=== PATIENT | male | born 1970 | race Caucasian/White ===

== ENCOUNTER 2022-06-10 10:28 | Emergency (ER) | payer MEDICAID, SELFPAY ==
[2022-06-10 10:29] VITALS: BP 140/96; PULSE 99; RESP 16; TEMP 36.1; O2SAT 100; BMI 23.3
--- NOTE | 2022-06-10 10:39 | EDS_ITS ---
HPI History of Present Illness Chief Complaint: Rash Detail of Chief Complaint: Painful rash left side of neck Informant: patient Onset/Context/Timing Onset: Days (Onset 5 days ago) Context: Sudden Onset Timing: Continuous Quality: Painful erythematous rash with clusters and blisters and crusting Location: Left lower jaw and anterior left neck. The rash does not cross midline on Current Severity: Mild Maximum Severity: Moderate Worsened by: Nothing Relieved by: Nothing Associated Symptoms Associated Symptoms: No asymmetry of the smile Narrative Narrative: Patient is a 52-year-old male who presents with painful rash that started this past Thursday. He denies headache. Denies double vision, blurred vision loss of vision. Does complain of ear pain. He denies vertigo. He denies facial asymmetry. He states his skin is sensitive. He is on no immunosuppressive meds. Prior similar symptoms: No Recent Illness/Hospitalization: No PFSH PFSH Medical History no medical history no medical history Home Medications gabapentin 300 mg capsule (Neurontin) 300 mg PO UD #90 caps 06/10/22 [Rx Last Taken Unknown] Allergy/AdvReac Type Severity Reaction Status Date / Time No Known Allergies Allergy Verified 06/10/22 10:32 Social History (Updated 06/10/22 @ 10:[address] Daron Stovall MD) household members: none Smoking Status: Current every day smoker alcohol intake: current ROS ROS ED Constitutional Constitutional ED: Denies chills, fever(s), subjective, sweats or weight loss Eyes Eyes: Denies blurry vision, change in vision or diplopia ENT ENT ED: Denies ear pain, rhinorrhea or sore throat Cardiovascular Cardiovascular: Denies chest pain, orthopnea, palpitations, paroxysmal nocturnal dyspnea or racing heartbeat Respiratory/Chest Respiratory/Chest: Denies cough, dyspnea, dyspnea on exertion, orthopnea or paroxysmal nocturnal dyspnea Gastrointestinal Gastrointestinal: Denies nausea or vomiting Integumentary Reports rash Neurologic Neurologic: Denies headache(s), paresthesias or weakness Hematologic/Lymphatic Hematologic/Lymphatic: Denies easy bleeding, easy bruising or lymphadenopathy EXAM Physical Exam Const Vital Signs: 06/10/22 10:29 Temperature 97.0 F L Temperature Source Temporal Pulse Rate 99 Respiratory Rate 16 Blood Pressure 140/96 H Blood Pressure Mean 110 Pulse Ox 100 Oxygen Delivery Method Room Air Positive well nourished, well developed and unkempt General Appearance ED: unkempt, well developed and NAD; Negative for pallor HEENT Reports TM's clear and moist mucous membranes HEENT Narrative: Patient has blisters in clusters left ear. There is rash involving the lower left jaw area and anterior neck. The rash does not cross midline. There are few areas of ulceration. There is no induration, warmth or lymphangitis. There is no drainage from the rash. Negative for trauma Tympanic Membrane ED: Yes TM's clear Eyes PERRL and EOMs intact bilaterally General Eye ED: Negative for pale conjunctiva or scleral icterus Neck No no lymphadenopathy, No supple and No no JVD Neck Narrative: Patient does have shotty lymph nodes left cervical region. Chest Wall inspection of chest normal and palpation of chest normal Resp normal respiratory effort and clear to auscultation bilaterally Cardio regular rate, regular rhythm, S1 normal heart sound and S2 normal heart sound Neuro oriented x3 and CN's II-XII intact bilaterally Psych mental status grossly normal Appearance: unkempt Skin Skin Narrative: Rash that involves the neck face region is consistent with shingles. General Skin Exam: Negative for jaundice or pallor MDM MDM MDM Narrative Medical decision making narrative: She was informed he has shingles. Since his symptoms started 5 days ago and there is no evidence or concern for [place] Anderson syndrome patient was not placed on antiviral. He was placed on Neurontin for his neuropathic pain. Discharge Plan Triage Chief Complaint: Rash ED Provider: Daron Stovall Dx/Rx/DC Orders Clinical Impression: Cervical radiculopathy due to herpes zoster Instructions: ED Shingles (Herpes Zoster) Prescriptions: New gabapentin [Neurontin] 300 mg capsule 300 mg PO UD Qty: 90 0RF Rx Instructions: Take 1 capsule daily x3 days then 1 capsules 2 times a day then 1 capsules 3 times a day Referrals: Kayli Christy [Non-Staff] - Disposition Disposition: Home, Self Care
== END 2022-06-10 11:02 | disposition home or self-care (01) ==
PROVIDERS: Emergency Provider Emergency Medicine; Visit Provider Emergency Medicine
DX: B02.9 Zoster without complications (principal); M54.12 Radiculopathy, cervical region; G62.9 Polyneuropathy, unspecified; H92.09 Otalgia, unspecified ear; F17.200 Nicotine dependence, unspecified, uncomplicated
CPT/HCPCS: 99282

== ENCOUNTER → 2022-08-13 | Outpatient (CLI) | payer MEDICAID, SELFPAY ==
[2022-08-13 17:50] LABS: Erythrocyte Sedimentation Rate 21 mm/hr (0-20)
[2022-08-13 17:52] LABS: Hematocrit 27.5 % (40-54); Hemoglobin 8.6 g/dL (13.0-16.5); Mean Corp Hgb Conc 31.3 g/dL (32-36); Mean Corpuscular Hgb 28.3 pg (27.0-32.0); Mean Corpuscular Volume 90.5 fL (80-94); Mean Platelet Vol. 10.6 fl (6.2-12.0); Platelet Count 307 K/mm3 (150-450); RBC Distribution Width CV 15.7 % (11.6-14.6); RBC Distribution Width SD 52.1 fl (35.1-43.9); Red Blood Count 3.04 M/mm3 (4.6-6.2); White Blood Count 8.5 K/mm3 (4.4-11.0)
[2022-08-13 18:15] LABS: AST(SGOT) 55 U/L (15-37); Alanine Aminotransfer ALT/SGPT 69 U/L (16-61); Albumin, Serum 3.5 g/dL (3.2-5.0); Alkaline Phosphatase 396 U/L (45-117); Anion Gap 7 (5-15); BUN 23 mg/dL (7-18); BUN/Creat Ratio 28.3 RATIO (10-20); Calcium,Total 8.9 mg/dL (8.5-10.1); Chloride 104 mmol/L (98-107); Creatinine, Serum 0.81 mg/dL (0.70-1.30); EST Glomerular Filtration Rate 107 mL/min (>60); Est Glom Filt Rate - Afr Amer 129 mL/min (>60); Globulin 3.4 g/dL (2.2-4.2); Glucose 89 mg/dL (74-106); Potassium 3.5 mmol/L (3.5-5.1); Protein, Total 6.9 g/dL (6.4-8.2); Sodium Level 139 mmol/L (136-145); Thyroid Stim Hormone (TSH) 3.32 uIU/mL (0.358-3.74)
[2022-08-15 15:05] LABS: Ferritin 16 ng/mL (26-388); Iron 41 ug/dL (65-175)
== END | disposition home or self-care (01) ==
PROVIDERS: Referring Provider Internal Medicine Gastroenterology; Visit Provider Internal Medicine Gastroenterology
DX: R63.4 Abnormal weight loss (principal); R11.0 Nausea; D50.9 Iron deficiency anemia, unspecified
CPT/HCPCS: 36415; 80053; 82728; 83540; 84436; 84443; 85027; 85652

== ENCOUNTER 2022-08-31 11:46 | Inpatient (IN) | payer MEDICAID, SELFPAY ==
[2022-08-31] VITALS (7 sets, daily range): BP systolic 113–144; BP diastolic 79–112; PULSE 95–119; RESP 9–21; TEMP 36–36.6; O2SAT 100; BMI 20.7; BMI 21.3
--- NOTE | 2022-08-31 12:00 | EKG12_ITS ---
Test Reason : WEAKNESS Blood Pressure : / mmHG Vent. Rate : 119 BPM Atrial Rate : 119 BPM P-R Int : 126 ms QRS Dur : 078 ms QT Int : 340 ms P-R-T Axes : 070 -59 083 degrees QTc Int : 478 ms Sinus tachycardia Left axis deviation Inferior infarct , age undetermined Abnormal ECG Confirmed by PONCHO NEWTON, EZEKIEL ([id number]), editor dictionary TOÑO GRUBER ([id number]) on 09/02/2022 11:10:06 AM Referred By: GIGI Confirmed By:EZEKIEL ISAAC MD
[2022-08-31] MEDS: 0.9% Normal Saline 1,000 ML 999 ML IV (12:07)
--- NOTE | 2022-08-31 12:08 | EDS_ITS ---
HPI <ARMANDO Hurt - Last Filed: 08/31/22 13:57> History of Present Illness Chief Complaint: Weakness Narrative Narrative: 52-year-old male was found on the floor at home unable to move his left arm or leg and was brought in by EMS. He cannot tell me if he fell or how long he has been there. He he states he feels weak but has no acute complaints. PFSH <ARMANDO Hurt - Last Filed: 08/31/22 13:57> [facility] Medical History (Updated 08/31/22 @ 13:[address] Francis Ross MD) Contact with and (suspected) exposure to other viral communicable diseases Esophageal cancer Home Medications pantoprazole 40 mg tablet,delayed release 40 mg PO DAILY 08/31/22 [History Last Taken Unknown] Allergy/AdvReac Type Severity Reaction Status Date / Time No Known Allergies Allergy Verified 06/10/22 10:32 Social History (Updated 06/10/22 @ 10:[address] Daron Stovall MD) household members: none Smoking Status: Former smoker alcohol intake: current ROS <ARMANDO Hurt - Last Filed: 08/31/22 13:57> ROS ED ROS Narrative Constitutional: Negative for fever. Eyes: Negative for visual change. ENT: Negative for sore throat, rhinorrhea. CVS: Negative for chest pain. Respiratory: Negative for shortness of breath. GI: Negative for abdominal pain, nausea, vomiting. : Negative for dysuria. Neuro: Negative for headache. Skin: Negative for rash, abscess, or wound. Musc: Negative for joint pain, swelling, trauma. Heme: Negative for easy bruising, bleeding, lymphadenopathy. EXAM <ARMANDO Hurt - Last Filed: 08/31/22 13:57> Physical Exam Narrative Exam Narrative: CONST: Patient sitting in no acute distress. EYES: Normal inspection. ENT: Normal inspection, dry mucous membranes. NECK: Normal inspection. RESP: No respiratory distress, CTAB. CVS: Regular rate and rhythm, no murmur, no gallop. ABD: Soft and nontender, no guarding or rebound, nondistended. SKIN: Color normal, no rash, warm, dry, intact. EXTREMITIES: Normal appearance, no pedal edema. NEURO: Patient alert and keenly responsive, correctly identifies month and age, follows simple commands, extraocular movements and visual denise intact, left facial droop, complete paralysis of left arm and leg, no drift of right arm and leg with normal finger-nose, PSYCH: Normal affect. Const Vital Signs: 08/31/22 11:48 08/31/22 11:51 08/31/22 11:51 Temperature 96.8 F L Temperature Source Temporal Pulse Rate 118 H 119 H Respiratory Rate 21 H 10 L Respiratory Effort Normal Respiratory Pattern Normal Blood Pressure 137/112 H 137/112 H Blood Pressure Mean 120 120 Pulse Ox 100 100 Oxygen Delivery Method Room Air Room Air 08/31/22 13:00 Temperature Temperature Source Pulse Rate 95 Respiratory Rate 9 L Respiratory Effort Respiratory Pattern Blood Pressure 113/79 Blood Pressure Mean 90 Pulse Ox 100 Oxygen Delivery Method Room Air <Dr. Francis Ross MD - Last Filed: 08/31/22 13:43> Physical Exam Const Vital Signs: 08/31/22 11:48 08/31/22 11:51 08/31/22 11:51 Temperature 96.8 F L Temperature Source Temporal Pulse Rate 118 H 119 H Respiratory Rate 21 H 10 L Respiratory Effort Normal Respiratory Pattern Normal Blood Pressure 137/112 H 137/112 H Blood Pressure Mean 120 120 Pulse Ox 100 100 Oxygen Delivery Method Room Air Room Air 08/31/22 13:00 Temperature Temperature Source Pulse Rate 95 Respiratory Rate 9 L Respiratory Effort Respiratory Pattern Blood Pressure 113/79 Blood Pressure Mean 90 Pulse Ox 100 Oxygen Delivery Method Room Air [facility] <ARMANDO Hurt - Last Filed: 08/31/22 13:57> [facility] Narrative Medical decision making narrative: Last known well was a week and a half ago when patient's family last saw him. He was found down today with left facial droop and complete left arm and leg paralysis. He is awake and alert on arrival and his fully oriented but cannot tell me what occurred or when he fell. He does have complete left-sided paralysis and CTA shows acute right MCA stroke. With unknown onset he is not a tPA candidate. Labs show stable anemia at 9.3, unremarkable BMP and normal CK. Patient will require admission for stroke lateral leads. Also according to family a week and a half ago he had endoscopy which diagnosed new esophageal cancer which will need further evaluated. After speaking to the hospitalist he recommended talking to [facility] to see if he is a candidate for clot retrieval. I spoke with Dr. Hood at [facility] neurology who states with last known well being unknown he is not a candidate for clot retrieval. Hospitalist updated and patient will be admitted here for stroke work-up. I have personally performed a face to face assessment of the patient and have reviewed the ZITA Note. I performed a substantive portion of the visit including all aspects of the following. My gregory findings include: History is [52-year-old male typically does not go see the doctor recent endoscopy diagnosed of esophageal CA. Parents went to check on him today and found him down. Could not move his left side. Unknown downtime or when this occurred. Patient is unsure.] Exam is [52-year-old male. Vital signs stable his blood pressure is elevated 137/112. Heart rate 118. Pulse ox 100% on room air no hypoxia. H EENT exam shows dry mucous membranes. Left facial droop. Neck nontender no lymphadenopathy. Lungs are clear. Heart tachycardic rate about 110 no murmur. Chest wall nontender. Abdomen soft nontender. He is got paralysis to his left arm and leg. He cannot lift either off the bed. Neurologically is awake. He answers very minimal questions. He follows very limited commands. He has sign ificant paralysis of the left arm and leg. With numbness. Left facial droop. NIH of 7.] Medical Decision Making [52-year-old male with left-sided stroke. No history of esophageal CA. Stroke is age indeterminate. Labs showed anemia with a hemoglobin 9.3. Normal PT/INR. Electrolytes unremarkable he does have elevated BUN of 46 and normal creatinine consistent with dehydration. We will speak to the hospitalist about admission. He is not a tPA or retrieval candidate.] Other additions or changes: [None] Lab Data Attestation: I reviewed the patient's lab results. Labs: Laboratory Results - last 24 hr 08/31/22 08/31/22 08/31/22 12:01 12:03 12:03 WBC 10.3 RBC 3.35 L Hgb 9.3 L Hct 29.9 L MCV 89.3 MCH 27.8 MCHC 31.1 L RDW Std Deviation 48.0 H RDW Coeff of [place] 14.9 H Plt Count 489 H MPV 10.0 Immature Gran % (Auto) 0.600 Neut % (Auto) 80.5 H Lymph % (Auto) 12.3 L Ransom % (Auto) 6.0 Eos % (Auto) 0.2 Baso % (Auto) 0.4 Absolute Neuts (auto) 8.3 H Absolute Lymphs (auto) 1.27 Nucleated RBC % 0 PT 14.1 INR 1.1 Sodium Potassium Chloride Carbon Dioxide Anion Gap BUN Creatinine Estim Creat Clear Calc Est GFR (MDRD) Af Amer Est GFR (MDRD) Non-Af BUN/Creatinine Ratio Glucose Calcium Total Creatine Kinase Urine Color Urine Clarity Urine pH Ur Specific Blaine Urine Protein Urine Glucose (UA) Urine Ketones Urine Occult Blood Urine Nitrite Urine Bilirubin Urine Urobilinogen Ur Leukocyte Esterase Urine RBC Urine WBC Ur Squamous Epith Cells Urine Bacteria Urine Mucus POC Glucose 110 H 08/31/22 08/31/22 12:03 12:56 WBC RBC Hgb Hct MCV MCH MCHC RDW Std Deviation RDW Coeff of Lex[place] Plt Count MPV Immature Gran % (Auto) Neut % (Auto) Lymph % (Auto) Ransom % (Auto) Eos % (Auto) Baso % (Auto) Absolute Neuts (auto) Absolute Lymphs (auto) Nucleated RBC % PT INR Sodium 139 Potassium 4.0 Chloride 103 Carbon Dioxide 28.0 Anion Gap 8 BUN 46 H Creatinine 0.93 Estim Creat Clear Calc 73.52 Est GFR (MDRD) Af Amer 111 Est GFR (MDRD) Non-Af 92 BUN/Creatinine Ratio 49.6 H Glucose 122 H Calcium 9.7 Total Creatine Kinase 247 Urine Color Yellow Urine Clarity Clear Urine pH 5.0 Ur Specific Blaine 1.025 Urine Protein 30 H Urine Glucose (UA) Normal Urine Ketones 50 H Urine Occult Blood 10 H Urine Nitrite Negative Urine Bilirubin 1 H Urine Urobilinogen 4 H Ur Leukocyte Esterase 100 H Urine RBC 0 SEEN Urine WBC 10-25 SEEN Ur Squamous Epith Cells 0-5 SEEN Urine Bacteria 1+ Urine Mucus 2+ POC Glucose Radiography Diagnostic Testing: Clinical Impression(s) from Imaging Studies Head/Neck CTA 08/31/22 12:10 IMPRESSION: 1. Occlusion of the right MCA with evidence of acute infarction involving the right MCA distribution. 2. Additional findings detailed above. Electronically Signed: Vicente Quiles MD at 12:49 EST , ADDENDUM: 08/31/22 1259 IMPRESSION: 1. Occlusion of the right MCA with evidence of acute infarction involving the right MCA distribution. 2. Additional findings detailed above. N.B. : The above Results were Read Back by Vicente Quiles MD to Dr. Cody MD, and understanding confirmed on 08/31/2022 12:52:44 (ET). Electronically Signed: Vicente Quiles MD at 12:49 EST , <Dr. Francis Ross MD - Last Filed: 08/31/22 13:43> [facility] MDM Narrative Medical decision making narrative: Last known well was a week and a half ago when patient's family last saw him. He was found down today with left facial droop and complete left arm and leg paralysis. He is awake and alert on arrival and his fully oriented but cannot tell me what occurred or when he fell. He does have complete left-sided paralysis and CTA shows acute right MCA stroke. With unknown onset he is not a tPA candidate. Labs show stable anemia at 9.3, unremarkable BMP and normal CK. Patient will require admission for stroke lateral leads. Also according to family a week and a half ago he had endoscopy which diagnosed new esophageal cancer which will need further evaluated. I have personally performed a face to face assessment of the patient and have reviewed the ZITA Note. I performed a substantive portion of the visit including all aspects of the following. My gregory findings include: History is [52-year-old male typically does not go see the doctor recent endoscopy diagnosed of esophageal CA. Parents went to check on him today and found him down. Could not move his left side. Unknown downtime or when this occurred. Patient is unsure.] Exam is [52-year-old male. Vital signs stable his blood pressure is elevated 137/112. Heart rate 118. Pulse ox 100% on room air no hypoxia. H EENT exam shows dry mucous membranes. Left facial droop. Neck nontender no lymphadenopathy. Lungs are clear. Heart tachycardic rate about 110 no murmur. Chest wall nontender. Abdomen soft nontender. He is got paralysis to his left arm and leg. He cannot lift either off the bed. Neurologically is awake. He answers very minimal questions. He follows very limited commands. He has significant paralysis of the left arm and leg. With numbness. Left facial droop. NIH of 7.] Medical Decision Making [52-year-old male with left-sided stroke. No history of esophageal CA. Stroke is age indeterminate. Labs showed anemia with a hemoglobin 9.3. Normal PT/INR. Electrolytes unremarkable he does have elevated BUN of 46 and normal creatinine consistent with dehydration. We will speak to the hospitalist about admission. He is not a tPA or retrieval candidate.] Other additions or changes: [None] Lab Data Labs: Laboratory Results - last 24 hr 08/31/22 08/31/22 08/31/22 12:01 12:03 12:03 WBC 10.3 RBC 3.35 L Hgb 9.3 L Hct 29.9 L MCV 89.3 MCH 27.8 MCHC 31.1 L RDW Std Deviation 48.0 H RDW Coeff of Lexus 14.9 H Plt Count 489 H MPV 10.0 Immature Gran % (Auto) 0.600 Neut % (Auto) 80.5 H Lymph % (Auto) 12.3 L Ransom % (Auto) 6.0 Eos % (Auto) 0.2 Baso % (Auto) 0.4 Absolute Neuts (auto) 8.3 H Absolute Lymphs (auto) 1.27 Nucleated RBC % 0 PT 14.1 INR 1.1 Sodium Potassium Chloride Carbon Dioxide Anion Gap BUN Creatinine Estim Creat Clear Calc Est GFR (MDRD) Af Amer Est GFR (MDRD) Non-Af BUN/Creatinine Ratio Glucose Calcium Total Creatine Kinase Urine Color Urine Clarity Urine pH Ur Specific Blaine Urine Protein Urine Glucose (UA) Urine Ketones Urine Occult Blood Urine Nitrite Urine Bilirubin Urine Urobilinogen Ur Leukocyte Esterase Urine RBC Urine WBC Ur Squamous Epith Cells Urine Bacteria Urine Mucus POC Glucose 110 H 08/31/22 08/31/22 12:03 12:56 WBC RBC Hgb Hct MCV MCH MCHC RDW Std Deviation RDW Coeff of Lexus Plt Count MPV Immature Gran % (Auto) Neut % (Auto) Lymph % (Auto) Ransom % (Auto) Eos % (Auto) Baso % (Auto) Absolute Neuts (auto) Absolute Lymphs (auto) Nucleated RBC % PT INR Sodium 139 Potassium 4.0 Chloride 103 Carbon Dioxide 28.0 Anion Gap 8 BUN 46 H Creatinine 0.93 Estim Creat Clear Calc 73.52 Est GFR (MDRD) Af Amer 111 Est GFR (MDRD) Non-Af 92 BUN/Creatinine Ratio 49.6 H Glucose 122 H Calcium 9.7 Total Creatine Kinase 247 Urine Color Yellow Urine Clarity Clear Urine pH 5.0 Ur Specific Blaine 1.025 Urine Protein 30 H Urine Glucose (UA) Normal Urine Ketones 50 H Urine Occult Blood 10 H Urine Nitrite Negative Urine Bilirubin 1 H Urine Urobilinogen 4 H Ur Leukocyte Esterase 100 H Urine RBC 0 SEEN Urine WBC 10-25 SEEN Ur Squamous Epith Cells 0-5 SEEN Urine Bacteria 1+ Urine Mucus 2+ POC Glucose Radiography Diagnostic Testing: Clinical Impression(s) from Imaging Studies Head/Neck CTA 08/31/22 12:10 IMPRESSION: 1. Occlusion of the right MCA with evidence of acute infarction involving the right MCA distribution. 2. Additional findings detailed above. Electronically Signed: Vicente Quiles MD at 12:49 EST , ADDENDUM: 08/31/22 1259 IMPRESSION: 1. Occlusion of the right MCA with evidence of acute infarction involving the right MCA distribution. 2. Additional findings detailed above. N.B. : The above Results were Read Back by Vicente Quiles MD to Dr. Cody MD, and understanding confirmed on 08/31/2022 12:52:44 (ET). Electronically Signed: Vicente Quiles MD at 12:49 EST , <Dr. Francis Ross MD - Last Filed: 08/31/22 13:43> Critical Care Time Critical Care Time: Yes Critical care time (excluding procedures): 30-74 minutes, Including time spent:, Discussing w/Patient &/or Family/Tax Lawyer, Discussing w/Consultants, Arranging Admission or Transfer, Performing Direct Patient Care at Bedside and - (35 minutes) Discharge Plan Dx/Rx/DC Orders Clinical Impression: Stroke, Anemia, History of esophageal cancer, Hypertension, Acute dehydration Disposition Disposition: Acute Care Hospital [facility]
--- NOTE | 2022-08-31 12:10 | CT_ITS ---
We are attempting to reach an attending provider to discuss findings. An addendum with communication details will be sent when the communication is complete. EXAM: CT ANGIOGRAPHY HEAD AND NECK WITH INTRAVENOUS CONTRAST CLINICAL INDICATION: left paralysis TECHNIQUE: [place]/head and neck CT angiography protocol performed with intravenous contrast. This CT exam was performed using one or more of the following dose reduction techniques: automated exposure control, adjustment of the mA and/or kV according to patient size, and/or use of iterative reconstruction technique. This report was created using [employer] report generation technology. MIP reconstructed images were created and reviewed. CONTRAST: IV 100mL [id number] COMPARISON: None. FINDINGS: HEAD: RIGHT ANTERIOR CEREBRAL ARTERY: Normal. No significant stenosis at the visualized segments. Anterior communicating artery is present. No aneurysm. RIGHT MIDDLE CEREBRAL ARTERY: Occlusion of the M1 segment of right MCA. Distal branches fill via collateral vessels. RIGHT POSTERIOR CEREBRAL ARTERY: Normal. No occlusion or significant stenosis. No aneurysm. RIGHT INTRACRANIAL INTERNAL CAROTID ARTERY: Normal. No significant stenosis. No dissection or occlusion. RIGHT INTRACRANIAL VERTEBRAL ARTERY: Normal. No significant stenosis. No dissection or occlusion. LEFT ANTERIOR CEREBRAL ARTERY: Normal. No significant stenosis at the visualized segments. No aneurysm. LEFT MIDDLE CEREBRAL ARTERY: Normal. No significant stenosis at the visualized segments. No aneurysm. LEFT POSTERIOR CEREBRAL ARTERY: Left posterior communicating artery is present. No occlusion or significant stenosis. No aneurysm. LEFT INTRACRANIAL INTERNAL CAROTID ARTERY: Normal. No significant stenosis. No dissection or occlusion. LEFT INTRACRANIAL VERTEBRAL ARTERY: Normal. No significant stenosis. No dissection or occlusion. BASILAR ARTERY: Normal. No significant stenosis. No aneurysm. OTHER VASCULATURE: No vascular malformation. BRAIN AND EXTRA-AXIAL SPACES: Large area of hypodensity involves the right basal ganglia, right external RIGHT TEMPORAL LOBE CONSISTENT WITH ACUTE/SUBACUTE NONHEMORRHAGIC INFARCT INVOLVING THE RIGHT MCA DISTRIBUTION. RESULTING EDEMA COMPRESSES THE RIGHT FRONTAL HORN. NECK: RIGHT COMMON CAROTID ARTERY: Normal. No significant stenosis. No dissection or occlusion. RIGHT EXTRACRANIAL INTERNAL CAROTID ARTERY: Normal. No significant stenosis. No dissection or occlusion. RIGHT EXTERNAL CAROTID ARTERY: Normal. No occlusion. RIGHT EXTRACRANIAL VERTEBRAL ARTERY: Normal. No significant stenosis. No dissection or occlusion. LEFT COMMON CAROTID ARTERY: Normal. No significant stenosis. No dissection or occlusion. LEFT EXTRACRANIAL INTERNAL CAROTID ARTERY: Normal. No significant stenosis. No dissection or occlusion. LEFT EXTERNAL CAROTID ARTERY: Normal. No occlusion. 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 GREAT VESSELS OF AORTIC ARCH: No evidence of aneurysm or stenosis. AORTA: Calcified ductus mediastinal lymph nodes related to old granulomatous disease. LUNG APICES: Centrilobular pulmonary emphysema noted at the lung apices. MEDIASTINUM: Fluid distention of the esophagus may be related to esophageal obstruction, esophageal discontinuity and gastroesophageal reflux. HEAD and NECK: BONES/JOINTS: Normal. No discrete lytic or blastic abnormalities. SOFT TISSUES: Normal. CAROTID STENOSIS REFERENCE USING NASCET CRITERIA: % ICA stenosis = (1 - narrowest ICA diameter/diameter of distal cervical ICA) x 100. Mild - <50% stenosis. Moderate - 50-69% stenosis. Severe - 70-94% stenosis. Near occlusion - 95-99% stenosis. Occluded - 100% stenosis. CT/CTA Head AND Neck W/ Contrast IMPRESSION: 1. Occlusion of the right MCA with evidence of acute infarction involving the right MCA distribution. 2. Additional findings detailed above. Electronically Signed: Vicente Quiles MD at 12:49 EST ,
[2022-08-31 12:11] LABS: Absolute Lymphocyte Count 1.27 X10^3/uL (0.83-4.51); Absolute Neutrophil Count 8.3 X10^3/uL (2.0-7.7); Basophil# 0.04 X10^3/uL; Basophil% 0.4 % (0-1); Eosinophil# 0.02 X10^3/uL; Eosinophils% 0.2 % (0-5); Hematocrit 29.9 % (40-54); Hemoglobin 9.3 g/dL (13.0-16.5); Lymphocyte # 1.27 X10^3/ul (0.83-4.51); Lymphocyte % 12.3 % (19-41); Mean Corp Hgb Conc 31.1 g/dL (32-36); Mean Corpuscular Hgb 27.8 pg (27.0-32.0); Mean Corpuscular Volume 89.3 fL (80-94); Monocyte# 0.62 X10^3/uL; NRBC Flagged by Analyzer 0 % (0-5); Neutrophil # 8.33 X10^3/uL (2.7-7.7); Neutrophil % 80.5 % (47-70); Platelet Count 489 K/mm3 (150-450); RBC Distribution Width CV 14.9 % (11.6-14.6); Red Blood Count 3.35 M/mm3 (4.6-6.2); White Blood Count 10.3 K/mm3 (4.4-11.0)
[2022-08-31 12:20] LABS: Bedside Glucose 110 mg/dL (74-106)
[2022-08-31 12:28] LABS: International Normalized Ratio 1.1; Prothrombin Time (Protime)PT. 14.1 SECONDS (11.7-14.9)
[2022-08-31 12:35] LABS: Anion Gap 8 (5-15); BUN 46 mg/dL (7-18); BUN/Creat Ratio 49.6 RATIO (10-20); CPK Total, Creatine Kinase 247 U/L (39-308); Calcium,Total 9.7 mg/dL (8.5-10.1); Chloride 103 mmol/L (98-107); Creatinine, Serum 0.93 mg/dL (0.70-1.30); EST Glomerular Filtration Rate 92 mL/min (>60); Est Glom Filt Rate - Afr Amer 111 mL/min (>60); Estimated Creatinine Clearance 73.52 ml/min; Glucose 122 mg/dL (74-106); Sodium Level 139 mmol/L (136-145)
[2022-08-31 13:02] LABS: Red Blood Cells-Urine 0 SEEN /hpf (0-5)
[2022-08-31 13:04] LABS: Color, Urine Yellow (Yellow); Glucose, Dipstick Normal (Normal); Ketone-Dipstick 50 mg/dl (Negative); Leukocyte Esterase-Dipstick 100 /ul (Negative); Nitrite-Dipstick Negative (Negative); Occult Blood-Urine 10 /ul (Negative); Protein-Dipstick 30 mg/dl (Negative); Specific Gravity, Urine 1.025 (1.002-1.030); Urine Clarity Clear (Clear); Urine Urobilinogen 4 mg/dl (Normal)
[2022-08-31 13:10] LABS: Urine Bilirubin Dipstick 1 mg/dL (Negative)
[2022-08-31 13:11] LABS: Bacteria 1+ /hpf (None Seen); Mucous, Urine 2+ /hpf (<or=2+); Squamous Epithelial Cells - UA 0-5 SEEN /hpf (0-5); White Blood Cells 10-25 SEEN /hpf (0-5)
--- NOTE | 2022-08-31 13:38 | ED.RN ---
Danielle ROBERTS denied STROKE ALERT due to unknown sx onset.
--- NOTE | 2022-08-31 15:34 | PCM.HP.STD ---
HPI - General General Date of Admission: 08/31/22 Date of Service: 08/31/22 Chief Complaint: Found down HPI Narrative KELLY DE JESUS, is a 52 M who presents after being found down by family. Patient had not been seen nor contacted by family in about a week and a half. Patient states that he is only down for about an hour but upon further inquiry, patient has no recollection of the events from yesterday. He told me he watch the [employer] and that [employer] won (they lost 45-23). I asked him what he was doing during the game he said he was laying around. Said he was doing that Thursday as well. So is unclear as to how long the patient has been down. [facility] neurology was contacted as patient was found to have a right MCA stroke. Given that the time of onset was unclear they felt the patient was too far gone potentially to have retrieval did not recommend transfer. [facility] Medical History Contact with and (suspected) exposure to other viral communicable diseases Esophageal cancer Home Medications pantoprazole 40 mg tablet,delayed release 40 mg PO DAILY 08/31/22 [History Last Taken Unknown] Allergy/AdvReac Type Severity Reaction Status Date / Time No Known Allergies Allergy Verified 06/10/22 10:32 Social History household members: none Smoking Status: Former smoker alcohol intake: current ROS ROS Narrative Patient minimizes his symptoms saying that he can move his left side when he clearly cannot. Not sure if that is due to just left-sided neglect but denies all complaints all review of systems were negative except as mentioned above in the history of present illness and the other review of systems. Vital Signs Vital Signs Vital Signs: 08/31/22 11:48 08/31/22 11:51 08/31/22 11:51 Temperature 36.0 C L Temperature Source Temporal Pulse Rate 118 H 119 H Respiratory Rate 21 H 10 L Respiratory Effort Normal Respiratory Pattern Normal Blood Pressure 137/112 H 137/112 H Blood Pressure Mean 120 120 Blood Pressure Source Blood Pressure Position Blood Pressure Location Pulse Ox 100 100 Oxygen Delivery Method Room Air Room Air 08/31/22 13:00 08/31/22 14:29 08/31/22 15:04 Temperature 36.0 C L 36.6 C Temperature Source Temporal Temporal Pulse Rate 95 95 100 Respiratory Rate 9 L 9 L 16 Respiratory Effort Respiratory Pattern Blood Pressure 113/79 115/90 H 130/93 H Blood Pressure Mean 90 98 105 Blood Pressure Source Monitor Blood Pressure Position Semi-Fowlers Blood Pressure Location Left Arm Pulse Ox 100 100 100 Oxygen Delivery Method Room Air Room Air Room Air Weight Weight: 54.7 kg Body Mass Index (BMI) 20.7 Physical Exam Const alert and no apparent distress HEENT normocephalic and head/scalp atraumatic Eyes PERRL and EOMs intact bilaterally Neck no lymphadenopathy and no carotid bruits Resp normal respiratory effort, no retractions, no use of accessory muscles and clear to auscultation bilaterally Cardio regular rate, regular rhythm, S1 normal heart sound and S2 normal heart sound GI normal to inspection, nondistended, normoactive bowel sounds, soft to palpation, non-tender and non-distended Extremity Extremity Narrative: Diffuse atrophy throughout. No edema. Neuro oriented x3 and CN's II-XII intact bilaterally Neuro Narrative: Muscle strength is 5-5 in the right upper and right lower extremity and 0-5 in the left upper and left lower extremity. Sensation is intact in the right side but has no response on the left. He 1 time he states that he feels something on his left when he sees my hand being applied to the left side. When distracted he does not recognize sensation on the left. Psych affect normal Results Lab / Micro Data Attestation: I reviewed the patient's lab results. Result Diagrams: 08/31/22 12:03 08/31/22 12:03 Labs: Laboratory Results - last 24 hr 08/31/22 12:01: POC Glucose 110 H 08/31/22 12:03: WBC 10.3, RBC 3.35 L, Hgb 9.3 L, Hct 29.9 L, MCV 89.3, MCH 27.8, MCHC 31.1 L, RDW Std Deviation 48.0 H, RDW Coeff of Lexus 14.9 H, Plt Count 489 H, MPV 10.0, Immature Gran % (Auto) 0.600, Neut % (Auto) 80.5 H, Lymph % (Auto) 12.3 L, Blair % (Auto) 6.0, Eos % (Auto) 0.2, Baso % (Auto) 0.4, Absolute Neuts (auto) 8.3 H, Absolute Lymphs (auto) 1.27, Nucleated RBC % 0 08/31/22 12:03: PT 14.1, INR 1.1 08/31/22 12:03: Sodium 139, Potassium 4.0, Chloride 103, Carbon Dioxide 28.0, Anion Gap 8, BUN 46 H, Creatinine 0.93, Estim Creat Clear Calc 73.52, Est GFR (MDRD) Af Amer 111, Est GFR (MDRD) Non-Af 92, BUN/Creatinine Ratio 49.6 H, Glucose 122 H, Calcium 9.7, Total Creatine Kinase 247 08/31/22 12:56: Urine Color Yellow, Urine Clarity Clear, Urine pH 5.0, Ur Specific [place] 1.025, Urine Protein 30 H, Urine Glucose (UA) Normal, Urine Ketones 50 H, Urine Occult Blood 10 H, Urine Nitrite Negative, Urine Bilirubin 1 H, Urine Urobilinogen 4 H, Ur Leukocyte Esterase 100 H, Urine RBC 0 SEEN, Urine WBC 10-25 SEEN, Ur Squamous Epith Cells 0-5 SEEN, Urine Bacteria 1+, Urine Mucus 2+ Radiology Impression Head/Neck CTA 08/31/22 12:10 IMPRESSION: 1. Occlusion of the right MCA with evidence of acute infarction involving the right MCA distribution. 2. Additional findings detailed above. Electronically Signed: Vicente Quiles MD at 12:49 EST Reading Location ID and State: [facility] / [place] Tel , Service support , ADDENDUM: 08/31/22 1259 IMPRESSION: 1. Occlusion of the right MCA with evidence of acute infarction involving the right MCA distribution. 2. Additional findings detailed above. N.B. : The above Results were Read Back by Vicente Quiles MD to Dr. Cody MD, and understanding confirmed on 08/31/2022 12:52:44 (ET). Electronically Signed: Vicente Quiles MD at 12:49 EST , Assessment & Plan Assessment/Plan (1) Acute right MCA stroke: PLAN: Onset is unclear. Patient's history of only being down an hour is unreliable. Therefore, patient is not candidate for retrieval at a tertiary facility. This was discussed with [facility] through the emergency room. Will initiate aspirin Complete the rest of stroke work-up with an MRI of the brain, 2D echocardiogram, fasting lipid panel. Therapy evaluations including speech therapy and a swallow evaluation. Diet when patient passes swallow evaluation. PLAN: Plan Chronic conditions Patient has esophageal cancer unclear staging. GERD: Continue PPI Anemia: Stable. Monitor. VTE prophylaxis: SCDs for now given the right MCA stroke and potential for hemorrhagic transformation Charges/Coding Visit Charges Inpatient E&M: 84616 Init Hosp L3
[2022-08-31 16:02] LABS: Troponin-I HS 1199 pg/mL (3.0-78.0)
--- NOTE | 2022-08-31 19:37 | ECHOCS_ITS ---
Reason For Study: TIA/CVA Procedure This was a 2D Doppler, Color Flow transthoracic echocardiogram. The study was technically difficult. Contrast injection was performed. Exam performed portable in patient room. Left Ventricle Normal LV size. Left ventricular systolic function is normal. The estimated ejection fraction is 60 %. No regional wall motion abnormalities noted. Right Ventricle Normal RV size. Normal systolic function. Atria Normal left atrium. Normal right atrium. Mitral Valve Mitral valve not well visualized. Tricuspid Valve Normal tricuspid valve. Aortic Valve Trisinus/trileaflet aortic valve. Pulmonic Valve Normal pulmonic valve. Great Vessels Normal aortic root. The pulmonary artery is normal size. Normal inferior vena cava. Pericardium/Pleural Localized effusion. There are no echocardiographic indications of cardiac tamponade. Medication Diluted definity 1ml given slow IV push to enhance endocardial definition. MMode/2D Measurements & Calculations LVIDd: 3.8 cm IVSd: 1.6 cm LVIDs: 2.6 cm LVPWd: 1.1 cm FS: 30.6 % Time Measurements MV dec time: 0.15 sec Doppler Measurements & Calculations MV E max eddie: 80.9 cm/sec Lat Peak E' Eddie: 11.9 cm/sec MV dec slope: 554.7 cm/sec2 MV A max eddie: 91.7 cm/sec E/E' lat: 6.8 MV E/A: 0.88 Ao V2 max: 99.5 cm/sec LV V1 max: 90.9 cm/sec PA V2 max: 163.3 cm/sec Ao max P.0 mmHg LV V1 max P.3 mmHg PA V2 mean: 105.4 cm/sec Ao V2 mean: 68.0 cm/sec LV V1 mean P.8 mmHg Ao mean P.1 mmHg LV V1 mean: 63.9 cm/sec Ao V2 VTI: 15.8 cm LV V1 VTI: 14.6 cm AV (velocity ratio): 0.92 ECHO/Echo Complete W/ Contrast Interpretation Summary Normal LV size. Left ventricular systolic function is normal. The estimated ejection fraction is 60 %. Localized effusion. There are no echocardiographic indications of cardiac tamponade. Contrast injection was performed. Ordering Physician: Mitchel Lucero Referring Physician: JANELLE PCP Performed By: Ana Mishra RCS
[2022-08-31] MEDS: 0.9% Saline Lock 10 ML Syringe IV (20:25)
[2022-08-31] MEDS: 0.9% Normal Saline 1,000 ML 125 ML IV (20:25)
[2022-08-31] MEDS: Aspirin 300 MG Suppository RC (20:55)
[2022-08-31 21:14] LABS: Troponin-I HS 1104 pg/mL (3.0-78.0)
[2022-09-01] VITALS (11 sets, daily range): BP systolic 113–128; BP diastolic 79–91; PULSE 108–124; RESP 16–18; TEMP 36.4–37.1; O2SAT 98–100; BMI 21.3
[2022-09-01] MEDS: 0.9% Normal Saline 1,000 ML 125 ML IV ×3 (04:22→20:18)
[2022-09-01 05:25] LABS: Absolute Lymphocyte Count 1.13 X10^3/uL (0.83-4.51); Absolute Neutrophil Count 7.5 X10^3/uL (2.0-7.7); Basophil# 0.06 X10^3/uL; Basophil% 0.6 % (0-1); Eosinophil# 0.01 X10^3/uL; Eosinophils% 0.1 % (0-5); Hematocrit 24.5 % (40-54); Hemoglobin 7.3 g/dL (13.0-16.5); Lymphocyte # 1.13 X10^3/ul (0.83-4.51); Lymphocyte % 11.9 % (19-41); Mean Corp Hgb Conc 29.8 g/dL (32-36); Mean Corpuscular Hgb 26.7 pg (27.0-32.0); Mean Corpuscular Volume 89.7 fL (80-94); Mean Platelet Vol. 10.4 fl (6.2-12.0); Monocyte# 0.72 X10^3/uL; Monocyte% 7.6 % (0-10); NRBC Flagged by Analyzer 0 % (0-5); Neutrophil % 79.2 % (47-70); Platelet Count 373 K/mm3 (150-450); RBC Distribution Width CV 15.2 % (11.6-14.6); RBC Distribution Width SD 49.8 fl (35.1-43.9); Red Blood Count 2.73 M/mm3 (4.6-6.2); White Blood Count 9.5 K/mm3 (4.4-11.0)
[2022-09-01 06:14] LABS: Anion Gap 8 (5-15); BUN 50 mg/dL (7-18); BUN/Creat Ratio 55.3 RATIO (10-20); Calcium,Total 8.4 mg/dL (8.5-10.1); Chloride 109 mmol/L (98-107); Cholesterol 179 mg/dL (200); EST Glomerular Filtration Rate 94 mL/min (>60); Est Glom Filt Rate - Afr Amer 114 mL/min (>60); Estimated Creatinine Clearance 78.61 ml/min; Glucose 100 mg/dL (74-106); High Density Lipoprotein 35 mg/dL; Sodium Level 141 mmol/L (136-145); Triglycerides 154 mg/dL; Very Low Density Lipoprotein 31 mg/dL (5-40)
--- NOTE | 2022-09-01 06:43 | MRI_ITS ---
EXAM: MR HEAD WITHOUT INTRAVENOUS CONTRAST CLINICAL INDICATION: CVA TECHNIQUE: Multiplanar and multisequence MR images of the brain were obtained without intravenous contrast. This report was created using [employer] report generation technology. COMPARISON: CTA head and neck with contrast 08/31/2022. FINDINGS: BRAIN AND EXTRA-AXIAL SPACES: Large diffusion restriction involving the right MCA territory including the lenticulostriate branches. This is also visible on the T2 FLAIR sequence and consistent with subacute ischemic infarction. No intra- or extra-axial hemorrhage. No intracranial mass or mass effect. Posterior fossa structures are unremarkable. Basal cisterns are patent. SELLA: Unremarkable. Normal sella turcica, pituitary gland, infundibular stalk, optic chiasm and hypothalamus. AUDITORY SYSTEM: Unremarkable. The internal auditory canals are patent. BONES/JOINTS: Unremarkable. No discrete lytic or blastic abnormalities. SINUSES: Unremarkable as visualized. Clear. MASTOID AIR CELLS: Unremarkable as visualized. Clear. ORBITS: Unremarkable as visualized. Both globes, extraocular muscles, optic nerves and retrobulbar fat appear unremarkable. VASCULATURE: Unremarkable as visualized. Normal flow voids in the major intracranial circulation. MRI/Brain without Contrast IMPRESSION: 1. Subacute cortical based ischemic infarction involving the right temporal lobe, right insular lobe and the lenticulostriate branches of the right M1 segment. 2. No significant interval change when compared to CTA head of 08/31/2022. Electronically Signed: Tevin Cooney MD at 11:15 EST ,
--- NOTE | 2022-09-01 06:58 | PCM.CONS.C ---
Assessment & Plan Assessment/Plan (1) Non-ST elevation (NSTEMI) myocardial infarction: PLAN: Patient presents with an acute cerebrovascular accident and is noted to have elevated cardiac enzymes. My recommendation at this time will be to obtain an echocardiogram to assess his ventricular function. Depending on the results as well as his recovery further recommendations will be made. At this particular time he does not appear to be very coherent and I will try and make sure that other issues are resolved before resorting to any other cardiac work-up. Thank you for allowing me to participate in the care of your patient. Please don't hesitate to call if any issues arise. HPI Consult Data Date of Consult: 09/01/22 HPI Narrative HPI Narrative: KELLY DE JESUS, is a 52 M who presents after being found at home lying on the floor and then brought to the emergency room. He subsequently was noted to have a right MCA territory stroke. Cardiac enzymes were obtained and were noted to be abnormal and thus cardiology was consulted. He denies any chest pain or shortness of breath or paroxysmal nocturnal dyspnea or pedal edema. No neck arm or jaw discomfort to suggest angina. No other cardiac issues or symptoms are noted. His EKG was evaluated and demonstrated sinus tachycardia with no acute changes. [facility] Medical History Contact with and (suspected) exposure to other viral communicable diseases Esophageal cancer Home Medications pantoprazole 40 mg tablet,delayed release 40 mg PO DAILY 08/31/22 [History Last Taken Unknown] Allergy/AdvReac Type Severity Reaction Status Date / Time No Known Allergies Allergy Verified 06/10/22 10:32 Social History household members: none Smoking Status: Former smoker alcohol intake: current ROS Constitutional Constitutional: Denies fever(s) or weight loss Eyes Eyes: Reports systems reviewed and no addt'l complaints, except as documented ENT HEENT: Reports systems reviewed and no addt'l complaints, except as documented Cardiovascular Cardiovascular: Denies chest pain at rest, chest pain with activity, dyspnea at rest, dyspnea on exertion, edema, palpitations or paroxysmal nocturnal dyspnea Respiratory/Chest Respiratory/Chest: Denies dyspnea on exertion, productive cough, shortness of breath at rest or shortness of breath with exertion Gastrointestinal Gastrointestinal: Denies change in bowel habits, nausea, vomiting or weight changes Genitourinary Genitourinary: Denies difficulty urinating Musculoskeletal Musculoskeletal: Denies joint stiffness or muscle weakness Integumentary Integumentary: Denies lesions Neurologic Neurologic: Denies dizziness or syncope Psychiatric Psychiatric: Denies anxiety Endocrine Endocrinology: Denies excessive sweating or fatigue Hematologic/Lymphatic Hematologic/Lymphatic: Denies anemia Allergic/Immunologic Allergic/Immunologic: Denies seasonal rhinorrhea Physical Exam Const no apparent distress General Appearance: cooperative HEENT hearing grossly normal bilaterally Head and Scalp: atraumatic Eyes EOMs intact bilaterally Neck General: normal visual inspection Chest inspection of chest normal and palpation of chest normal Resp normal respiratory effort Auscultation: clear to auscultation bilaterally Cardio regular rate, regular rhythm, S1 normal heart sound and S2 normal heart sound Jugular Venous Distention: JVD GI normal to inspection, nondistended, normoactive bowel sounds Extremity normal capillary refill and no pedal edema Peripheral Pulses: Yes pulses 2+ throughout and femoral pulses present Skin no rashes or lesions noted Neuro oriented x3 and CN's II-XII intact bilaterally Psych Appearance: grossly normal and appropriate Risk Stratification Risk Stratification Applicable: Yes Age >/= 65: No >/= 3 CAD Risk Factors (HTN, HLD, DM, family hx of CAD, or current smoker): No Aspirin Use in the Past 7 Days: No Severe Angina (>/= episodes in 24 hours): No EKG ST Changes >/= 0.5mm: No Positive Cardiac Marker: Yes MARILYN Risk Stratification Score: 1 MARILYN % Risk: 5% Risk Objective Data Vital Signs: Vital Signs Temp Pulse Resp BP Pulse Ox O2 Del Method 98.7 F 116 H 18 126/86 H 99 Room Air 09/01/22 04:00 09/01/22 04:00 09/01/22 04:00 09/01/22 04:00 09/01/22 04:00 09/01/22 04:00 Oxygen Delivery Method Room Air Weight: 124 lb 12.506 oz Body Mass Index (BMI) 21.3 Intake & Output: Intake and Output for Last 24 Hours 08/30/22 08/31/22 09/01/22 23:59 23:59 23:59 Intake Total 1000 / 1000 993.75 / 993.75 Balance 1000 / 1000 993.75 / 993.75 Lab / Micro Data Result Diagrams: 09/01/22 04:32 09/01/22 04:32 Labs: Laboratory Results - last 24 hr 08/31/22 12:01: POC Glucose 110 H 08/31/22 12:03: WBC 10.3, RBC 3.35 L, Hgb 9.3 L, Hct 29.9 L, MCV 89.3, MCH 27.8, MCHC 31.1 L, RDW Std Deviation 48.0 H, RDW Coeff of Lexus 14.9 H, Plt Count 489 H, MPV 10.0, Immature Gran % (Auto) 0.600, Neut % (Auto) 80.5 H, Lymph % (Auto) 12.3 L, Cannon % (Auto) 6.0, Eos % (Auto) 0.2, Baso % (Auto) 0.4, Absolute Neuts (auto) 8.3 H, Absolute Lymphs (auto) 1.27, Nucleated RBC % 0 08/31/22 12:03: PT 14.1, INR 1.1 08/31/22 12:03: Sodium 139, Potassium 4.0, Chloride 103, Carbon Dioxide 28.0, Anion Gap 8, BUN 46 H, Creatinine 0.93, Estim Creat Clear Calc 73.52, Est GFR (MDRD) Af Amer 111, Est GFR (MDRD) Non-Af 92, BUN/Creatinine Ratio 49.6 H, Glucose 122 H, Calcium 9.7, Total Creatine Kinase 247 08/31/22 12:03: Troponin I High Sens 1199 H* 08/31/22 12:56: Urine Color Yellow, Urine Clarity Clear, Urine pH 5.0, Ur Specific Strawberry 1.025, Urine Protein 30 H, Urine Glucose (UA) Normal, Urine Ketones 50 H, Urine Occult Blood 10 H, Urine Nitrite Negative, Urine Bilirubin 1 H, Urine Urobilinogen 4 H, Ur Leukocyte Esterase 100 H, Urine RBC 0 SEEN, Urine WBC 10-25 SEEN, Ur Squamous Epith Cells 0-5 SEEN, Urine Bacteria 1+, Urine Mucus 2+ 08/31/22 20:26: Troponin I High Sens 1104 H* 09/01/22 04:32: WBC 9.5, RBC 2.73 L, Hgb 7.3 L, Hct 24.5 L, MCV 89.7, MCH 26.7 L, MCHC 29.8 L, RDW Std Deviation 49.8 H, RDW Coeff of Lexus 15.2 H, Plt Count 373, MPV 10.4, Immature Gran % (Auto) 0.600, Neut % (Auto) 79.2 H, Lymph % (Auto) 11.9 L, Cannon % (Auto) 7.6, Eos % (Auto) 0.1, Baso % (Auto) 0.6, Absolute Neuts (auto) 7.5, Absolute Lymphs (auto) 1.13, Nucleated RBC % 0 09/01/22 04:32: Sodium 141, Potassium 4.0, Chloride 109 H, Carbon Dioxide 24.0, Anion Gap 8, BUN 50 H, Creatinine 0.90, Estim Creat Clear Calc 78.61, Est GFR (MDRD) Af Amer 114, Est GFR (MDRD) Non-Af 94, BUN/Creatinine Ratio 55.3 H, Glucose 100, Calcium 8.4 L, Triglycerides 154, Cholesterol 179, LDL Cholesterol 113, VLDL Cholesterol 31, HDL Cholesterol 35 L Cardiology Labs/Tests 08/31/22 12:03: WBC 10.3, RBC 3.35 L, Hgb 9.3 L, Hct 29.9 L, MCV 89.3, MCH 27.8, MCHC 31.1 L, Plt Count 489 H, MPV 10.0, Immature Gran % (Auto) 0.600, Neut % (Auto) 80.5 H, Lymph % (Auto) 12.3 L, Cannon % (Auto) 6.0, Eos % (Auto) 0.2, Baso % (Auto) 0.4, Absolute Neuts (auto) 8.3 H, Nucleated RBC % 0 08/31/22 12:03: PT 14.1, INR 1.1 08/31/22 12:03: Sodium 139, Potassium 4.0, Chloride 103, Carbon Dioxide 28.0, Anion Gap 8, BUN 46 H, Creatinine 0.93, Est GFR (MDRD) Af Amer 111, Est GFR (MDRD) Non-Af 92, BUN/Creatinine Ratio 49.6 H, Glucose 122 H, Calcium 9.7 08/31/22 12:56: Urine Color Yellow, Urine Clarity Clear, Urine pH 5.0, Ur Specific Strawberry 1.025, Urine Protein 30 H, Urine Glucose (UA) Normal, Urine Ketones 50 H, Urine Occult Blood 10 H, Urine Nitrite Negative, Urine Bilirubin 1 H, Urine Urobilinogen 4 H, Ur Leukocyte Esterase 100 H, Urine RBC 0 SEEN, Urine WBC 10-25 SEEN 09/01/22 04:32: WBC 9.5, RBC 2.73 L, Hgb 7.3 L, Hct 24.5 L, MCV 89.7, MCH 26.7 L, MCHC 29.8 L, Plt Count 373, MPV 10.4, Immature Gran % (Auto) 0.600, Neut % (Auto) 79.2 H, Lymph % (Auto) 11.9 L, Cannon % (Auto) 7.6, Eos % (Auto) 0.1, Baso % (Auto) 0.6, Absolute Neuts (auto) 7.5, Nucleated RBC % 0 09/01/22 04:32: Sodium 141, Potassium 4.0, Chloride 109 H, Carbon Dioxide 24.0, Anion Gap 8, BUN 50 H, Creatinine 0.90, Est GFR (MDRD) Af Amer 114, Est GFR (MDRD) Non-Af 94, BUN/Creatinine Ratio 55.3 H, Glucose 100, Calcium 8.4 L, Triglycerides 154, Cholesterol 179, LDL Cholesterol 113, VLDL Cholesterol 31, HDL Cholesterol 35 L Rhythm: EKG: ECHO: Stress Test: Cardiac Cath: PCI: CT Surgery: Holter monitor: EPS: PPM: CXR: Chest CT Scan: Radiography Diagnostic Testing: Radiology Impression Head/Neck CTA 08/31/22 12:10 IMPRESSION: 1. Occlusion of the right MCA with evidence of acute infarction involving the right MCA distribution. 2. Additional findings detailed above. Electronically Signed: Vicente Quiles MD at 12:49 EST , ADDENDUM: 08/31/22 3678 IMPRESSION: 1. Occlusion of the right MCA with evidence of acute infarction involving the right MCA distribution. 2. Additional findings detailed above. N.B. : The above Results were Read Back by Vicente Quiles MD to Dr. Cody MD, and understanding confirmed on 08/31/2022 12:52:44 (ET). Electronically Signed: Vicente Quiles MD at 12:49 EST ,
--- NOTE | 2022-09-01 11:34 | CASEMGMT ---
SW went to patient's room. DIAN introduced self and role at [facility]. SW asked patient if he has health insurance and he said he does not. SW asked patient if he has applied for Medicaid. Patient said he was told he was approved for assistance. Patient could not elaborate on this anymore. SW asked if it was okay if SW called his mom. Patient said, I don't know why. SW then said SW can try and contact [facility] to see if SW can find out more. Patient was okay with this. DIAN contacted [facility] via e-mail inquiring about patient. Await response. Heike BONE
--- NOTE | 2022-09-01 11:45 | CASEMGMT ---
NEGIN DUDLEY assessment: Face to Face with patient for initial transition planning/care coordination assessment. RN OCTAVIA introduced self and role at [facility], pt voices understanding and consents to assessment. Pt is lying in bed in no distress on room air. Pt with left sided neglect and will not look at this RN CM, if on his left side. NIH 13 currently. Pt with garbled speech and is able to answer most questions appropriately.? Care providers, pharmacy,?and demographics verified. ? Presentation: Pt found on floor by parents, unable to move left arm/leg Admitting dx: CVA, NSTEMI PCP: None Specialists: DONELL Anguiano-recently dx'd with large esophageal tumor and referred to oncology-per Dr. Plata office, they have been trying to get pt to establish with PCP Preferred Pharmacy: [facility] Insurance: Self pay Prescription Benefit:? Self pay Living Will/HPOA: Pt does not have LW/HPOA and declines AD info. LNOK: Liliana Gunn, mother Living Arrangements: Pt lives alone in apartment with stairs and states normally able to care for self without difficulty. Transportation: Pt states normally drives self and states no transportation concerns. DME/HHC: Pt states no hx of DME or need for DME. Pt states no hx of HHC or SNF. Pt states no concerns with going home at time of discharge but unsure that pt is aware of effects from CVA, which was positive on MRI. 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 Pt states normally smokes 1/2 pack cigarettes daily and does not drink ETOH. Pt voices no further concerns/needs. CM to follow for therapy evals and any further discharge planning/needs. Advised pt to ask for CM if any further questions/concerns/needs arise, voices understanding. Pt Goal: Home ? Plan: TBD, pending therapy evals. [place] NEGIN DUDLEY
[2022-09-01] MEDS: Aspirin 300 MG Suppository RC (13:02)
--- NOTE | 2022-09-01 13:07 | CASEMGMT ---
SW completed a PHQ 9 with patient as he had a Stroke. Patient scored a 2 which indicates minimal depression. Heike Muñoz MSW LIZANDRO
--- NOTE | 2022-09-01 15:37 | CASEMGMT ---
Per therapy, pt would be good candidate for IP rehab unit. Anyi BIGGS aware, voices understanding. Mushtaq KMA CM
--- NOTE | 2022-09-01 16:57 | CHAPLAIN ---
Type of Pastoral Visit _x__ Initial Visit ___ Follow-up Visit ___ On-call Visit ___ General Patient Visit ___ Spiritual Assessment ___ Family Conference ___ Bereavement ___ Rapid Response ___ Code Blue ___ Other (describe below) Pastoral Care Referral From _x__ Patient ___ Family ___ Nurse ___ Physician ___ Dry Dip Worker ___ Power Wood Sawyer ___ Other (describe below) Sacrament/Intervention ___ Active listening ___ Anointing ___ Holiness ___ Bereavement ___ Communion ___ Laura exploration ___ ___ Life review _x__ Prayer ___ Reconciliation ___ Sacrament of Sick _x__ Supportive presence ___ Wedding ___ Other (describe below) Pastoral Comments patient opens eyes when addressed by name; pt nods head in answer to questions but appears to go back to sleep quickly during visit; pt offered support; pt agreed to prayer; brief visit so pt could sleep
--- NOTE | 2022-09-01 18:06 | PCM.PN.HOSP ---
Subjective Subjective Patient was seen and examined today, his MRI showed a subacute cortical-based ischemic infarction involving the right temporal lobe, right insular lobe, and the lenticulostriate branches of the right M1 segment. Patient has extreme weakness over his left upper and lower extremities, he was able to stand and pivot with maximal assistance today. I attempted to contact his mother who is his contact lens inspector, it went to voicemail- I did not leave a message. Objective Data Objective Data Vital Signs: Vital Signs Temp Pulse Resp BP Pulse Ox O2 Del Method 98.6 F 123 H 18 128/86 H 100 Room Air 09/01/22 16:00 09/01/22 16:00 09/01/22 16:00 09/01/22 16:00 09/01/22 16:00 09/01/22 16:00 Oxygen Delivery Method Room Air Weight: 56.6 kg Body Mass Index (BMI) 21.3 Intake & Output: Intake and Output for Last 24 Hours 08/30/22 08/31/22 09/01/22 23:59 23:59 23:59 Intake Total 1000 / 1000 Balance 1000 / 1000 Lab / Micro Data Result Diagrams: 09/01/22 04:32 09/01/22 04:32 Labs: Laboratory Results - last 24 hr 08/31/22 20:26: Troponin I High Sens 1104 H* 09/01/22 04:32: WBC 9.5, RBC 2.73 L, Hgb 7.3 L, Hct 24.5 L, MCV 89.7, MCH 26.7 L, MCHC 29.8 L, RDW Std Deviation 49.8 H, RDW Coeff of [place] 15.2 H, Plt Count 373, MPV 10.4, Immature Gran % (Auto) 0.600, Neut % (Auto) 79.2 H, Lymph % (Auto) 11.9 L, [place] % (Auto) 7.6, Eos % (Auto) 0.1, Baso % (Auto) 0.6, Absolute Neuts (auto) 7.5, Absolute Lymphs (auto) 1.13, Nucleated RBC % 0 09/01/22 04:32: Sodium 141, Potassium 4.0, Chloride 109 H, Carbon Dioxide 24.0, Anion Gap 8, BUN 50 H, Creatinine 0.90, Estim Creat Clear Calc 78.61, Est GFR (MDRD) Af Amer 114, Est GFR (MDRD) Non-Af 94, BUN/Creatinine Ratio 55.3 H, Glucose 100, Calcium 8.4 L, Triglycerides 154, Cholesterol 179, LDL Cholesterol 113, VLDL Cholesterol 31, HDL Cholesterol 35 L Micro: Microbiology 08/31/22 12:56 Urine, Random Urine Culture - Preliminary Streptococcus agalactiae (B) Radiography Diagnostic Testing: Radiology Impression Echocardiogram 08/31/22 19:37 Interpretation Summary Normal LV size. Left ventricular systolic function is normal. The estimated ejection fraction is 60 %. Localized effusion. There are no echocardiographic indications of cardiac tamponade. Contrast injection was performed. Ordering Physician: Mitchel Lucero Referring Physician: JANELLE PCP Performed By: Ana Mishra RCS Brain MRI 09/01/22 06:43 IMPRESSION: 1. Subacute cortical based ischemic infarction involving the right temporal lobe, right insular lobe and the lenticulostriate branches of the right M1 segment. 2. No significant interval change when compared to CTA head of 08/31/2022. Electronically Signed: Tevin Cooney MD at 11:15 EST , Physical Exam Const alert and no apparent distress Constitutional Narrative: Patient response to simple questions slowly but appropriately General Appearance: cooperative, well kempt and well developed Orientation / Consciousness: awake HEENT normocephalic, head/scalp atraumatic and moist oral mucous membranes Eyes PERRL, EOMs intact bilaterally and conjunctivae normal Neck supple, no JVD, thyroid normal and no carotid bruits General: trachea midline Resp normal respiratory effort, no retractions, no use of accessory muscles and clear to auscultation bilaterally Auscultation: Negative for rales, rhonchi or wheezes Cardio regular rate, regular rhythm, S1 normal heart sound, S2 normal heart sound, no murmurs, no rub and no gallops GI normal to inspection, nondistended, normoactive bowel sounds, soft to palpation, non-tender and non-distended Extremity normal to inspection and no clubbing, cyanosis or edema Skin no rashes or lesions noted General Skin Exam: no breakdown Neuro Neuro Narrative: Patient has severe weakness in his left upper and lower extremity, he was not able to move his arm for this examiner on his left side. When asked the patient to flex his left foot, he moved his right foot. Sensorium / Orientation: awake and alert Psych Psych Narrative: Patient's speech is slow, he is able to answer simple questions appropriately Assessment & Plan Assessment/Plan (1) Acute right MCA stroke: PLAN: Plan 1. Acute right MCA stroke-patient will remain on aspirin, patient did not pass a swallowing eval today and will have a cookie swallow done tomorrow, he is currently not on Plavix. #2 [id number] has deferred any further testing other than an echocardiogram at this time, patient's echocardiogram showed an EF of 60% #3 recently diagnosed esophageal cancer-patient will need further follow-up for this, this was recently diagnosed #4 dehydration-patient will be maintained on IV fluids Charges/Coding Visit Charges Inpatient E&M: 39443 Subs Hosp L2
[2022-09-02] VITALS (13 sets, daily range): BP systolic 103–136; BP diastolic 67–95; PULSE 100–117; RESP 13–18; TEMP 36.6–37.1; O2SAT 95–100; BMI 21.3
[2022-09-02] MEDS: 0.9% Normal Saline 1,000 ML 125 ML IV ×3 (04:23→22:14)
--- NOTE | 2022-09-02 06:29 | PN.CARD_ITS ---
Subjective Subjective Patient seen and evaluated. Sleeping. Does not appear to move left side of body well. Objective Data Vital Signs: Vital Signs Temp Pulse Resp BP Pulse Ox O2 Del Method 98.4 F 107 H 18 124/92 H 100 Room Air 09/02/22 04:00 09/02/22 04:00 09/02/22 04:00 09/02/22 04:00 09/02/22 04:00 09/02/22 04:00 Oxygen Delivery Method Room Air Weight: 124 lb 12.506 oz Body Mass Index (BMI) 21.3 Intake & Output: Intake and Output for Last 24 Hours 08/31/22 09/01/22 09/02/22 23:59 23:59 23:59 Intake Total 1000 / 1000 2900.00 / 2900.00 1000 / 1000 Balance 1000 / 1000 2900.00 / 2900.00 1000 / 1000 Lab / Micro Data Result Diagrams: 09/01/22 04:32 09/01/22 04:32 Micro: Microbiology 08/31/22 12:56 Urine, Random Urine Culture - Preliminary Streptococcus agalactiae (B) Cardiology Labs/Tests Rhythm: EKG: ECHO: Stress Test: Cardiac Cath: PCI: CT Surgery: Holter monitor: EPS: PPM: CXR: Chest CT Scan: Radiography Diagnostic Testing: Radiology Impression Echocardiogram 08/31/22 19:37 Interpretation Summary Normal LV size. Left ventricular systolic function is normal. The estimated ejection fraction is 60 %. Localized effusion. There are no echocardiographic indications of cardiac tamponade. Contrast injection was performed. Ordering Physician: Mitchel Lucero Referring Physician: JANELLE PCP Performed By: Ana Mishra RCS Brain MRI 09/01/22 06:43 IMPRESSION: 1. Subacute cortical based ischemic infarction involving the right temporal lobe, right insular lobe and the lenticulostriate branches of the right M1 segment. 2. No significant interval change when compared to CTA head of 08/31/2022. Electronically Signed: Tevin Cooney MD at 11:15 EST , Physical Exam Const alert and no apparent distress Constitutional Narrative: Patient response to simple questions slowly but appropriately General Appearance: cooperative, well kempt and well developed Orientation / Consciousness: awake HEENT normocephalic, head/scalp atraumatic and moist oral mucous membranes Eyes PERRL, EOMs intact bilaterally and conjunctivae normal Neck supple, no JVD, thyroid normal and no carotid bruits General: trachea midline Resp normal respiratory effort, no retractions, no use of accessory muscles and clear to auscultation bilaterally Auscultation: Negative for rales, rhonchi or wheezes Cardio regular rate, regular rhythm, S1 normal heart sound, S2 normal heart sound, no murmurs, no rub and no gallops GI normal to inspection, nondistended, normoactive bowel sounds, soft to palpation, non-tender and non-distended Extremity normal to inspection and no clubbing, cyanosis or edema Skin no rashes or lesions noted General Skin Exam: no breakdown Neuro Neuro Narrative: Patient has severe weakness in his left upper and lower extremity, he was not able to move his arm for this examiner on his left side. When asked the patient to flex his left foot, he moved his right foot. Sensorium / Orientation: awake Psych Psych Narrative: Patient's speech is slow, he is able to answer simple questions appropriately Assessment & Plan Assessment/Plan (1) Non-ST elevation (NSTEMI) myocardial infarction: PLAN: Patient presents with an acute cerebrovascular accident and is noted to have elevated cardiac enzymes. His echocardiogram demonstrated preserved left v entricular ejection fraction with no wall motion abnormalities present. My recommendation at this time will be to continue with expectant management. I am concerned about his anemia as well as his elevated BUN that this may be suggesting an occult GI bleed. Would not use any antiplatelet agents at this time. Would defer to the hospitalist at this time. Thank you for allowing me to participate in the care of your patient. Please don't hesitate to call if any issues arise.
--- NOTE | 2022-09-02 11:06 | CASEMGMT ---
SW received an e-mail from [employer] and they have no applications on record for patient. This DIAN and DIAN Fish went to patient's room. SW let patient know [facility] does not have anything on file for him. SW explained that therapy is recommending he go somewhere at discharge for rehab. SW asked patient if he could help SW complete a Medicaid application. Patient was able to answer SW's questions for Medicaid application. Patient has $10,000 in his checking and $4,000 in his savings. Patient gets $500 a week from his job. Patient will likely need to spend down his money before he would qualify for Medicaid. SW asked patient if he would be able to pay for a stay at a intermediate. Patient thought he could. SW asked patient if his family is involved and he shook his head no. SW asked if his family would be willing to help him by bringing in clothes and his checkbook. Patient thought they would help. SW asked if it would be okay if DIAN called his mom and patient was okay with this. Heike Muñoz SMALL BUSINESS DIRECTOR LIZANDRO
--- NOTE | 2022-09-02 11:18 | ST.MBS ---
Modified Barium Swallow - Patient Information Study Date: 09/02/22 Study Time: 10:00 Direct Billable Minutes: 120 Total Minutes procedure & reportin Diagnosis: Right MCA CVA (I63.511), Esophageal cancer (Z85.01) Referring Physician: Gene Macias Reason for Referral: Objectively assess swallow function, risk for aspiration, and determine recommendations for least restrictive diet textures and compensatory strategies to improve safety of swallow. Medical History: Artemio Roland is a 52-year-old male with PMH including esophageal cancer (SEE EMR for full PMH) who presented to [facility] ED 08/31/2022 after being found down by family. Patient had not been seen nor contacted by family in about a week and a half. Pt was a poor historian. [facility] neurology was contacted as the patient was found to have a right MCA stroke. He was admitted for further management of CVA. He failed RN dysphagia screen and was made strict NPO prior to ST consult. Per RN the patient was consuming only clear liquids at home. Per pt, he had only been diagnosed with esophageal cancer for ~2 weeks, so he has not yet received any treatment. During BSE, the patient was recommended NPO - ok for meds in applesauce. Plan for MBSS to objectively assess risk for aspiration and concerns for esophageal retention prior to diet advancement. Current Diet Ordered: NPO with meds crushed in applesauce Dentition: Missing Teeth Mental Status: WNL Respiratory Status: Oxygenating on Room Air - Penetration-Aspiration Scale Penetration-Aspiration Scale: OBJECTIVE ASSESSMENT OF SWALLOW FUNCTION (QUANTITATIVE ? PER TRIAL): PENETRATION / ASPIRATION SCALE (COREA): 1 = does not enter airway 2 = enters airway/above vocal folds/ejected 3 = enters airway/above vocal folds/not ejected 4 = enters airway/contacts vocal folds/ejected 5 = enters airway/contacts vocal folds/not ejected 6 = enters airway/below vocal folds/ejected 7 = enters airway/below vocal folds/not ejected despite effort 8 = enters airway/below vocal folds/no effort VIDEOFLOROSCOPIC SCALE SCORE (COREA): Grade I = aspiration of material that has penetrated into the laryngeal vestibule, intact cough reflex Grade II = aspiration < 10 % of the bolus, intact cough reflex Grade III = aspiration of < 10 % of the bolus, reduced cough reflex or aspiration of > 10 % of the bolus, intact cough reflex Grade IV = aspiration of > 10 % of the bolus, reduced cough reflex - Penetration-Aspiration Scale Score Thin Liquid via teaspoon Result: 7= enters airways/below vocal folds/not ejected despite effort Thin Liquid via teaspoon Effortful swallow Result: 7= enters airways/below vocal folds/not ejected despite effort [place] thick liquid via 1/2 teaspoon Result: 2= enter airway/above vocal folds/ejected [place] Thick Liquid via teaspoon Result: 2= enter airway/above vocal folds/ejected Thin Liquid via small single sip from cup Result: 3= enters airways/above vocal folds/not ejected [place] Thick Liquid via large single sip from cup - cued cough and re-swallow after the swallow Result: 8= enters airway/below vocal folds/no effort Honey Thick Liquid via teaspoon Result: 2= enter airway/above vocal folds/ejected Pudding via teaspoon with esophageal screen Result: 2= enter airway/above vocal folds/ejected Comment: INSTRUCTIONAL SERVICES SPECIALIST requested radiologist, Dr. Nur, review this image. It appears that food contents consumed earlier remain in his lower esophagus suspended in the barium pudding; however, per RNKia, the patient has had no oral medications or applesauce today. [place] Thick Liquid via teaspoon with esophageal screen Result: 2= enter airway/above vocal folds/ejected Thin liquid via 1/2 teaspoon Result: 2= enter airway/above vocal folds/ejected Thin Liquid via teaspoon Chin tuck Result: 2= enter airway/above vocal folds/ejected Thin Liquid via teaspoon Chin tuck Trial 2 Result: 2= enter airway/above vocal folds/ejected 1/4 Cookie Result: 1= does not enter airway - Oral Phase Labial Seal: No Labial Escape Tongue Control During Bolus Hold: Posterior escape of greater than half of bolus Bolus Preparation/Mastication: Slow prolonged chewing/mashing with complete recollection Bolus Transport/Lingual Motion: Repetitive/disorganized tongue motion Oral Residue: Trace residue lining oral structures - Pharyngeal Phase Initiation of Pharyngeal Swallow: Bolus head in pyriforms Soft Palate Elevation: No bolus between soft palate and pharyngeal wall Laryngeal Elevation: Partial superior movement thyroid cart/partial apprx aryt-epig petiole Anterior Hyoid Excursion: Partial anterior movement Epiglottic Movement: Partial inversion Laryngeal Vestibule Closure at Height of Swallow: Incomplete; narrow column of air/contrast in laryngeal vestibule Pharyngeal Stripping Wave: Present - diminished Pharyngoesophageal Segment Opening: Parital distension and partial duration; parital obstruction of flow Tongue Base Retraction: Wide column of contrast between tongue base & post. pharyngeal wall Pharyngeal Residue: Collection of residue within or on pharyngeal structures - Esophageal Phase Esophageal Clearance: Esophageal retention w/ retrograde flow below pharyngoesophageal seg. - Diagnosis/Impression Diagnosis: Moderate-severe pharyngoesophageal dysphagia (R13.14) Impression: The oral phase is primarily marked by... -Decreased bolus control with premature posterior loss of the majority of liquids boluses to the pyriforms prior to swallow onset. This posterior loss greatly contributed to aspiration during the swallow, which spilled from the pyriforms for thin by tsp and nectar thick by large cup sip. -Delayed and repetitive tongue motion for A-P transport -Prolonged, but adequate mastication of 1/4 cookie. The pharyngeal phase is primarily marked by... -Decreased airway closure during the swallow due to decreased anterior hyoid excursion, partial epiglottic inversion, and decreased laryngeal elevation. -Moderately decreased tongue base retraction, mildly decreased UES opening/duration, and mildly decreased pharyngeal stripping wave with resulting mild pharyngeal residues after the swallow. -Aspiration of thin liquids by tsp and SILENT aspiration of large sip of nectar thick liquids via cup. Consistent laryngeal penetration across thin by tsp with chin tuck, nectar thick by tsp, and honey thick by tsp, which did reliably eject from the laryngeal vestibule after the swallow. Use of chin tuck was effective in decreasing aspiration during the swallow with thin liquid by tsp. Use of cough and re-swallow was somewhat effective in decreasing nectar thick residues remaining in the laryngeal vestibule after the swallow. The esophageal phase is primarily marked by... -Esophageal retention of pudding in lower esophagus with retrograde flow remaining below UES. This esophageal retention had minimally improved clearance when provided nectar thick liquid wash. -INSTRUCTIONAL SERVICES SPECIALIST requested radiologist, Dr. Nur, review esophageal screen of pudding. It appeared that food contents consumed earlier remained in his lower esophagus suspended in the barium pudding; however, per RN, Kia, the patient has had no oral medications or applesauce today. Will recommend GI consult. Would consider the patient for alternative means of nutrition and hydration due to poor esophageal clearance and strict aspiration precautions recommending nectar thick liquids by tsp only. - Recommendations Diet: [place]-thick Liquids - Full liquid diet only due to concerns for poor esophageal clearance Compensatory Strategies: Liquid by Teaspoon Only, Slow Rate, Sitting upright, Remain sitting upright for 30 minutes after PO intake Supervision: 1:1 Close Supervision Recommend Repeat Modified Barium Swallow: Yes Need for Skilled Speech Therapy Services: Yes Comment: Will recommend the patient for intensive dysphagia therapy to address moderate-severe deficits in pharyngoesophageal swallow function. Will recommend the patient for oropharyngeal strengthening to improve lingual control, laryngeal elevation, hyoid excursion, tongue base retraction, and pharyngeal contraction. The patient would benefit from thorough education regarding diet recommendations and recommended compensatory strategies. Will recommend trials of thin liquid by tsp with use of chin tuck with INSTRUCTIONAL SERVICES SPECIALIST to consider the patient for diet advancement in upcoming sessions. Okay to complete solid trials with INSTRUCTIONAL SERVICES SPECIALIST to consider further diet advancement once the patient is cleared by GI for solid intake. Recommended Referrals: GI Consult - Significant esophageal retention. INSTRUCTIONAL SERVICES SPECIALIST suspects the patient had food residuals suspended in barium pudding in lower esophagus. Would strongly consider alternative means of nutrition/hydration to supplement full nectar thick liquid diet. Education Completed: 1. Described result of evaluation., 2. Pt understands evaluation & agrees with goals and treatment plan., 7. Pt requires further education on strategies & risks. - Status Active ST Patient: Active - Contact Information [facility] Speech Therapy:: Andria Barajas M.A. [facility]-INSTRUCTIONAL SERVICES SPECIALIST Speech-Language Pathologist [facility] [address] [place] [address] [email or web address] [phone] 09/02/22 11:41
[2022-09-02] MEDS: Pantoprazole Sodium 40 MG Tablet PO (14:02)
[2022-09-02] MEDS: Aspirin 81 MG TAB.CHEW PO (14:02)
--- NOTE | 2022-09-02 16:51 | PN.HOSP_ITS ---
Subjective Subjective Patient was seen and examined today, I talked with Dr. Lomax about his care, Dr. Lomax states that he will have to be staged before he can undergo any treatment for his esophageal cancer. I cannot order a CAT scan of his chest abdomen pelvis at this time due to the fact he had a barium swallow today and there is b arium in his system. I talked to the patient's mother about his care. Objective Data Objective Data Vital Signs: Vital Signs Temp Pulse Resp BP Pulse Ox O2 Del Method 98.1 F 102 H 13 114/67 100 Room Air 09/02/22 15:35 09/02/22 15:39 09/02/22 15:35 09/02/22 15:35 09/02/22 15:35 09/02/22 15:35 Oxygen Delivery Method Room Air Weight: 56.6 kg Body Mass Index (BMI) 21.3 Intake & Output: Intake and Output for Last 24 Hours 08/31/22 09/01/22 09/02/22 23:59 23:59 23:59 Intake Total 1000 / 1000 2900.00 / 2900.00 1999 Balance 1000 / 1000 2900.00 / 2900.00 1999 Medical Nutrition Assessment Dietitian: Malnutrition Criteria Met Start: 09/02/22 14:49 Freq: Status: Active Protocol: Document 09/02/22 14:49 ARACELI (Rec: 09/02/22 14:49 ARACELI [id number]) Nutrition Malnutrition Evidence of Malnutrition Exists Yes Malnutrition (severe): Chronic Evidenced By Suboptimal Energy Intake ( Severe),Weight Loss (Severe), Physical Changes (Moderate) Intake Problem Inadequate Oral Intake Etiology related to esophageal cancer Signs/Symptoms as evidenced by patient report of Clear Liquid diet prior to admission and suboptimal appetite. Status Active Problem Clinical Problem Chronic Disease or Condition Related Malnutrition Etiology related to esophageal cancer Signs/Symptoms as evidenced by 20.2lbs (13.9% ) weight loss in 2-3 months, < 75% intake of estimated energy needs for >1 month and moderate fat and muscle loss to temporal and orbital regions. Status Active Problem Unintended Weight Loss Etiology related to predicted inadequate oral intake and esophageal cancer Signs/Symptoms as evidenced by 9.9lbs (7.3%) weight loss in 12 days. Status Inactive Problem Recommendation Dietitian Recommendations/Changes Continue Full Liquid diet with consistency per ST to manage swallowing difficulties. RD will order Ensure Plus High Protein TID with meals - thickened to mildly thick consistency Lab / Micro Data Result Diagrams: 09/01/22 04:32 09/01/22 04:32 Micro: Microbiology 08/31/22 12:56 Urine, Random Urine Culture - Final Streptococcus agalactiae (B) Physical Exam Narrative alert and no apparent distress Constitutional Narrative: Patient response to simple questions slowly but appropriately General Appearance: cooperative, well kempt and well developed Orientation / Consciousness: awake HEENT normocephalic, head/scalp atraumatic and moist oral mucous membranes Eyes PERRL, EOMs intact bilaterally and conjunctivae normal Neck supple, no JVD, thyroid normal and no carotid bruits General: trachea midline Resp normal respiratory effort, no retractions, no use of accessory muscles and clear to auscultation bilaterally Auscultation: Negative for rales, rhonchi or wheezes Cardio regular rate, regular rhythm, S1 normal heart sound, S2 normal heart sound, no murmurs, no rub and no gallops GI normal to inspection, nondistended, normoactive bowel sounds, soft to palpation, non-tender and non-distended Extremity normal to inspection and no clubbing, cyanosis or edema Skin no rashes or lesions noted General Skin Exam: no breakdown Neuro Neuro Narrative: Patient has severe weakness in his left upper and lower extremity, he was not able to move his arm for this examiner on his left side.? Sensorium / Orientation: awake and alert Psych Psych Narrative: Patient's speech is slow, he is able to answer simple questions appropriately Assessment & Plan Assessment/Plan (1) Acute right MCA stroke: PLAN: Plan 1. Acute right MCA stroke-patient will remain on aspirin, patient had a swallowing eval today, he is safe for oral intake as modified by speech therapy. Patient had delayed transit of food in the distal esophagus-this is probably due to his esophageal tumor. #2 [id number] has deferred any further testing other than an echocardiogram at this time, patient's echocardiogram showed an EF of 60% #3 recently diagnosed esophageal cancer, I talked to the patient's GI doctor, his EGD was performed on August 21, 2022, tissue samples revealed adeno CA, patient is due to follow-up with Dr. Lomax next week, I discussed this with the patient's mother by phone #4 dehydration-patient will be maintained on IV fluids, BMP will be repeated tomorrow Charges/Coding Visit Charges Inpatient E&M: 61816 Subs Hosp L2
[2022-09-02] MEDS: Acetaminophen 325 MG Tablet 650 MG PO (23:49)
[2022-09-03] VITALS (22 sets, daily range): BP systolic 104–135; BP diastolic 65–81; PULSE 107–141; RESP 15–35; TEMP 36.2–38.2; O2SAT 90–100; BMI 21.3
--- NOTE | 2022-09-03 05:01 | RAD_ITS ---
EXAM: XR CHEST, 1 VIEW CLINICAL INDICATION: cough TECHNIQUE: Frontal view of the chest. This report was created using CS-Keys report generation technology. COMPARISON: None. FINDINGS: LUNGS AND PLEURAL SPACES: Mild patchy airspace disease in the right lower lobe. No pneumothorax. No effusion. HEART: Unremarkable. Cardiac silhouette not enlarged. MEDIASTINUM: Central airways and mediastinal contour are unremarkable. BONES/JOINTS: Unremarkable. SOFT TISSUES: Unremarkable. RAD/Chest 1 View (Portable) IMPRESSION: Mild patchy airspace disease in the right lower lobe. Findings may indicate atelectasis or infection. Electronically Signed: Shankar Vázquez MD at 6:38 EST ,
[2022-09-03] MEDS: Acetaminophen 325 MG Tablet 650 MG PO (06:19)
[2022-09-03] MEDS: 0.9% Normal Saline 1,000 ML 125 ML IV ×2 (06:20→14:06)
--- NOTE | 2022-09-03 08:04 | PCM.PN.CARD ---
Subjective Subjective Patient seen and evaluated. Still has left-sided neglect. Objective Data Vital Signs: Vital Signs Temp Pulse Resp BP Pulse Ox O2 Del Method 100.3 F H 118 H 28 H 106/71 94 Room Air 09/03/22 06:00 09/03/22 07:30 09/03/22 06:00 09/03/22 06:00 09/03/22 06:00 09/03/22 06:00 Oxygen Delivery Method Room Air Weight: 124 lb 12.506 oz Body Mass Index (BMI) 21.3 Intake & Output: Intake and Output for Last 24 Hours 09/01/22 09/02/22 09/03/22 23:59 23:59 23:59 Intake Total 2900.00 / 2900.00 3120 / 3120 1000 / 1000 Output Total 250 / 250 Balance 2900.00 / 2900.00 3120 / 3120 750 / 750 Lab / Micro Data Result Diagrams: 09/01/22 04:32 09/01/22 04:32 Micro: Microbiology 08/31/22 12:56 Urine, Random Urine Culture - Final Streptococcus agalactiae (B) Cardiology Labs/Tests Rhythm: EKG: ECHO: Stress Test: Cardiac Cath: PCI: CT Surgery: Holter monitor: EPS: PPM: CXR: Chest CT Scan: Radiography Diagnostic Testing: Radiology Impression Chest X-Ray 09/03/22 05:01 IMPRESSION: Mild patchy airspace disease in the right lower lobe. Findings may indicate atelectasis or infection. Electronically Signed: Shankar Vázquez MD at 6:38 EST , Physical Exam Const alert and no apparent distress Constitutional Narrative: Patient response to simple questions slowly but appropriately Orientation / Consciousness: awake HEENT normocephalic, head/scalp atraumatic and moist oral mucous membranes Eyes PERRL, EOMs intact bilaterally and conjunctivae normal Neck supple, no JVD, thyroid normal and no carotid bruits General: trachea midline Resp normal respiratory effort, no retractions, no use of accessory muscles and clear to auscultation bilaterally Auscultation: Negative for rales, rhonchi or wheezes Cardio regular rate, regular rhythm, S1 normal heart sound, S2 normal heart sound, no murmurs, no rub and no gallops GI normal to inspection, nondistended, normoactive bowel sounds, soft to palpation, non-tender and non-distended Extremity normal to inspection and no clubbing, cyanosis or edema Skin no rashes or lesions noted General Skin Exam: no breakdown Neuro Neuro Narrative: Patient has severe weakness in his left upper and lower extremity, he was not able to move his arm for this examiner on his left side. When asked the patient to flex his left foot, he moved his right foot. Sensorium / Orientation: awake Psych Psych Narrative: Patient's speech is slow, he is able to answer simple questions appropriately Assessment & Plan Assessment/Plan (1) Non-ST elevation (NSTEMI) myocardial infarction: PLAN: Patient presents with an acute cerebrovascular accident and is noted to have elevated cardiac enzymes. His echocardiogram demonstrated preserved left ventricular ejection fraction with no wall motion abnormalities present. My recommendation at this time will be to continue with expectant management. I am concerned about his anemia as well as his elevated BUN that this may be suggesting an occult GI bleed. Would not use any antiplatelet agents at this time. Would defer to the hospitalist at this time. Thank you for allowing me to participate in the care of your patient. Please don't hesitate to call if any issues arise.
[2022-09-03 08:05] LABS: Absolute Lymphocyte Count 0.74 X10^3/uL (0.83-4.51); Absolute Neutrophil Count 10.2 X10^3/uL (2.0-7.7); Basophil# 0.02 X10^3/uL; Basophil% 0.2 % (0-1); Eosinophil# 0.01 X10^3/uL; Eosinophils% 0.1 % (0-5); Hematocrit 18.3 % (40-54); Lymphocyte # 0.74 X10^3/ul (0.83-4.51); Lymphocyte % 6.5 % (19-41); Mean Corp Hgb Conc 29.5 g/dL (32-36); Mean Corpuscular Hgb 27.4 pg (27.0-32.0); Mean Corpuscular Volume 92.9 fL (80-94); Mean Platelet Vol. 9.6 fl (6.2-12.0); Monocyte% 3.5 % (0-10); NRBC Flagged by Analyzer 0 % (0-5); Neutrophil # 10.23 X10^3/uL (2.7-7.7); Neutrophil % 89.4 % (47-70); POSITIVE COUNT YES; Platelet Count 247 K/mm3 (150-450); RBC Distribution Width CV 15.4 % (11.6-14.6); RBC Distribution Width SD 51.7 fl (35.1-43.9); Red Blood Count 1.97 M/mm3 (4.6-6.2); White Blood Count 11.4 K/mm3 (4.4-11.0)
[2022-09-03 08:10] LABS: Differential Indicated SCAN CRITERIA MET; Hemoglobin 5.4 g/dL (13.0-16.5)
[2022-09-03 08:48] LABS: BNP,B-Type NATRIURETIC PEPTIDE 183.1 pg/mL (0-100)
[2022-09-03 08:56] LABS: Differential Comment SCANNED
[2022-09-03 08:57] LABS: Anisocytosis 2+; Hypochromasia 1+; Macrocytosis 1+; Microcytosis 1+
[2022-09-03 09:27] LABS: Anion Gap 8 (5-15); BUN 33 mg/dL (7-18); BUN/Creat Ratio 40.9 RATIO (10-20); Calcium,Total 8.1 mg/dL (8.5-10.1); Chloride 121 mmol/L (98-107); Creatinine, Serum 0.81 mg/dL (0.70-1.30); EST Glomerular Filtration Rate 108 mL/min (>60); Est Glom Filt Rate - Afr Amer 130 mL/min (>60); Estimated Creatinine Clearance 87.35 ml/min; Glucose 125 mg/dL (74-106); Potassium 3.5 mmol/L (3.5-5.1); Sodium Level 150 mmol/L (136-145)
[2022-09-03] MEDS: Pantoprazole Sodium 40 MG Tablet PO (09:40)
[2022-09-03] MEDS: Lactulose 20 GM/30 ML UDC 30 GM PO ×2 (12:04→14:13)
[2022-09-03 12:24] LABS: Pathologist Review Reviewed
--- NOTE | 2022-09-03 13:31 | CASEMGMT ---
SW had patient sign the Medicaid application and the authorized farm loan representative forms. SW called patient's mom Liliana. DIAN introduced self and role at [facility]. DIAN explained SW is helping patient apply for Medicaid and he will need someone to assist with this. DIAN asked if she would be willing to work with [employer] to help with Medicaid rosie. Liliana was willing to do this. Liliana did come to [facility] to sign the paper. DIAN faxed the Medicaid application to [employer]. Heike BONE
--- NOTE | 2022-09-03 14:26 | CASEMGMT ---
Discharge Manager Ambulatory This com writer sent referral to [facility], [facility] and [place] via [facility]. Valerie RINCON Information Services Assistant
--- NOTE | 2022-09-03 16:46 | PCM.PN.HOSP ---
Subjective Subjective Patient was seen and examined today, he appears alert, his affect is somewhat bizarre, I talked to him briefly about insertion of the PEG tube to help his nutrition, patient was not against this, I also talked with his mother about the procedure and she confirmed that as long as he wants everything done that it should be placed. Mother had some doubts about whether would be da silva to proceed with further treatment for his esophageal cancer but she stated that it was up to the patient to decide ultimately what he would want done. I told her I would try to talk with oncology about it and overall prognosis for his condition, with his severe stroke, I think the patient would have a difficult time with any treatment for his esophageal cancer. I contacted gastroenterology concerning insertion of a PEG tube tomorrow for the patient, I talked with speech therapy briefly today, they stated that the patient should remain on a full liquid diet with nectar thickened liquids. Objective Data Objective Data Vital Signs: Vital Signs Temp Pulse Resp BP Pulse Ox O2 Del Method 98.4 F 117 H 17 135/80 H 90 Room Air 09/03/22 12:45 09/03/22 12:45 09/03/22 12:45 09/03/22 12:45 09/03/22 12:45 09/03/22 14:10 Oxygen Delivery Method Room Air Weight: 56.6 kg Body Mass Index (BMI) 21.3 Intake & Output: Intake and Output for Last 24 Hours 09/01/22 09/02/22 09/03/22 23:59 23:59 23:59 Intake Total 2900.00 / 2900.00 3120 / 3120 2069.83 / 2069.83 Output Total 625 / 625 Balance 2900.00 / 2900.00 3120 / 3120 1444.83 / 1444.83 Medical Nutrition Assessment Dietitian: Malnutrition Criteria Met Start: 09/02/22 14:49 Freq: Status: Active Protocol: Document 09/02/22 14:49 ARACELI (Rec: 09/02/22 14:49 ARACELI [id number]) Nutrition Malnutrition Evidence of Malnutrition Exists Yes Malnutrition (severe): Chronic Evidenced By Suboptimal Energy Intake ( Severe),Weight Loss (Severe), Physical Changes (Moderate) Intake Problem Inadequate Oral Intake Etiology related to esophageal cancer Signs/Symptoms as evidenced by patient report of Clear Liquid diet prior to admission and suboptimal appetite. Status Active Problem Clinical Problem Chronic Disease or Condition Related Malnutrition Etiology related to esophageal cancer Signs/Symptoms as evidenced by 20.2lbs (13.9% ) weight loss in 2-3 months, < 75% intake of estimated energy needs for >1 month and moderate fat and muscle loss to temporal and orbital regions. Status Active Problem Unintended Weight Loss Etiology related to predicted inadequate oral intake and esophageal cancer Signs/Symptoms as evidenced by 9.9lbs (7.3%) weight loss in 12 days. Status Inactive Problem Recommendation Dietitian Recommendations/Changes Continue Full Liquid diet with consistency per ST to manage swallowing difficulties. RD will order Ensure Plus High Protein TID with meals - thickened to mildly thick consistency Lab / Micro Data Result Diagrams: 09/03/22 07:58 09/03/22 07:58 Labs: Laboratory Results - last 24 hr 09/03/22 07:58: WBC 11.4 H, RBC 1.97 L, Hgb 5.4 L*, Hct 18.3 L, MCV 92.9, MCH 27.4, MCHC 29.5 L, RDW Std Deviation 51.7 H, RDW Coeff of Lexus 15.4 H, Plt Count 247, MPV 9.6, Immature Gran % (Auto) 0.300, Neut % (Auto) 89.4 H, Lymph % (Auto) 6.5 L, Collin % (Auto) 3.5, Eos % (Auto) 0.1, Baso % (Auto) 0.2, Absolute Neuts (auto) 10.2 H, Absolute Lymphs (auto) 0.74 L, Nucleated RBC % 0, Differential Comment SCANNED, Diff Path Review Reviewed, Hypochromasia 1+, Anisocytosis 2+, Microcytosis 1+, Macrocytosis 1+ 09/03/22 07:58: B-Natriuretic Peptide 183.1 H 09/03/22 07:58: Sodium 150 H, Potassium 3.5, Chloride 121 H, Carbon Dioxide 21.0, Anion Gap 8, BUN 33 H, Creatinine 0.81, Estim Creat Clear Calc 87.35, Est GFR (MDRD) Af Amer 130, Est GFR (MDRD) Non-Af 108, BUN/Creatinine Ratio 40.9 H, Glucose 125 H, Calcium 8.1 L 09/03/22 12:08: Blood Type O POSITIVE, Antibody Screen NEGATIVE, Crossmatch See Detail Micro: Microbiology 08/31/22 12:56 Urine, Random Urine Culture - Final Streptococcus agalactiae (B) Radiography Diagnostic Testing: Radiology Impression Chest X-Ray 09/03/22 05:01 IMPRESSION: Mild patchy airspace disease in the right lower lobe. Findings may indicate atelectasis or infection. Electronically Signed: Shankar Vázquez MD at 6:38 EST Reading Location ID and State: [facility] / [place] Tel , Service support , Physical Exam Narrative alert and no apparent distress Constitutional Narrative: Patient response to simple questions slowly but appropriately General Appearance: cooperative, well kempt and well developed Orientation / Consciousness: awake HEENT normocephalic, head/scalp atraumatic and moist oral mucous membranes Eyes PERRL, EOMs intact bilaterally and conjunctivae normal Neck supple, no JVD, thyroid normal and no carotid bruits General: trachea midline Resp normal respiratory effort, no retractions, no use of accessory muscles and clear to auscultation bilaterally Auscultation: Negative for rales, rhonchi or wheezes Cardio regular rate, regular rhythm, S1 normal heart sound, S2 normal heart sound, no murmurs, no rub and no gallops GI normal to inspection, nondistended, normoactive bowel sounds, soft to palpation, non-tender and non-distended Extremity normal to inspection and no clubbing, cyanosis or edema Skin no rashes or lesions noted General Skin Exam: no breakdown Neuro Neuro Narrative: Patient has left hemiplegia Sensorium / Orientation: awake and alert Psych Psych Narrative: Patient's speech is slow, he is able to answer simple questions appropriately Assessment & Plan Assessment/Plan (1) Acute right MCA stroke: PLAN: Plan 1. Acute right MCA stroke-patient will remain on aspirin, patient is being seen by PT and OT as well as speech therapy, patient will undergo PEG tube insertion tomorrow for nutritional support #2 [id number] has deferred any further testing other than an echocardiogram at this time, patient's echocardiogram showed an EF of 60% #3 recently diagnosed esophageal cancer, I talked to the patient's GI doctor, his EGD was performed on August 21, 2022, tissue samples revealed adeno CA, patient is due to follow-up with Dr. Lomax next week, I discussed this with the patient's mother by phone yesterday. The patient's mother is of the opinion that the patient will probably do poorly with treatment for this esophageal cancer due to of his large stroke. I think that this is correct. #4 dehydration-patient will be maintained on IV fluids, BMP was improved today #5 Chronic severe protein and caloric malnutrition-related to esophageal cancer as evidenced by a 20.2 pound weight loss in 2 to 3 months, less than 75% intake of estimated energy needs for more than a month and moderate fat and muscle loss to temporal and orbital regions-full liquid diet will be continued with consistency per speech therapy, Ensure Plus high-protein 3 times daily with meals has been ordered, patient will have a PEG tube insertion tomorrow which will provide nutritional support for the patient. Prognosis of his overall poor due to the patient's large stroke and overall poor medical condition. Charges/Coding Visit Charges Inpatient E&M: 26142 Subs Hosp L2
--- NOTE | 2022-09-03 17:08 | CON.PCM_ITS ---
Assessment & Plan Assessment/Plan (1) History of esophageal cancer: PLAN: work up is still in progess. (2) Anemia: PLAN: Anemia is likely secondary to esophageal dysphagia. I will assess the esophageal mass during his upper endoscopy. (3) Dysphagia: PLAN: Dysphagia is likely secondary to his esophageal mass. He may be able to be dilated during upper endoscopy. Also I think he is having oropharyngeal dysphagia secondary to stroke. HPI Consult Data Date of Consult: 09/03/22 HPI Narrative Reason for Consultation: Dysphagia HPI Narrative: KELLY DE JESUS, is a 52 M who presents 52 M who presented to the ER after being found down by family on 08/31/22.? Patient had not been seen nor contacted by family in about a week and a half.? Patient states that he is only down for about an hour but upon further inqui ry, patient has no recollection of the events from yesterday.? He told me he watch the [employer] and that [employer] won (they lost 45-23).? I asked him what he was doing during the game he said he was laying around.? It was unclear as to how long the patient has been down.? [facility] neurology was contacted as patient was found to have a right MCA stroke.? Given that the time of onset was unclear they felt the patient was too far gone potentially to have retrieval did not recommend transfer. In the ED he was also similarly elevated troponin possibly secondary to ST segment elevation IA and is currently being seen by cardiology. Also noted likely. It has been slowly drifting down the morning it is 5.7. Received 2 units of packed red blood cells. Approximately 2 upper endoscopy for esophageal was is having esophageal cancer and has been having worsening dysphagia. He underwent a swallowing study. He failed RN dysphagia screen and was made strict NPO prior to ST consult. Per RN the patient was consuming only clear liquids at home. Per pt, he had only been diagnosed with esophageal cancer for ~2 weeks, so he has not yet received any treatment. As per the patient and the patient's mother they are not sure if he was evaluated any work-up or treatment for his newly diagnosed esophageal cancer. I was asked to see him for a PEG tube placement due to malnutrition and worsening dysphagia.? [facility] Medical History Contact with and (suspected) exposure to other viral communicable diseases Esophageal cancer Home Medications pantoprazole 40 mg tablet,delayed release 40 mg PO DAILY 08/31/22 [History Last Taken Unknown] Allergy/AdvReac Type Severity Reaction Status Date / Time No Known Allergies Allergy Verified 06/10/22 10:32 Social History household members: none Smoking Status: Current every day smoker tobacco type: cigarettes alcohol intake: current ROS Constitutional Constitutional: Denies fever(s) or weight loss Eyes Eyes: Reports systems reviewed and no addt'l complaints, except as documented ENT HEENT: Reports systems reviewed and no addt'l complaints, except as documented Cardiovascular Cardiovascular: Denies chest pain at rest, chest pain with activity, dyspnea at rest, dyspnea on exertion, edema, palpitations or paroxysmal nocturnal dyspnea Respiratory/Chest Respiratory/Chest: Denies dyspnea on exertion, productive cough, shortness of breath at rest or shortness of breath with exertion Gastrointestinal Gastrointestinal: Denies change in bowel habits, nausea, vomiting or weight changes Genitourinary Genitourinary: Denies difficulty urinating Musculoskeletal Musculoskeletal: Denies joint stiffness or muscle weakness Integumentary Integumentary: Denies lesions Neurologic Neurologic: Denies dizziness or syncope Psychiatric Psychiatric: Denies anxiety Endocrine Endocrinology: Denies excessive sweating or fatigue Hematologic/Lymphatic Hematologic/Lymphatic: Denies anemia Allergic/Immunologic Allergic/Immunologic: Denies seasonal rhinorrhea Physical Exam Narrative alert and no apparent distress Constitutional Narrative: Patient response to simple questions slowly but appropriately General Appearance: cooperative, well kempt and well developed Orientation / Consciousness: awake HEENT normocephalic, head/scalp atraumatic and moist oral mucous membranes Eyes PERRL, EOMs intact bilaterally and conjunctivae normal Neck supple, no JVD, thyroid normal and no carotid bruits General: trachea midline Resp normal respiratory effort, no retractions, no use of accessory muscles and clear to auscultation bilaterally Auscultation: Negative for rales, rhonchi or wheezes Cardio regular rate, regular rhythm, S1 normal heart sound, S2 normal heart sound, no murmurs, no rub and no gallops GI normal to inspection, nondistended, normoactive bowel sounds, soft to palpation, non-tender and non-distended Extremity normal to inspection and no clubbing, cyanosis or edema Skin no rashes or lesions noted General Skin Exam: no breakdown Neuro Neuro Narrative: Patient has left hemiplegia Sensorium / Orientation: awake and alert Psych Psych Narrative: Patient's speech is slow, he is able to answer simple questions appropriately Medical Records Data Medical Nutrition Assessment Dietitian: Malnutrition Criteria Met Start: 09/02/22 14:49 Freq: Status: Active Protocol: Document 09/02/22 14:49 LO (Rec: 09/02/22 14:49 [id number]) Nutrition Malnutrition Evidence of Malnutrition Exists Yes Malnutrition (severe): Chronic Evidenced By Suboptimal Energy Intake ( Severe),Weight Loss (Severe), Physical Changes (Moderate) Intake Problem Inadequate Oral Intake Etiology related to esophageal cancer Signs/Symptoms as evidenced by patient report of Clear Liquid diet prior to admission and suboptimal appetite. Status Active Problem Clinical Problem Chronic Disease or Condition Related Malnutrition Etiology related to esophageal cancer Signs/Symptoms as evidenced by 20.2lbs (13.9% ) weight loss in 2-3 months, < 75% intake of estimated energy needs for >1 month and moderate fat and muscle loss to temporal and orbital regions. Status Active Problem Unintended Weight Loss Etiology related to predicted inadequate oral intake and esophageal cancer Signs/Symptoms as evidenced by 9.9lbs (7.3%) weight loss in 12 days. Status Inactive Problem Recommendation Dietitian Recommendations/Changes Continue Full Liquid diet with consistency per ST to manage swallowing difficulties. RD will order Ensure Plus High Protein TID with meals - thickened to mildly thick consistency Lab / Micro Data Result Diagrams: 09/03/22 07:58 09/03/22 07:58 Labs: Laboratory Results - last 24 hr 09/03/22 07:58: WBC 11.4 H, RBC 1.97 L, Hgb 5.4 L*, Hct 18.3 L, MCV 92.9, MCH 27.4, MCHC 29.5 L, RDW Std Deviation 51.7 H, RDW Coeff of Lexus 15.4 H, Plt Count 247, MPV 9.6, Immature Gran % (Auto) 0.300, Neut % (Auto) 89.4 H, Lymph % (Auto) 6.5 L, [place] % (Auto) 3.5, Eos % (Auto) 0.1, Baso % (Auto) 0.2, Absolute Neuts (auto) 10.2 H, Absolute Lymphs (auto) 0.74 L, Nucleated RBC % 0, Differential Comment SCANNED, Diff Path Review Reviewed, Hypochromasia 1+, Anisocytosis 2+, Microcytosis 1+, Macrocytosis 1+ 09/03/22 07:58: B-Natriuretic Peptide 183.1 H 09/03/22 07:58: Sodium 150 H, Potassium 3.5, Chloride 121 H, Carbon Dioxide 21.0, Anion Gap 8, BUN 33 H, Creatinine 0.81, Estim Creat Clear Calc 87.35, Est GFR (MDRD) Af Amer 130, Est GFR (MDRD) Non-Af 108, BUN/Creatinine Ratio 40.9 H, Glucose 125 H, Calcium 8.1 L 09/03/22 12:08: Blood Type O POSITIVE, Antibody Screen NEGATIVE, Crossmatch See Detail Radiology Impression Chest X-Ray 09/03/22 05:01 IMPRESSION: Mild patchy airspace disease in the right lower lobe. Findings may indicate atelectasis or infection. Electronically Signed: Shankar Vázquez MD at 6:38 EST , Charges/Coding Visit Charges Inpatient E&M: 93604 Init Hosp L3
--- NOTE | 2022-09-03 17:20 | RAD_ITS ---
INDICATION: hypoxia EXAMINATION/TECHNIQUE: X-RAY - XR Chest 1 View COMPARISON: 09/03/2022. FINDINGS: Slight worsening of patchy opacities in the bilateral lower lobes. The cardiomediastinal silhouette is stable. No pleural effusion or pneumothorax. The osseous structures are unchanged. RAD/Chest 1 View (Portable) IMPRESSION: Slight worsening of patchy opacities in the bilateral lower lobes. Otherwise, no change from prior study. Electronically Signed: Chavo Thakur MD at 18:10 EST ,
[2022-09-03 17:50] LABS: Allen Test Positive; Base Excess -4 mmol/L (-2 to +2); Bicarbonate 19.4 mmol/L (22-26); Blood Gas Specimen Type ART; O2 Delivery Device HFNC; PO2 73 mmHG (75-100); SITE L Radial; SO2 96 % (95-99); Total Carbon Dioxide 20 mmol/L; pCO2 26.9 mmHg (35-45); pH 7.47 (7.35-7.45)
--- NOTE | 2022-09-03 17:54 | CT_ITS ---
INDICATION: respiratory failure EXAMINATION: CTA Chest WO/W Contrast Injection TECHNIQUE: Helically acquired images were obtained of the chest following administration of IV contrast. A radiation dose optimization technique was used for this scan. 3D postprocessing images including MIPS were reviewed. IV Contrast dosage and agent: IV 100mL [id number] COMPARISON: None. FINDINGS: Lungs: Groundglass and tree-in-bud opacities with patchy airspace consolidation, most notable in the bilateral lung bases. Mediastinum: The cardiomediastinal silhouette is not enlarged. There is mediastinal and bilateral hilar adenopathy. Mild aortic arch and coronary artery calcifications. There is small volume nonocclusive clot seen within the right lower lobe, right middle lobe and right upper lobe segmental and subsegmental pulmonary arteries. No evidence of right heart strain. Pleura: Unremarkable Bones/Soft tissues: There are diffuse degenerative changes of the spine. Upper abdomen: Innumerable hypoattenuating lesions throughout the liver. Extremely dilated and patulous fluid-filled esophagus. Abnormal thickening of the fundus of the stomach with surrounding lymphadenopathy. CT/CTA Chest W/WO Contrast IMPRESSION: Small volume nonocclusive acute pulmonary emboli in the right lower lobe, right middle lobe and right upper lobe segmental and subsegmental pulmonary arteries. No evidence of right heart strain. 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 Multifocal pneumonia. Extremely dilated and patulous fluid-filled esophagus. N.B. : PCU nurse Stefany Stephen RN, confirmed on 09/03/2022 19:54:19 (ET) that the healthcare facility has received the radiology report. Electronically Signed: Chavo Thakur MD at 19:50 EST ,
[2022-09-03 18:26] LABS: Hematocrit 17.8 % (40-54); POSITIVE COUNT YES
--- NOTE | 2022-09-03 21:06 | VDLE_ITS ---
Reason For Study: PE RIGHT LEFT GSV is normal. GSV is normal. CFV is compressible, spontaneous, phasic, CFV is compressible, spontaneous, phasic, competent and demonstrates normal competent, and demonstrates normal augmentation. augmentation. FV is compressible, spontaneous, phasic, FV is compressible, spontaneous, phasic, competent and demonstrates normal competent and demonstrates normal augmentation. augmentation. POP V is compressible, spontaneous, phasic, POP V is compressible, spontaneous, phasic, competent and demonstrates normal competent and demonstrates normal augmentation. augmentation. T/P Trunk is compressible. T/P Trunk is compressible. PTV is compressible. PTV is compressible. RT PerV is compressible. Profunda V, Gastroc V, Peroneal V, and Soleus Soleus V is dilated and noncompressible. V are dilated and nonmcompressible. Procedure This is a venous duplex using B-mode, color flow and spectral Doppler. Exam performed portable in ICU/CCU. The exam was diagnostic. A preliminary report was called and/or faxed to Dr. Sheldon. VL/Venous Duplex US - Dragan Extrem Interpretation Summary Acute deep venous thrombosis right soleus vein Acute deep venous thrombosis left profunda and gastrocnemius and peroneal and s oleus veins Patent and compressible bilateral great saphenous veins Ordering Physician: Geovani Lewis Performed By: Jacob Perales RVT
--- NOTE | 2022-09-03 21:07 | PCM.PN.BLA ---
Progress Note CTA with PE. With patient's hemoglobin of 5 it to be unsafe to start patient on heparin. Will get Doppler of bilateral lower extremities.
[2022-09-03] MEDS: 0.9% Saline Lock 10 ML Syringe IV (21:24)
[2022-09-04] VITALS (39 sets, daily range): BP systolic 110–125; BP diastolic 76–94; PULSE 108–151; RESP 16–42; TEMP 35.9–39.2; O2SAT 90–98; BMI 21.3
--- NOTE | 2022-09-04 01:00 | NURSING ---
patient placed on airvo, will monitor respirations and heart rate through the night
[2022-09-04 01:05] LABS: Hematocrit 20.1 % (40-54); Hemoglobin 6.1 g/dL (13.0-16.5)
--- NOTE | 2022-09-04 02:48 | RAD_ITS ---
STUDY: X-RAY CHEST REASON FOR EXAM: Male, 52 years old. ordered shortness of breath. TECHNIQUE: AP portable. 2:56 AM. COMPARISON: 09/03/2022. FINDINGS: LUNGS: Alveolar infiltrates in the lung bases slightly increased compared to prior study. No pneumothorax. MEDIASTINUM: Unremarkable. CARDIAC SILHOUETTE: Not enlarged. BONES AND SOFT TISSUES: No acute abnormalities. RAD/Chest 1 View (Portable) IMPRESSION: Slightly increased bibasilar airspace disease. Electronically Signed: Catherine Cortez MD at 3:30 EST ,
[2022-09-04] MEDS: Furosemide 100 MG/10 ML Vial 80 MG IV (03:02)
--- NOTE | 2022-09-04 05:46 | PCM.PN.BLA ---
Progress Note Patient with fever while 3rd unit of blood was transfusing. Per nurse blood was stopped about [address] Check Chavez test. Check urine culture; blood culture; cmp and cbc.
[2022-09-04 05:52] LABS: Absolute Lymphocyte Count 1.01 X10^3/uL (0.83-4.51); Absolute Neutrophil Count 11.3 X10^3/uL (2.0-7.7); Basophil# 0.05 X10^3/uL; Basophil% 0.4 % (0-1); Eosinophil# 0.03 X10^3/uL; Eosinophils% 0.2 % (0-5); Hematocrit 25.2 % (40-54); Hemoglobin 7.9 g/dL (13.0-16.5); Lymphocyte # 1.01 X10^3/ul (0.83-4.51); Lymphocyte % 7.9 % (19-41); Mean Corp Hgb Conc 31.3 g/dL (32-36); Mean Corpuscular Hgb 28.5 pg (27.0-32.0); Mean Platelet Vol. 10.8 fl (6.2-12.0); Monocyte# 0.36 X10^3/uL; Monocyte% 2.8 % (0-10); NRBC Flagged by Analyzer 0.5 % (0-5); Neutrophil # 11.32 X10^3/uL (2.7-7.7); Neutrophil % 88.2 % (47-70); Platelet Count 285 K/mm3 (150-450); RBC Distribution Width CV 14.8 % (11.6-14.6); RBC Distribution Width SD 48.6 fl (35.1-43.9); Red Blood Count 2.77 M/mm3 (4.6-6.2); White Blood Count 12.8 K/mm3 (4.4-11.0)
[2022-09-04 06:12] LABS: International Normalized Ratio 1.6; Prothrombin Time (Protime)PT. 18.3 SECONDS (11.7-14.9)
[2022-09-04 06:13] LABS: Partial Thromboplast Time 40.7 Seconds (24.1-36.2)
--- NOTE | 2022-09-04 06:21 | PCM.RX.CS ---
Consult Pharmacy has been consulted to manage selected antiobiotic: Vancomycin Type of Consult: New start Microbiology: Microbiology 08/31/22 12:56 Urine, Random Urine Culture - Final Streptococcus agalactiae (B) Weight used for dosin.6 kg Estimated Creatinine Clearance: 86.4 Goal Trough: 15-20 mcg/mL Pharmacy Plan for Drug Dosing: Pharmacy Service will continue to monitor and adjust dosing as required. Medications Vancomycin HCl (Vancomycin) 1,000 mg in 200 mls @ 200 mls/hr IV Q12H MADIHA Vancomycin HCl 1,250 mg/ (Sodium Chloride) 275 mls @ 167 mls/hr IV X1 ONE Stop: 09/04/22 06:38 Last Admin: 09/04/22 05:54 Dose: 167 mls/hr Follow-Up Labs: Trough Vancomycin Labs to be done on [date and time ordered]: 09/05 @ 3163
[2022-09-04 06:27] LABS: ALB/GLOB Ratio 0.7 RATIO (0.9-2.4); AST(SGOT) 252 U/L (15-37); Alanine Aminotransfer ALT/SGPT 205 U/L (16-61); Albumin, Serum 2.3 g/dL (3.2-5.0); Alkaline Phosphatase 488 U/L (45-117); Anion Gap 10 (5-15); BUN 52 mg/dL (7-18); BUN/Creat Ratio 42.6 RATIO (10-20); Calcium,Total 7.8 mg/dL (8.5-10.1); Chloride 127 mmol/L (98-107); Creatinine, Serum 1.22 mg/dL (0.70-1.30); EST Glomerular Filtration Rate 67 mL/min (>60); Est Glom Filt Rate - Afr Amer 81 mL/min (>60); Estimated Creatinine Clearance 57.99 ml/min; Globulin 3.1 g/dL (2.2-4.2); Glucose 154 mg/dL (74-106); Lactic Acid 4.7 mmol/L (0.4-1.9); Potassium 3.5 mmol/L (3.5-5.1); Protein, Total 5.4 g/dL (6.4-8.2); Sodium Level 158 mmol/L (136-145)
[2022-09-04] MEDS: Acetaminophen 650 MG Suppository RC (06:34)
[2022-09-04 06:46] LABS: Color, Urine- Transfusion RXN Yellow (Yellow)
[2022-09-04 06:48] LABS: Occult Blood-Urine Supernatant Negative (Negative)
[2022-09-04 06:54] LABS: TXN RXN Red Blood Cells-Urine 0 SEEN /hpf
--- NOTE | 2022-09-04 06:54 | SEPSISATNOTE ---
Sepsis Attestation Sepsis Attestation: Agree w/Sepsis Date exam was performed: 09/04/22 Time exam was performed: 06:55 Fluid Resuscitation Fluid Resuscitation ordered: 30 ml/kg fluid bolus ordered
--- NOTE | 2022-09-04 06:59 | NURSING ---
Report given to BRENDA (ICU) for transfer
--- NOTE | 2022-09-04 08:12 | EX.PCM.CONCC ---
Assessment & Plan Assessment/Plan (1) Acute right MCA stroke: (2) Anemia: (3) History of esophageal cancer: PLAN: Plan RECOMMENDATIONS: 1. Stop continuous IV fluids. 2. Agree with empiric antimicrobials for now. 3. Continue PPI therapy. 4. Consider IVC filter placement, given DVT and PE. 5. Wean supplemental oxygen to maintain saturations at or above 90%. 6. Encourage incentive spirometer use. 7. Physical therapy to work with the patient. 8. Tentative plans for PEG tube placement today. IMPRESSIONS: 1. Fever with lactic acidemia While sepsis is certainly possible consideration, and acute transfusion reaction could also have elicited the same type of vital sign perturbations. Although the patient has an elevated lactate, this could be related to his underlying malignancy and potential hepatic metastatic disease. The patient is hemodynamically stable. For now, it is reasonable to continue empiric antimicrobials, while awaiting infectious work-up. In light of his history of dysphagia and abnormalities noted on chest imaging, aspiration pneumonia is certainly a possibility. In light of the fact that the patient is nearly 10 L positive for the hospitalization with a tenuous respiratory status, I would avoid any additional fluids over concerns for potential clinical decompensation. Transfusion reaction work-up is pending. 2. Pulmonary emboli and associated lower extremity DVT CTA chest demonstrated right-sided pulmonary emboli. Unfortunately, the patient is unable to be systemically anticoagulated due to anemia and recent CVA. Lower extremity Dopplers were positive for DVTs. Therefore, will confer with general surgery about the feasibility for IVC filter placement. 3. Recently diagnosed esophageal cancer and associated dysphagia The patient was recently diagnosed with esophageal CA on an outpatient basis, but is yet to complete a staging work-up. It is unclear what type of treatment will be available to this individual given his severely decompensated state. 4. Hypernatremia/hyperchloremia Likely secondary to judicious use of sodium containing fluids. Recommend discontinuation of IV fluids. Pending stability in the patient's clinical status, I would recommend an attempt at diuresis tomorrow. 5. Hyperbilirubinemia/transaminitis Clinical concern for underlying metastatic disease. Plan to continue supportive measures as noted above. GI is following to assist with medical management. This note was generated with [employer] software. It may contain incorrect words, spelling, and punctuation that were not noted in checking the note before signing. HPI Consult Data Date of Consult: 09/04/22 HPI Narrative Reason for Consultation: Acute respiratory failure HPI Narrative: The patient is a 52-year-old male, with a history as outlined below, who presented to the emergency department via EMS on August 31 with left-sided weakness. The patient was recently diagnosed with esophageal cancer by Dr. Anguiano of several weeks ago. He has yet to complete any staging and has therefore not been started on any form of therapy. On presentation to the emergency department, the patient was noted to be afebrile and hemodynamically stable. He was initially documented to be saturating 100% on room air. Initial laboratory evaluation revealed no evidence of a leukocytosis. The patient was anemic with a hemoglobin of 9.3 g/dL. Coagulation profile was unremarkable. Chemistry profile was unrevealing. Troponin was elevated at 1199. Head and neck CTA demonstrated occlusion of the right MCA with evidence of acute infarction. Given the unknown amount of time that had elapsed, he was not felt to be a candidate for transfer and subsequent intervention of his large vessel occlusion. In light of his elevated troponin, the patient was evaluated by cardiology who felt that the patient was experiencing an NSTEMI. Surface echocardiogram completed on September 01 demonstrated normal LV size and function with an ejection fraction of 60%. CTA chest completed yesterday demonstrated small nonocclusive pulmonary emboli involving the right upper, middle and lower lobe. There were radiographic findings concerning for possible gastric carcinoma with hepatic metastasis, along with tree-in-bud opacities and airspace consolidation in the lung bases bilaterally. The patient's hospital course has been complicated by slowly worsening anemia with a mali hemoglobin of 5.0 g/dL on September 03. The patient was transfused 2 units of packed red blood cells. The patient was receiving his third unit of packed red blood cells early this morning when he developed a fever. The transfusion was halted. In the setting of recent fluid administration, the patient's sodium and chloride are both elevated at 158 and 127, respectively. A lactate was checked this morning and found to be elevated at 4.7. Total bili is increased to 2.1. The patient just had a lower extremity Doppler study completed this morning which revealed evidence of DVT. The patient is not able to be anticoagulated in light of his anemia and CVA. CODE STATUS was just discussed by the hospitalist, and per request, was transitioned to DNR CCA without intubation. FOR[facility]LY [facility] Medical History Contact with and (suspected) exposure to other viral communicable diseases Esophageal cancer Home Medications pantoprazole 40 mg tablet,delayed release 40 mg PO DAILY 08/31/22 [History Last Taken Unknown] Allergy/AdvReac Type Severity Reaction Status Date / Time No Known Allergies Allergy Verified 06/10/22 10:32 Social History household members: none Smoking Status: Current every day smoker tobacco type: cigarettes alcohol intake: current ROS Constitutional Constitutional: Reports fatigue and malaise Eyes Eyes: Denies blurry vision or change in vision ENT HEENT: Reports dysphagia Cardiovascular Cardiovascular: Reports dyspnea; Denies chest pain or dizziness Respiratory/Chest Respiratory/Chest: Reports dyspnea; Denies cough or hemoptysis Gastrointestinal Gastrointestinal: Reports dysphagia; Denies abdominal pain, nausea or vomiting Genitourinary Genitourinary: Denies difficulty urinating Musculoskeletal Musculoskeletal: Denies arthralgias or back pain Integumentary Integumentary: Denies lesions, rash or skin ulcer Neurologic Neurologic: Reports focal weakness Psychiatric Psychiatric: Denies anxiety or depression Endocrine Endocrinology: Reports fatigue Hematologic/Lymphatic Hematologic/Lymphatic: Denies easy bleeding or easy bruising Physical Exam Const alert Constitutional Narrative: Jaundice in appearance General Appearance: ill appearing and frail HEENT normocephalic and head/scalp atraumatic Eyes PERRL and EOMs intact bilaterally Neck supple General: trachea midline Chest inspection of chest normal Resp Effort and Inspection: tachypneic Auscultation: rales; Negative for rhonchi or wheezes Cardio S1 normal heart sound and S2 normal heart sound Rate: tachycardic GI normal to inspection, nondistended, normoactive bowel sounds Extremity no clubbing, cyanosis or edema Skin no rashes or lesions noted Neuro CN's II-XII intact bilaterally Psych Mood & Affect: flat affect Medical Records Data Medical Nutrition Assessment Dietitian: Malnutrition Criteria Met Start: 09/02/22 14:49 Freq: Status: Active Protocol: Document 09/02/22 14:49 LO (Rec: 09/02/22 14:49 [id number]) Nutrition Malnutrition Evidence of Malnutrition Exists Yes Malnutrition (severe): Chronic Evidenced By Suboptimal Energy Intake ( Severe),Weight Loss (Severe), Physical Changes (Moderate) Intake Problem Inadequate Oral Intake Etiology related to esophageal cancer Signs/Symptoms as evidenced by patient report of Clear Liquid diet prior to admission and suboptimal appetite. Status Active Problem Clinical Problem Chronic Disease or Condition Related Malnutrition Etiology related to esophageal cancer Signs/Symptoms as evidenced by 20.2lbs (13.9% ) weight loss in 2-3 months, < 75% intake of estimated energy needs for >1 month and moderate fat and muscle loss to temporal and orbital regions. Status Active Problem Unintended Weight Loss Etiology related to predicted inadequate oral intake and esophageal cancer Signs/Symptoms as evidenced by 9.9lbs (7.3%) weight loss in 12 days. Status Inactive Problem Recommendation Dietitian Recommendations/Changes Continue Full Liquid diet with consistency per ST to manage swallowing difficulties. RD will order Ensure Plus High Protein TID with meals - thickened to mildly thick consistency Lab / Micro Data Result Diagrams: 09/04/22 05:35 09/04/22 05:35 Labs: Laboratory Results - last 24 hr 09/03/22 07:58: Differential Comment SCANNED, Diff Path Review Reviewed, Hypochromasia 1+, Anisocytosis 2+, Microcytosis 1+, Macrocytosis 1+ 09/03/22 07:58: B-Natriuretic Peptide 183.1 H 09/03/22 07:58: Sodium 150 H, Potassium 3.5, Chloride 121 H, Carbon Dioxide 21.0, Anion Gap 8, BUN 33 H, Creatinine 0.81, Estim Creat Clear Calc 87.35, Est GFR (MDRD) Af Amer 130, Est GFR (MDRD) Non-Af 108, BUN/Creatinine Ratio 40.9 H, Glucose 125 H, Calcium 8.1 L 09/03/22 12:08: Blood Type O POSITIVE, Antibody Screen NEGATIVE, Crossmatch See Detail 09/03/22 12:08: Crossmatch See Detail 09/03/22 18:10: Hgb 5.0 L*, Hct 17.8 L 09/04/22 00:55: Hgb 6.1 L, Hct 20.1 L 09/04/22 05:35: WBC 12.8 H, RBC 2.77 L, Hgb 7.9 L, Hct 25.2 L, MCV 91.0, MCH 28.5, MCHC 31.3 L D, RDW Std Deviation 48.6 H, RDW Coeff of Lexus 14.8 H, Plt Count 285, MPV 10.8, Immature Gran % (Auto) 0.500, Neut % (Auto) 88.2 H, Lymph % (Auto) 7.9 L, Mathews % (Auto) 2.8, Eos % (Auto) 0.2, Baso % (Auto) 0.4, Absolute Neuts (auto) 11.3 H, Absolute Lymphs (auto) 1.01, Nucleated RBC % 0.5 09/04/22 05:35: PT 18.3 H, INR 1.6, APTT 40.7 H 09/04/22 05:35: Lactic Acid 4.7 H* 09/04/22 05:35: Direct Antiglob Test Cancelled 09/04/22 05:35: Sodium 158 H, Potassium 3.5, Chloride 127 H*, Carbon Dioxide 21.0, Anion Gap 10, BUN 52 H, Creatinine 1.22, Estim Creat Clear Calc 57.99, Est GFR (MDRD) Af Amer 81, Est GFR (MDRD) Non-Af 67, BUN/Creatinine Ratio 42.6 H, Glucose 154 H, Calcium 7.8 L, Total Bilirubin 2.10 H, AST 252 H, ALT 205 H, Alkaline Phosphatase 488 H, Total Protein 5.4 L, Albumin 2.3 L, Globulin 3.1, Albumin/Globulin Ratio 0.7 L ABG Data ABG results: ABG 09/03/22 17:46 Specimen Type ART Sample Site L Radial pH 7.47 H Bicarbonate Actual 19.4 L Total CO2 20 Base Excess -4 L O2 Saturation 96 ABG pCO2 26.9 L ABG pO2 73 L Sumit Test Positive O2 Delivery Device HFNC Liter Flow 12.0 Radiology Impression Chest X-Ray 09/03/22 17:20 IMPRESSION: Slight worsening of patchy opacities in the bilateral lower lobes. Otherwise, no change from prior study. Electronically Signed: Chavo Thakur MD at 18:10 EST , Chest CTA 09/03/22 17:54 IMPRESSION: Small volume nonocclusive acute pulmonary emboli in the right lower lobe, right middle lobe and right upper lobe segmental and subsegmental pulmonary arteries. No evidence of right heart strain. 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 Multifocal pneumonia. Extremely dilated and patulous fluid-filled esophagus. N.B. : PCU nurse Stefany Stephen RN, confirmed on 09/03/2022 19:54:19 (ET) that the healthcare facility has received the radiology report. Electronically Signed: Chavo Thakur MD at 19:50 EST , Chest X-Ray 09/04/22 02:48 IMPRESSION: Slightly increased bibasilar airspace disease. Electronically Signed: Catherine Cortez MD at 3:30 EST , Sepsis Attestation Fluid Resuscitation Fluid Resuscitation ordered: Fluids not indicated Reason for lesser fluid bolus:: Concern for fluid overload Charges/Coding Visit Charges Inpatient E&M: 38492 Init Hosp L3
--- NOTE | 2022-09-04 08:17 | PCM.RX.CS ---
Consult Pharmacy has been consulted to manage selected antiobiotic: Vancomycin Type of Consult: Follow-up Prior Doses of Antibiotics Received/Current Regimen: Received 1250mg iv x 1 as loading dose on 09.04.22 @9333. Labs: Sodium 158 mmol/L (136-145) H 09/04/22 05:35 Potassium 3.5 mmol/L (3.5-5.1) 09/04/22 05:35 Chloride 127 mmol/L (98-107) H* 09/04/22 05:35 Carbon Dioxide 21.0 mmol/L (21.0-32.0) 09/04/22 05:35 Anion Gap 10 (5-15) 09/04/22 05:35 BUN 52 mg/dL (7-18) H 09/04/22 05:35 Creatinine 1.22 mg/dL (0.70-1.30) 09/04/22 05:35 Est GFR (MDRD) Af Amer 81 mL/min (>60) 09/04/22 05:35 Est GFR (MDRD) Non-Af 67 mL/min (>60) 09/04/22 05:35 BUN/Creatinine Ratio 42.6 RATIO (10-20) H 09/04/22 05:35 Glucose 154 mg/dL (74-106) H 09/04/22 05:35 Microbiology: Microbiology 08/31/22 12:56 Urine, Random Urine Culture - Final Streptococcus agalactiae (B) Weight used for dosin.6 kg Estimated Creatinine Clearance: 57 ml/min Goal Trough: 15-20 mcg/mL Pharmacy Plan for Drug Dosing: Review of renal labs show decreased renal function. SCrCl changed from 86 ml/min to 57 ml/min. Will change dose to 500mg iv q12h. Trough level ordered for 09.05.22 @1734. Pharmacy Service will continue to monitor and adjust dosing as required. Follow-Up Labs: Trough Vancomycin - .11.26 @3292
--- NOTE | 2022-09-04 08:50 | CASEMGMT ---
SW received an e-mail from [facility] regarding patient's Medicaid application. Patient's pending case number is [id number]. SW will continue to follow and assist with d/c planning. Heike BONE
[2022-09-04 09:49] LABS: Reflex Lactate? Y
--- NOTE | 2022-09-04 09:49 | EX.PCM.CON.S ---
Assessment & Plan Assessment/Plan (1) Pulmonary embolism: PLAN: I have been consulted in conjunction with Dr. Orona. He will independently review the patient. Consult was to discuss and perform an inferior vena cava filter placement due to contraindication for anticoagulation. Patient was seen and evaluated. Procedure was explained. When asked if the patient is agreeable to proceed, patient stated no. I repeated that the patient did not want the proposed procedure that was discussed, patient stated yes. Patient was asked a 3rd time if he would be agreeable to proceed, patient stated no. Patient's nurse was updated that patient was refusing to proceed with the proposed procedure. Dr. Macias was also updated and patient's decision was discussed with him in person. Patient has also changed his code status this morning to DNR CCA, no intubation. We will NOT proceed with an inferior vena cava filter placement at this time, as patient is refusing. If patient changes his decision, please re-consult our services. Thank you for allowing us to participate in this patient's care. HPI Consult Data Date of Consult: 09/04/22 HPI Narrative Reason for Consultation: IVC filter placement HPI Narrative: KELLY DE JESUS, is a 52 M who presented on 08/31 via EMS after being found on the floor of his home with left sided weakness. Majority of the history was obtained per electronic medical records. Patient's family had not heard from him for approximately 1 1/2 weeks. Family member went to check on him and found him laying on the floor. EMS was called. Patient was evaluated in the ED for left-sided weakness, aphasic, right facial drop and bilateral eye deviation to the right. CTA of the brain was obtained noting acute right MCA infarction. Approximately 3/4 of the right brain was involved in the stroke. Neurology was consulted and did not recommend TPA due to unknown time frame of onset of symptoms. Patient was admitted by hospitalist to PCU. Patient's troponin levels were noted to be elevated. Patient denied chest pain. NSTEMI was diagnosed. Patient was not cleared by speech therapy to have a diet. PEG tube was discussed with patient yesterday and patient was agreeable yesterday to the PEG tube placement. Patient was also noted to have a Hgb of 5 yesterday. Patient was ordered to have 2 units PRBC, which were started last night. Over night patient developed increased shortness of breath requiring 15 liters of O2 on a non-rebreather. CTA of the chest was ordered on 09/03 demonstrating multiple pulmonary emboli of the right lung and per report patient is positive for DVT's. Patient was also recently diagnosed 2 weeks ago with esophageal cancer involving the GE junction. Dr. Anguiano performed an EGD 2 weeks ago which demonstrated the esophageal cancer. Report not available at this time. Patient was scheduled to be evaluated by Dr. Lomax for staging work up. From all of the imaging the patient has, it is known that metastasis to the liver is shown. Patient is also being worked up for an infectious process currently. Patient was given the recommendation from speech to have clear liquids yesterday. It is not know if the patient aspirated. Patient is also being worked up for transfusion reaction, as patient developed a fever during the 3rd blood transfusion. Patient's lactic acid is also currently 4.7. Patient is currently on Unasyn. Patient's need for O2 has decreased from 15 to 6 liters now via nasal canula. Patient's current Hgb is 7.9. Patient currently is tachycardiac with his last temperature being 102.4 degrees Fahrenheit. Vascular surgery was consulted to perform an IVC filter placement due to contraindication for anticoagulation. FORMERLY [facility], [facility]–1983 Medical History Contact with and (suspected) exposure to other viral communicable diseases Esophageal cancer Home Medications pantoprazole 40 mg tablet,delayed release 40 mg PO DAILY 08/31/22 [History Last Taken Unknown] Allergy/AdvReac Type Severity Reaction Status Date / Time No Known Allergies Allergy Verified 06/10/22 10:32 Social History household members: none Smoking Status: Current every day smoker tobacco type: cigarettes alcohol intake: current ROS Constitutional Constitutional: Reports anorexia and lethargy Eyes Eyes: Reports systems reviewed and no addt'l complaints, except as documented ENT HEENT: Reports systems reviewed and no addt'l complaints, except as documented Cardiovascular Cardiovascular: Reports systems reviewed and no addt'l complaints, except as documented Respiratory/Chest Respiratory/Chest: Reports shortness of breath at rest Gastrointestinal Gastrointestinal: Reports systems reviewed and no addt'l complaints, except as documented Genitourinary Genitourinary: Reports systems reviewed and no addt'l complaints, except as documented Musculoskeletal Musculoskeletal: Reports muscle weakness Integumentary Integumentary: Reports systems reviewed and no addt'l complaints, except as documented Neurologic Neurologic: Reports systems reviewed and no addt'l complaints, except as documented Psychiatric Psychiatric: Reports depression Endocrine Endocrinology: Reports systems reviewed and no addt'l complaints, except as documented Hematologic/Lymphatic Hematologic/Lymphatic: Reports systems reviewed and no addt'l complaints, except as documented Allergic/Immunologic Allergic/Immunologic: Reports systems reviewed and no addt'l complaints, except as documented Physical Exam Const alert Constitutional Narrative: Able to answer questions with yes and no verbally. Any extended answers are garbled. Patient evaluated resting in bed. Limbs appear to be contracted. Nutritional Appearance: cachectic and underweight HEENT normocephalic, head/scalp atraumatic and hearing grossly normal bilaterally Eyes Eyes Narrative: Bilateral eyes deviated to the right. Unable to make eye contact. Neck General: normal visual inspection Lymph Lymphatic: no lymphadenopathy noted Resp normal respiratory effort Auscultation: wheezes throughout Cardio Rate: tachycardic GI Palpation: soft and tender epigastric no CVA tenderness Back/Spine no CVA tenderness Extremity Extremity Narrative: Bilateral lower extremity muscle atrophy. Bilateral lower extremities contracted. Skin no rashes or lesions noted Neuro Sensorium / Orientation: awake and alert Speech: speech abnormal Details: Positive for garbled and other (Able to verbally say yes or no to questions, one worded answers. ) Gait (Neuro): unable to assess gait Psych Activity / Motor Behavior: avoids eye contact Mood & Affect: depressed and flat affect Thought Process: normal thought process Medical Records Data Medical Nutrition Assessment Dietitian: Malnutrition Criteria Met Start: 09/02/22 14:49 Freq: Status: Active Protocol: Document 09/02/22 14:49 LO (Rec: 09/02/22 14:49 [id number]) Nutrition Malnutrition Evidence of Malnutrition Exists Yes Malnutrition (severe): Chronic Evidenced By Suboptimal Energy Intake ( Severe),Weight Loss (Severe), Physical Changes (Moderate) Intake Problem Inadequate Oral Intake Etiology related to esophageal cancer Signs/Symptoms as evidenced by patient report of Clear Liquid diet prior to admission and suboptimal appetite. Status Active Problem Clinical Problem Chronic Disease or Condition Related Malnutrition Etiology related to esophageal cancer Signs/Symptoms as evidenced by 20.2lbs (13.9% ) weight loss in 2-3 months, < 75% intake of estimated energy needs for >1 month and moderate fat and muscle loss to temporal and orbital regions. Status Active Problem Unintended Weight Loss Etiology related to predicted inadequate oral intake and esophageal cancer Signs/Symptoms as evidenced by 9.9lbs (7.3%) weight loss in 12 days. Status Inactive Problem Recommendation Dietitian Recommendations/Changes Continue Full Liquid diet with consistency per ST to manage swallowing difficulties. RD will order Ensure Plus High Protein TID with meals - thickened to mildly thick consistency Lab / Micro Data Result Diagrams: 09/04/22 05:35 09/04/22 05:35 Labs: Laboratory Results - last 24 hr 09/03/22 07:58: Diff Path Review Reviewed 09/03/22 12:08: Blood Type O POSITIVE, Antibody Screen NEGATIVE, Crossmatch See Detail 09/03/22 12:08: Crossmatch See Detail 09/03/22 18:10: Hgb 5.0 L*, Hct 17.8 L 09/04/22 00:55: Hgb 6.1 L, Hct 20.1 L 09/04/22 05:35: WBC 12.8 H, RBC 2.77 L, Hgb 7.9 L, Hct 25.2 L, MCV 91.0, MCH 28.5, MCHC 31.3 L D, RDW Std Deviation 48.6 H, RDW Coeff of Lexus 14.8 H, Plt Count 285, MPV 10.8, Immature Gran % (Auto) 0.500, Neut % (Auto) 88.2 H, Lymph % (Auto) 7.9 L, [place] % (Auto) 2.8, Eos % (Auto) 0.2, Baso % (Auto) 0.4, Absolute Neuts (auto) 11.3 H, Absolute Lymphs (auto) 1.01, Nucleated RBC % 0.5 09/04/22 05:35: PT 18.3 H, INR 1.6, APTT 40.7 H 09/04/22 05:35: Lactic Acid 4.7 H* 09/04/22 05:35: Direct Antiglob Test Cancelled 09/04/22 05:35: Sodium 158 H, Potassium 3.5, Chloride 127 H*, Carbon Dioxide 21.0, Anion Gap 10, BUN 52 H, Creatinine 1.22, Estim Creat Clear Calc 57.99, Est GFR (MDRD) Af Amer 81, Est GFR (MDRD) Non-Af 67, BUN/Creatinine Ratio 42.6 H, Glucose 154 H, Calcium 7.8 L, Total Bilirubin 2.10 H, AST 252 H, ALT 205 H, Alkaline Phosphatase 488 H, Total Protein 5.4 L, Albumin 2.3 L, Globulin 3.1, Albumin/Globulin Ratio 0.7 L ABG Data ABG results: ABG 09/03/22 17:46 Specimen Type ART Sample Site L Radial pH 7.47 H Bicarbonate Actual 19.4 L Total CO2 20 Base Excess -4 L O2 Saturation 96 ABG pCO2 26.9 L ABG pO2 73 L Sumit Test Positive O2 Delivery Device HFNC Liter Flow 12.0 Radiology Impression Chest X-Ray 09/03/22 17:20 IMPRESSION: Slight worsening of patchy opacities in the bilateral lower lobes. Otherwise, no change from prior study. Electronically Signed: Chavo Thakur MD at 18:10 EST , Chest CTA 09/03/22 17:54 IMPRESSION: Small volume nonocclusive acute pulmonary emboli in the right lower lobe, right middle lobe and right upper lobe segmental and subsegmental pulmonary arteries. No evidence of right heart strain. 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 Multifocal pneumonia. Extremely dilated and patulous fluid-filled esophagus. N.B. : PCU nurse Stefany Stephen RN, confirmed on 09/03/2022 19:54:19 (ET) that the healthcare facility has received the radiology report. Electronically Signed: Chavo Thakur MD at 19:50 EST , Chest X-Ray 09/04/22 02:48 IMPRESSION: Slightly increased bibasilar airspace disease. Electronically Signed: Catherine Cortez MD at 3:30 EST , Charges/Coding Visit Charges Office Visits / Consults: 44916 IP Consult L3
--- NOTE | 2022-09-04 13:00 | OP.CCLET_ITS ---
09/04/2022 Benitez Anguiano Re : Upper GI endoscopy procedure for Artemio Roland Gladysr Silvio This procedure was performed on September. My impressions and recommendations are as follows: Impressions : - Food in the middle third of the esophagus. Removal was successful. - Partially obstructing, malignant esophageal tumor was found in the mid esophagus. Treated with argon beam coagulation. 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 Treated with a heater probe. - Malignant-appearing esophageal stenosis. Dilated. - Red blood in the entire stomach. - Normal duodenal bulb. - An externally removable PEG placement was successfully completed. Recommendations : - Return patient to [facility] for ongoing care. - NPO. - Continue present medications. My findings are described in the full procedure note, which is enclosed. If I can be of further assistance, please feel free to contact me at . Sincerely, Ganesh Mitchell, 09/04/2022 12:59:40 PM This report has been signed electronically.
--- NOTE | 2022-09-04 13:00 | OP.EGD_ITS ---
Patient Name: Artemio Roland Procedure Date: 09/04/2022 12:06 PM Date of : 1970 Age: 52 Procedure: Upper GI endoscopy Indications: Dysphagia Providers: Ganesh Mitchell DO Medicines: Monitored Anesthesia Care Patient Profile: This is a 52 year old male. Refer to note in patient chart for documentation of history and physical. Patient has symptoms of dysphagia with both liquids and solids. Complications: No immediate complications. Procedure: Pre-Anesthesia Assessment: - Prior to the procedure, a History and Physical was performed, and patient medications and allergies were reviewed. The risks and benefits of the procedure and the sedation options and risks were discussed with the patient. All questions were answered and informed consent was obtained. Patient identification and proposed procedure were verified by the physician. Mental Status Examination: alert and oriented. Airway Examination: normal oropharyngeal airway and neck mobility. Respiratory Examination: clear to auscultation. CV Examination: normal. Prophylactic Antibiotics: The patient does not require prophylactic antibiotics. Prior Anticoagulants: The patient has taken no previous anticoagulant or antiplatelet agents. ASA Grade Assessment: II - A patient with mild systemic disease. After reviewing the risks and benefits, the patient was deemed in satisfactory condition to undergo the procedure. The anesthesia plan was to use monitored anesthesia care (MAC). Immediately prior to administration of medications, the patient was re-assessed for adequacy to receive sedatives. The heart rate, respiratory rate, oxygen saturations, blood pressure, adequacy of pulmonary ventilation, and response to care were monitored throughout the procedure. The physical status of the patient was re-assessed after the procedure. After obtaining informed consent, the endoscope was passed under direct vision. Throughout the procedure, the patient's blood pressure, pulse, and oxygen saturations were monitored continuously. The Endoscope was introduced through the mouth, and advanced to the second part of duodenum. The upper GI endoscopy was accomplished without difficulty. The patient tolerated the procedure well. Scope In: 12:17:53 PM Scope Out: 12:49:16 PM Total Procedure Duration Time 0 hours 31 minutes 23 seconds Findings: Food was found in the middle third of the esophagus. Removal of food was accomplished. Verification of patient identification for the specimen was done. Estimated blood loss was minimal. A large, fungating mass with bleeding and stigmata of recent bleeding was found in the mid esophagus, 36 cm from the incisors. The mass was partially obstructing and circumferential. Coagulation for hemostasis using argon beam at 0.3 liters/minute and 30 roberts was successful. Estimated blood loss was minimal. A large, ulcerated, non-circumferential mass with oozing bleeding and stigmata of recent bleeding was found at the gastroesophageal junction. Coagulation for hemostasis using heater probe was successful. Estimated blood loss was minimal. One malignant-appearing, intrinsic stenosis was found 36 to 39 cm from the incisors. This stenosis was severe and measured 4 cm (in length). The stenosis was traversed after dilation. A TTS dilator was passed through the scope. Dilation with a 12-13.5-15 mm balloon dilator was performed to 15 mm. The dilation site was examined following endoscope reinsertion and showed moderate improvement in luminal narrowing. Red blood was found in the entire examined stomach. The patient was placed in the supine position for PEG placement. The stomach was insufflated to appose gastric and abdominal bush. A site was located in the cardia with excellent transillumination for placement. The abdominal wall was marked and prepped in a sterile manner. The area was anesthetized with 1 mL of 0.5% lidocaine. The trocar needle was introduced through the abdominal wall and into the stomach under direct endoscopic view. A snare was introduced through the endoscope and opened in the gastric lumen. The guide wire was passed through the trocar and into the open snare. The snare was closed around the guide wire. The endoscope and snare were removed, pulling the wire out through the mouth. A skin incision was made at the site of needle insertion. The externally removable 20 Fr Bard gastrostomy tube was lubricated. The G-tube was tied to the guide wire and pulled through the mouth and into the stomach. The trocar needle was removed, and the gastrostomy tube was pulled out from the stomach through the skin. The external bumper was attached to the gastrostomy tube, and the tube was cut to remove the guide wire. The final position of the gastrostomy tube was confirmed by relook endoscopy, and skin marking noted to be 4 cm at the external bumper. The final tension and compression of the abdominal wall by the PEG tube and external bumper were checked and revealed that the bumper was loose and not touching the skin. The feeding tube was capped, and the tube site cleaned and dressed. The duodenal bulb was normal. Impression: - Food in the middle third of the esophagus. Removal was successful. - Partially obstructing, malignant esophageal tumor was found in the mid esophagus. Treated with argon beam coagulation. 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 Treated with a heater probe. - Malignant-appearing esophageal stenosis. Dilated. - Red blood in the entire stomach. - Normal duodenal bulb. - An externally removable PEG placement was successfully completed. Recommendation: - Return patient to [facility] for ongoing care. - NPO. - Continue present medications. Procedure Code(s): --- Professional --- 67399, 59, Esophagogastroduodenoscopy, flexible, transoral; with control of bleeding, any method 30887, 51, Esophagogastroduodenoscopy, flexible, transoral; with directed placement of percutaneous gastrostomy tube 87775, 59, Esophagogastroduodenoscopy, flexible, transoral; with removal of foreign body(s) 17880, Esophagogastroduodenoscopy, flexible, transoral; with transendoscopic balloon dilation of esophagus (less than 30 mm diameter) CPT copyright 2017 [employer]. All rights reserved. The codes documented in this report are preliminary and upon seal mixing operator review may be revised to meet current compliance requirements. Ganesh Mitchell DO 09/04/2022 12:59:40 PM This report has been signed electronically. Number of Addenda: 0 Note Initiated On: 09/04/2022 12:06 PM
--- NOTE | 2022-09-04 15:51 | PCM.PN.HOSP ---
Subjective Subjective Patient was seen and examined today, he was moved to the ICU early this morning due to concerns of declining respiratory stability. Patient had a CTA of his chest performed last night which showed evidence of PE, I talked briefly to the patient today and ask him about advanced directives-he stated he did not want to be put on a ventilator or have CPR performed if he coded. I change his CODE STATUS this morning, I attempted to talk with his mother by phone but it went to voicemail, I relayed to his nurse this morning to tell her that his CODE STATUS has been changed. Venous duplex of his legs showed evidence of VTE. Patient was seen by general surgery concerning insertion of IVC filter, patient declined after it was explained to him that it was recommended. 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 Objective Data Objective Data Vital Signs: Vital Signs Temp Pulse Resp BP Pulse Ox O2 Del Method O2 Flow Rate 97.9 F 115 H 16 113/76 93 Nasal Cannula 4 09/04/22 14:00 09/04/22 14:00 09/04/22 14:00 09/04/22 14:00 09/04/22 14:20 09/04/22 14:20 09/04/22 14:20 FiO2 50 09/04/22 05:58 Oxygen Flow Rate (L/min) 4 Oxygen Delivery Method Nasal Cannula Weight: 56.6 kg Body Mass Index (BMI) 21.3 Intake & Output: Intake and Output for Last 24 Hours 09/02/22 09/03/22 09/04/22 23:59 23:59 23:59 Intake Total 3120 / 3120 3368.50 / 3368.50 1142.33 / 1142.33 Output Total 825 / 825 750 / 750 Balance 3120 / 3120 2543.50 / 2543.50 392.33 / 392.33 Medical Nutrition Assessment Dietitian: Malnutrition Criteria Met Start: 09/02/22 14:49 Freq: Status: Active Protocol: Document 09/02/22 14:49 ARACELI (Rec: 09/02/22 14:49 [id number]) Nutrition Malnutrition Evidence of Malnutrition Exists Yes Malnutrition (severe): Chronic Evidenced By Suboptimal Energy Intake ( Severe),Weight Loss (Severe), Physical Changes (Moderate) Intake Problem Inadequate Oral Intake Etiology related to esophageal cancer Signs/Symptoms as evidenced by patient report of Clear Liquid diet prior to admission and suboptimal appetite. Status Active Problem Clinical Problem Chronic Disease or Condition Related Malnutrition Etiology related to esophageal cancer Signs/Symptoms as evidenced by 20.2lbs (13.9% ) weight loss in 2-3 months, < 75% intake of estimated energy needs for >1 month and moderate fat and muscle loss to temporal and orbital regions. Status Active Problem Unintended Weight Loss Etiology related to predicted inadequate oral intake and esophageal cancer Signs/Symptoms as evidenced by 9.9lbs (7.3%) weight loss in 12 days. Status Inactive Problem Recommendation Dietitian Recommendations/Changes Continue Full Liquid diet with consistency per ST to manage swallowing difficulties. RD will order Ensure Plus High Protein TID with meals - thickened to mildly thick consistency Lab / Micro Data Result Diagrams: 09/04/22 05:35 09/04/22 05:35 Labs: Laboratory Results - last 24 hr 09/03/22 12:08: Blood Type O POSITIVE, Antibody Screen NEGATIVE, Crossmatch See Detail 09/03/22 12:08: Crossmatch See Detail 09/03/22 18:10: Hgb 5.0 L*, Hct 17.8 L 09/04/22 00:55: Hgb 6.1 L, Hct 20.1 L 09/04/22 05:35: WBC 12.8 H, RBC 2.77 L, Hgb 7.9 L, Hct 25.2 L, MCV 91.0, MCH 28.5, MCHC 31.3 L D, RDW Std Deviation 48.6 H, RDW Coeff of Lexus 14.8 H, Plt Count 285, MPV 10.8, Immature Gran % (Auto) 0.500, Neut % (Auto) 88.2 H, Lymph % (Auto) 7.9 L, [place] % (Auto) 2.8, Eos % (Auto) 0.2, Baso % (Auto) 0.4, Absolute Neuts (auto) 11.3 H, Absolute Lymphs (auto) 1.01, Nucleated RBC % 0.5 09/04/22 05:35: PT 18.3 H, INR 1.6, APTT 40.7 H 09/04/22 05:35: Lactic Acid 4.7 H* 09/04/22 05:35: Direct Antiglob Test Cancelled 09/04/22 05:35: Sodium 158 H, Potassium 3.5, Chloride 127 H*, Carbon Dioxide 21.0, Anion Gap 10, BUN 52 H, Creatinine 1.22, Estim Creat Clear Calc 57.99, Est GFR (MDRD) Af Amer 81, Est GFR (MDRD) Non-Af 67, BUN/Creatinine Ratio 42.6 H, Glucose 154 H, Calcium 7.8 L, Total Bilirubin 2.10 H, AST 252 H, ALT 205 H, Alkaline Phosphatase 488 H, Total Protein 5.4 L, Albumin 2.3 L, Globulin 3.1, Albumin/Globulin Ratio 0.7 L Micro: Microbiology 08/31/22 12:56 Urine, Random Urine Culture - Final Streptococcus agalactiae (B) ABG Data ABG results: ABG 09/03/22 17:46 Specimen Type ART Sample Site L Radial pH 7.47 H Bicarbonate Actual 19.4 L Total CO2 20 Base Excess -4 L O2 Saturation 96 ABG pCO2 26.9 L ABG pO2 73 L Sumit Test Positive O2 Delivery Device HFNC Liter Flow 12.0 Radiography Diagnostic Testing: Radiology Impression Chest X-Ray 09/03/22 17:20 IMPRESSION: Slight worsening of patchy opacities in the bilateral lower lobes. Otherwise, no change from prior study. Electronically Signed: Chavo Thakur MD at 18:10 EST , Chest CTA 09/03/22 17:54 IMPRESSION: Small volume nonocclusive acute pulmonary emboli in the right lower lobe, right middle lobe and right upper lobe segmental and subsegmental pulmonary arteries. No evidence of right heart strain. 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 Multifocal pneumonia. Extremely dilated and patulous fluid-filled esophagus. N.B. : PCU nurse Stefany Stephen RN, confirmed on 09/03/2022 19:54:19 (ET) that the healthcare facility has received the radiology report. Electronically Signed: Chavo Thakur MD at 19:50 EST , Venous Doppler Study 09/03/22 21:06 Interpretation Summary Acute deep venous thrombosis right soleus vein Acute deep venous thrombosis left profunda and gastrocnemius and peroneal and soleus veins Patent and compressible bilateral great saphenous veins Ordering Physician: Geovani Lewis Performed By: Jacob Perales RVT Chest X-Ray 09/04/22 02:48 IMPRESSION: Slightly increased bibasilar airspace disease. Electronically Signed: Catherine Cortez MD at 3:30 EST , Physical Exam Const alert and no apparent distress Constitutional Narrative: Patient replies appropriately to questions, his gaze is directed to the right General Appearance: cooperative, well kempt and well developed Orientation / Consciousness: awake, oriented to person and oriented to place HEENT normocephalic, head/scalp atraumatic and moist oral mucous membranes Eyes PERRL, EOMs intact bilaterally and conjunctivae normal Neck supple, no JVD, thyroid normal and no carotid bruits General: trachea midline Resp normal respiratory effort, no retractions, no use of accessory muscles and clear to auscultation bilaterally Auscultation: Negative for rales, rhonchi or wheezes Cardio regular rate, regular rhythm, S1 normal heart sound, S2 normal heart sound, no murmurs, no rub and no gallops Cardio Narrative: Heart rate and rhythm is tachycardic GI normal to inspection, nondistended, normoactive bowel sounds, soft to palpation, non-tender and non-distended Extremity no clubbing, cyanosis or edema Skin no rashes or lesions noted General Skin Exam: no breakdown Neuro CN's II-XII intact bilaterally Neuro Narrative: Patient has left hemiplegia, patient's speech is slow and deliberate Sensorium / Orientation: awake and alert Psych Psych Narrative: Patient has flat affect Assessment & Plan Assessment/Plan (1) Acute right MCA stroke: PLAN: Plan 1. Acute right MCA stroke-patient will remain on aspirin, patient is being seen by PT and OT as well as speech therapy, patient will undergo PEG tube insertion tomorrow for nutritional support #2 Myocardial injury-secondary to large ischemic stroke, I believe that non-STEMI was ruled out #3 recently diagnosed esophageal cancer #4 hyponatremia-patient was taken off fluids for now, labs will be monitored, I will start administration of free water through his PEG tube #5 Chronic severe protein and caloric malnutrition-related to esophageal cancer as evidenced by a 20.2 pound weight loss in 2 to 3 months, less than 75% intake of estimated energy needs for more than a month and moderate fat and muscle loss to temporal and orbital regions-full liquid diet will be continued with consistency per speech therapy, Ensure Plus high-protein 3 times daily with meals has been ordered, patient will have a PEG tube insertion tomorrow which will provide nutritional support for the patient. Prognosis of his overall poor due to the patient's large stroke and overall poor medical condition. Charges/Coding Visit Charges Inpatient E&M: 73187 Subs Hosp L2
[2022-09-04] MEDS: Vancomycin IV 500 MG/100 ML BAG 100 MG IV (18:04)
[2022-09-05] VITALS (27 sets, daily range): BP systolic 107–129; BP diastolic 63–96; PULSE 95–120; RESP 12–24; TEMP 36.3–37.5; O2SAT 92–100; BMI 21.3
[2022-09-05] MEDS: 0.9% Saline Lock 10 ML Syringe IV (06:35)
[2022-09-05] MEDS: Vancomycin IV 500 MG/100 ML BAG 100 MG IV ×2 (06:45→19:45)
--- NOTE | 2022-09-05 08:49 | PCM.PN.INT ---
Assessment & Plan Assessment/Plan (1) Acute right MCA stroke: (2) Anemia: (3) History of esophageal cancer: PLAN: Plan RECOMMENDATIONS: 1. Start D5W given sodium and chloride levels. 2. Continue empiric antimicrobials. 3. Transfuse blood products as ordered. Check H&H posttransfusion. 4. Continue PPI therapy. 5. Wean supplemental oxygen to maintain saturations at or above 90%. 6. Encourage incentive spirometer use. IMPRESSIONS: 1. Fever with lactic acidemia While sepsis is certainly possible consideration, an acute transfusion reaction could also have elicited the same type of vital sign perturbations. Although the patient has an elevated lactate, this could be related to his underlying malignancy and potential hepatic metastatic disease. The patient is hemodynamically stable. For now, it is reasonable to continue empiric antimicrobials, while awaiting infectious work-up. In light of his history of dysphagia and abnormalities noted on chest imaging, aspiration pneumonia is certainly a possibility. 2. Pulmonary emboli and associated lower extremity DVT CTA chest demonstrated right-sided pulmonary emboli. Unfortunately, the patient is unable to be systemically anticoagulated due to anemia and recent CVA. Lower extremity Dopplers were positive for DVTs. Therefore, surgery was consulted for IVC filter placement. However, the patient declined to undergo the procedure. 3. Recently diagnosed esophageal cancer and associated dysphagia The patient was recently diagnosed with esophageal CA on an outpatient basis, but is yet to complete a staging work-up. It is unclear what type of treatment will be available to this individual given his severely decompensated state. 4. Hypernatremia/hyperchloremia Start D5W and monitor sodium and chloride levels closely. Increase free water flushes if needed. 5. Hyperbilirubinemia/transaminitis Clinical concern for underlying metastatic disease. Plan to continue supportive measures as noted above. GI is following to assist with medical management. This note was generated with [employer] dictation software. It may contain incorrect words, spelling, and punctuation that were not noted in checking the note before signing. Subjective Subjective The patient was seen and examined at the bedside this morning. Events from the last 24 hours have been reviewed. The patient is currently afebrile, hemodynamically stable and maintaining appropriate oxygen saturations on 3 L/min via nasal cannula. The patient decided to forego IVC filter placement yesterday. He did, however, undergo successful PEG tube placement. Hemoglobin this morning was noted to be 6.0 g/dL. Sodium was again elevated at 159 with a chloride of 128. Objective Data Objective Data The patient's most recent lab work, culture data and imaging studies have all been personally reviewed. Lower extremity Doppler study revealed bilateral lower extremity DVTs. Surface echocardiogram demonstrated normal LV size and function with an ejection fraction of 60%. Vital Signs: Vital Signs Temp Pulse Resp BP Pulse Ox O2 Del Method O2 Flow Rate 98.3 F 112 H 16 110/87 H 98 Nasal Cannula 3 09/05/22 07:00 09/05/22 07:00 09/05/22 07:00 09/05/22 07:00 09/05/22 07:00 09/05/22 08:00 09/05/22 08:00 FiO2 50 09/04/22 05:58 Oxygen Flow Rate (L/min) 3 Oxygen Delivery Method Nasal Cannula Weight: 124 lb 12.506 oz Body Mass Index (BMI) 21.3 Intake & Output: Intake and Output for Last 24 Hours 09/03/22 09/04/22 09/05/22 23:59 23:59 23:59 Intake Total 3368.50 / 3368.50 1692.33 / 1692.33 50 / 50 Output Total 825 / 825 1325 / 1325 200 / 200 Balance 2543.50 / 2543.50 367.33 / 367.33 -150 / -150 Medical Nutrition Assessment Dietitian: Malnutrition Criteria Met Start: 09/02/22 14:49 Freq: Status: Active Protocol: Document 09/02/22 14:49 ARACELI (Rec: 09/02/22 14:49 [id number]) Nutrition Malnutrition Evidence of Malnutrition Exists Yes Malnutrition (severe): Chronic Evidenced By Suboptimal Energy Intake ( Severe),Weight Loss (Severe), Physical Changes (Moderate) Intake Problem Inadequate Oral Intake Etiology related to esophageal cancer Signs/Symptoms as evidenced by patient report of Clear Liquid diet prior to admission and suboptimal appetite. Status Active Problem Clinical Problem Chronic Disease or Condition Related Malnutrition Etiology related to esophageal cancer Signs/Symptoms as evidenced by 20.2lbs (13.9% ) weight loss in 2-3 months, < 75% intake of estimated energy needs for >1 month and moderate fat and muscle loss to temporal and orbital regions. Status Active Problem Unintended Weight Loss Etiology related to predicted inadequate oral intake and esophageal cancer Signs/Symptoms as evidenced by 9.9lbs (7.3%) weight loss in 12 days. Status Inactive Problem Recommendation Dietitian Recommendations/Changes Continue Full Liquid diet with consistency per ST to manage swallowing difficulties. RD will order Ensure Plus High Protein TID with meals - thickened to mildly thick consistency Lab / Micro Data Attestation: I reviewed the patient's lab results. Result Diagrams: 09/05/22 10:07 09/05/22 10:07 Micro: Microbiology 08/31/22 12:56 Urine, Random Urine Culture - Final Streptococcus agalactiae (B) Radiography Diagnostic Testing: Radiology Impression Venous Doppler Study 09/03/22 21:06 Interpretation Summary Acute deep venous thrombosis right soleus vein Acute deep venous thrombosis left profunda and gastrocnemius and peroneal and soleus veins Patent and compressible bilateral great saphenous veins Ordering Physician: Geovani Lewis Performed By: Jacob Perales RVT Physical Exam Const alert General Appearance: ill appearing and frail HEENT normocephalic and head/scalp atraumatic Eyes PERRL and EOMs intact bilaterally Neck supple General: trachea midline Chest inspection of chest normal Resp Auscultation: diminished lung sounds; Negative for rales, rhonchi or wheezes Cardio S1 normal heart sound and S2 normal heart sound Rate: tachycardic GI normal to inspection, nondistended, normoactive bowel sounds Inspection: GI tube present Extremity no clubbing, cyanosis or edema Skin no rashes or lesions noted Neuro CN's II-XII intact bilaterally Psych Mood & Affect: flat affect Charges/Coding Visit Charges Inpatient E&M: 63995 Subs Hosp L2
[2022-09-05 10:17] LABS: Absolute Neutrophil Count 11.7 X10^3/uL (2.0-7.7); Basophil# 0.03 X10^3/uL; Basophil% 0.2 % (0-1); Hematocrit 19.4 % (40-54); Lymphocyte % 12.5 % (19-41); Mean Corp Hgb Conc 30.9 g/dL (32-36); Mean Corpuscular Hgb 28.4 pg (27.0-32.0); Mean Corpuscular Volume 91.9 fL (80-94); Monocyte# 0.65 X10^3/uL; Monocyte% 4.5 % (0-10); NRBC Flagged by Analyzer 0.7 % (0-5); Neutrophil # 11.74 X10^3/uL (2.7-7.7); Neutrophil % 81.3 % (47-70); Platelet Count 229 K/mm3 (150-450); RBC Distribution Width CV 16.2 % (11.6-14.6); RBC Distribution Width SD 53.3 fl (35.1-43.9); Red Blood Count 2.11 M/mm3 (4.6-6.2); White Blood Count 14.4 K/mm3 (4.4-11.0)
[2022-09-05 10:51] LABS: Anion Gap 8 (5-15); BUN 56 mg/dL (7-18); BUN/Creat Ratio 51.4 RATIO (10-20); Calcium,Total 8.1 mg/dL (8.5-10.1); Chloride 128 mmol/L (98-107); Creatinine, Serum 1.09 mg/dL (0.70-1.30); EST Glomerular Filtration Rate 76 mL/min (>60); Est Glom Filt Rate - Afr Amer 92 mL/min (>60); Estimated Creatinine Clearance 64.91 ml/min; Glucose 131 mg/dL (74-106); Potassium 3.4 mmol/L (3.5-5.1); Sodium Level 159 mmol/L (136-145)
--- NOTE | 2022-09-05 10:51 | CASEMGMT ---
Addendum entered by Preeti Gray 09/05/22 11:03: Nutrition notes sent via [facility] to [place]. Valerie RINCON Jig And Fixture Repairer Original Note: Discharge Outside Sales Advertising Executive This assembly instructions writer sent updates to [place] via [facility]. This assembly instructions writer will send nutrition notes when available. Valerie RINCON Jig And Fixture Repairer
--- NOTE | 2022-09-05 11:04 | CT_ITS ---
STUDY: CT ABDOMEN AND PELVIS WITH CONTRAST REASON FOR EXAM: Male, 52 years old. ESOPHAGEAL CANCER -- iv CONTRAST ONLY RADIATION DOSAGE (If Supplied By Facility): CTDIvol = ( 7.45 ) mGy, DLP = ( 597.99 ) mGycm TECHNIQUE: Transaxial images were obtained from the dome of the diaphragm to the symphysis pubis without oral contrast. IV 100mL Isovue-300 was administered. Sagittal and coronal images were reconstructed. Individualized dose optimization techniques were used for this CT. COMPARISON: None. FINDINGS: Patchy infiltrates at both lung bases worse on the right side with consolidation. Moderate sized pericardial effusion. Hepatomegaly. Multiple bilateral hepatic nodules in keeping with diffuse metastatic disease. Normal gallbladder and extrahepatic biliary system. Normal spleen. Normal pancreas. There is a 3.8 cm x 4 cm mass in the right adrenal gland. There is also evidence of a 1.5 signed by 1.5 cm mass in the left adrenal gland. Normal right kidney. Normal left kidney. Diffuse thickening of the gastric wall. Hiatal hernia. There is a 2.8 cm x 2.7 cm rounded heterogeneous mass lesion in the region of the splenic hilum. This may represent adenopathy. There is also evidence of a similar-appearing nodular density measuring 2.7 cm x 2.5 cm in the region of the tail of the pancreas. Normal small intestine. Normal colon. The appendix is visualized and appears normal. Normal abdominal aorta. Normal inferior vena cava. There is borderline retroperitoneal lymphadenopathy with enlarged nodes no greater than 10mm in the short axis diameter. A MILLER catheter is seen within the urinary bladder. Diffuse bladder wall thickening. Small amount of free fluid is seen in the posterior pelvis. Normal abdominal wall. Normal osseous structures. CT/Abdomen/Pelvis WITH Contrast IMPRESSION: Infiltrates at both lung bases more prominent on the right side with a small right pleural effusion. Hepatomegaly. Diffuse hepatic metastasis. Adenopathy in the region of the splenic hilum and peripancreatic region. Diffuse thickening of the gastric wall with evidence of a small hiatal hernia. Electronically Signed: Wilfred Nur MD at 12:18 EST ,
--- NOTE | 2022-09-05 11:56 | PCM.PROGNOTE ---
Subjective Subjective Patient is doing well today without any complaints from upper endoscopy yesterday with PEG placement. His not been having any bleeding around the site. They have been using the PEG tube without any problems. He also has been seeing speech therapy and they have been trialing him with some ice chips and water. Objective Data Objective Data Vital Signs: Vital Signs Temp Pulse Resp BP Pulse Ox O2 Del Method O2 Flow Rate 98.3 F 112 H 16 110/87 H 94 Nasal Cannula 2.5 09/05/22 07:00 09/05/22 07:00 09/05/22 07:00 09/05/22 07:00 09/05/22 08:02 09/05/22 08:02 09/05/22 08:02 FiO2 50 09/04/22 05:58 Oxygen Flow Rate (L/min) 2.5 Oxygen Delivery Method Nasal Cannula Weight: 124 lb 12.506 oz Body Mass Index (BMI) 21.3 Intake & Output: Intake and Output for Last 24 Hours 09/03/22 09/04/22 09/05/22 23:59 23:59 23:59 Intake Total 3368.50 / 3368.50 1692.33 / 1692.33 416 / 416 Output Total 825 / 825 1325 / 1325 200 / 200 Balance 2543.50 / 2543.50 367.33 / 367.33 216 / 216 Medical Nutrition Assessment Dietitian: Malnutrition Criteria Met Start: 09/02/22 14:49 Freq: Status: Active Protocol: Document 09/05/22 10:59 AG (Rec: 09/05/22 10:59 AG [id number]) Nutrition Malnutrition Evidence of Malnutrition Exists Yes Malnutrition (severe): Chronic Evidenced By Suboptimal Energy Intake ( Severe),Weight Loss (Severe), Physical Changes (Moderate) Intake Problem Inadequate Oral Intake Etiology related to esophageal cancer Signs/Symptoms as evidenced by patient report of Clear Liquid diet prior to admission and suboptimal appetite. Status Active Problem Clinical Problem Chronic Disease or Condition Related Malnutrition Etiology severe, chronic malnutrition related to esophageal cancer Signs/Symptoms as evidenced by 20.2lbs (13.9% ) weight loss in 2-3 months, < 75% intake of estimated energy needs for >1 month and moderate fat and muscle loss to temporal and orbital regions. Status Active Problem Unintended Weight Loss Etiology related to predicted inadequate oral intake and esophageal cancer Signs/Symptoms as evidenced by 9.9lbs (7.3%) weight loss in 12 days. Status Inactive Problem Recommendation Dietitian Recommendations/Changes NPO per COLLAR TAILOR; Via PEG- Jevity 1 .5 225mL bolus 5x/day w/ 100mL H2O flush before and after each bolus to provide 1688 calories, 80 g protein, and 1855mL fluid/day. Will start w / 125mL bolus and increase by 50mL w/ each bolus as tolerated until goal volume is achieved. Discussed w/ Dr. Macias, will continue 200mL H2O flush every 4 hours in addition to tube feeds d/t hypernatremia. Daily wts. Lab / Micro Data Result Diagrams: 09/05/22 10:07 09/05/22 10:07 Labs: Laboratory Results - last 24 hr 09/03/22 12:08: Crossmatch See Detail 09/05/22 10:07: WBC 14.4 H, RBC 2.11 L, Hgb 6.0 L*, Hct 19.4 L, MCV 91.9, MCH 28.4, MCHC 30.9 L, RDW Std Deviation 53.3 H, RDW Coeff of [place] 16.2 H, Plt Count 229, MPV 11.0, Immature Gran % (Auto) 1.500 H, Neut % (Auto) 81.3 H, Lymph % (Auto) 12.5 L, [place] % (Auto) 4.5, Eos % (Auto) 0.0, Baso % (Auto) 0.2, Absolute Neuts (auto) 11.7 H, Absolute Lymphs (auto) 1.80, Nucleated RBC % 0.7, Diff Path Review February09/05/22 10:07: Sodium 159 H, Potassium 3.4 L, Chloride 128 H*, Carbon Dioxide 23.0, Anion Gap 8, BUN 56 H, Creatinine 1.09, Estim Creat Clear Calc 64.91, Est GFR (MDRD) Af Amer 92, Est GFR (MDRD) Non-Af 76, BUN/Creatinine Ratio 51.4 H, Glucose 131 H, Calcium 8.1 L Micro: Microbiology 09/04/22 05:30 Urine, Catheterized Urine Culture - Preliminary Culture exhibits no growth. 08/31/22 12:56 Urine, Random Urine Culture - Final Streptococcus agalactiae (B) Radiography Diagnostic Testing: Radiology Impression Venous Doppler Study 09/03/22 21:06 Interpretation Summary Acute deep venous thrombosis right soleus vein Acute deep venous thrombosis left profunda and gastrocnemius and peroneal and soleus veins Patent and compressible bilateral great saphenous veins Ordering Physician: Geovani Lewis Performed By: Jacob Perales, RVT Physical Exam Const alert and no apparent distress Constitutional Narrative: Patient replies appropriately to questions, his gaze is directed to the right General Appearance: cooperative, well kempt and well developed Orientation / Consciousness: awake, oriented to person and oriented to place HEENT normocephalic, head/scalp atraumatic and moist oral mucous membranes Eyes PERRL, EOMs intact bilaterally and conjunctivae normal Neck supple, no JVD, thyroid normal and no carotid bruits General: trachea midline Resp normal respiratory effort, no retractions, no use of accessory muscles and clear to auscultation bilaterally Auscultation: Negative for rales, rhonchi or wheezes Cardio regular rate, regular rhythm, S1 normal heart sound, S2 normal heart sound, no murmurs, no rub and no gallops Cardio Narrative: Heart rate and rhythm is tachycardic GI normal to inspection, nondistended, normoactive bowel sounds, soft to palpation, non-tender and non-distended Extremity no clubbing, cyanosis or edema Skin no rashes or lesions noted General Skin Exam: no breakdown Neuro CN's II-XII intact bilaterally Neuro Narrative: Patient has left hemiplegia, patient's speech is slow and deliberate Sensorium / Orientation: awake and alert Psych Psych Narrative: Patient has flat affect Assessment & Plan Assessment/Plan (1) Dysphagia: PLAN: Severe esophageal dysphagia with oropharyngeal dysphagia secondary to esophageal cancer in recent acute CVA. He is okay to do trials of various amounts of liquids that should be able to go down with gravity despite him not having peristalsis secondary to an obstructing mass and infiltrative adenocarcinoma involving the distal two thirds of the esophagus extending into the cardia of the stomach. He can use PEG tube for feedings and medicine along with liquids. (2) History of esophageal cancer: PLAN: Dilation of the esophageal stricture from the esophageal cancer was accomplished yesterday with APC treatment to the areas of bleeding in the esophagus and the stomach. Poor prognosis. Charges/Coding Visit Charges Inpatient E&M: 40631 Subs Hosp L2
[2022-09-05] MEDS: Acetaminophen 650 MG/20 ML UDC GT (12:24)
[2022-09-05] MEDS: DiphenhydrAMINE 50 MG/ML Syringe 25 MG IV (13:23)
--- NOTE | 2022-09-05 14:43 | CASEMGMT ---
Discharge Oem Sales Manager This short story writer reached out to Afshan decker [place] and left a message and messaged in [facility] to see if patient is medically ready if patient can go over week. Valerie RINCON Athletic Coordinator
--- NOTE | 2022-09-05 15:36 | CASEMGMT ---
SW called patient's mom and left her a voice mail letting her know patient was accepted at [facility]. SW let her know that he will likely be here through the weekend. [facility] has not called back regarding whether or not patient can come over the weekend if he is ready. Therefore, patient cannot go over the weekend. Plan: [facility]. Patient will need a level of care from [facility]. Heike BONE
--- NOTE | 2022-09-05 16:07 | PN.HOSP_ITS ---
Subjective Subjective She was seen and examined today, his hemoglobin this morning was 6, I ordered transfusion of 2 units of packed red blood cells. Patient's sodium and chloride were elevated again today, I ordered to feedings to be started on the patient by dietary. I do not feel the patient is ready to go to an extended care facility at this time until his hemoglobin stabilizes. I talked briefly with Dr. Lomax by phone today and asked him if he would consider coming in to see the patient in consultation, he did not know whether his schedule would allow it but he would let me know. In the meantime I have obtained an abdomen and pelvis CT with IV contrast, this showed diffuse hepatic metastases along with adenopathy in the region of the splenic hilum and. Pancreatic region, there is diffuse thickening of the gastric wall noted also. Objective Data Objective Data Vital Signs: Vital Signs Temp Pulse Resp BP Pulse Ox O2 Del Method O2 Flow Rate 98 F 111 H 18 118/96 H 97 Room Air 2 09/05/22 15:30 09/05/22 15:30 09/05/22 15:30 09/05/22 15:30 09/05/22 15:30 09/05/22 15:30 09/05/22 14:30 FiO2 50 09/04/22 05:58 Oxygen Flow Rate (L/min) 2 Oxygen Delivery Method Room Air Weight: 56.6 kg Body Mass Index (BMI) 21.3 Intake & Output: Intake and Output for Last 24 Hours 09/03/22 09/04/22 09/05/22 23:59 23:59 23:59 Intake Total 3368.50 / 3368.50 1692.33 / 1692.33 1016 / 1016 Output Total 825 / 825 1325 / 1325 450 / 450 Balance 2543.50 / 2543.50 367.33 / 367.33 566 / 566 Medical Nutrition Assessment Dietitian: Malnutrition Criteria Met Start: 09/02/22 14:49 Freq: Status: Active Protocol: Document 09/05/22 10:59 AG (Rec: 09/05/22 10:59 AG [id number]) Nutrition Malnutrition Evidence of Malnutrition Exists Yes Malnutrition (severe): Chronic Evidenced By Suboptimal Energy Intake ( Severe),Weight Loss (Severe), Physical Changes (Moderate) Intake Problem Inadequate Oral Intake Etiology related to esophageal cancer Signs/Symptoms as evidenced by patient report of Clear Liquid diet prior to admission and suboptimal appetite. Status Active Problem Clinical Problem Chronic Disease or Condition Related Malnutrition Etiology severe, chronic malnutrition related to esophageal cancer Signs/Symptoms as evidenced by 20.2lbs (13.9% ) weight loss in 2-3 months, < 75% intake of estimated energy needs for >1 month and moderate fat and muscle loss to temporal and orbital regions. Status Active Problem Unintended Weight Loss Etiology related to predicted inadequate oral intake and esophageal cancer Signs/Symptoms as evidenced by 9.9lbs (7.3%) weight loss in 12 days. Status Inactive Problem Recommendation Dietitian Recommendations/Changes NPO per ROAD TEST EXAMINER; Via PEG- Jevity 1 .5 225mL bolus 5x/day w/ 100mL H2O flush before and after each bolus to provide 1688 calories, 80 g protein, and 1855mL fluid/day. Will start w / 125mL bolus and increase by 50mL w/ each bolus as tolerated until goal volume is achieved. Discussed w/ Dr. Macias, will continue 200mL H2O flush every 4 hours in addition to tube feeds d/t hypernatremia. Daily wts. Lab / Micro Data Result Diagrams: 09/05/22 10:07 09/05/22 10:07 Labs: Laboratory Results - last 24 hr 09/03/22 12:08: Crossmatch See Detail 09/03/22 12:08: Crossmatch See Detail 09/05/22 10:07: WBC 14.4 H, RBC 2.11 L, Hgb 6.0 L*, Hct 19.4 L, MCV 91.9, MCH 28.4, MCHC 30.9 L, RDW Std Deviation 53.3 H, RDW Coeff of Lexus 16.2 H, Plt Count 229, MPV 11.0, Immature Gran % (Auto) 1.500 H, Neut % (Auto) 81.3 H, Lymph % (Auto) 12.5 L, Schuyler % (Auto) 4.5, Eos % (Auto) 0.0, Baso % (Auto) 0.2, Absolute Neuts (auto) 11.7 H, Absolute Lymphs (auto) 1.80, Nucleated RBC % 0.7, Diff Path Review February09/05/22 10:07: Sodium 159 H, Potassium 3.4 L, Chloride 128 H*, Carbon Dioxide 23.0, Anion Gap 8, BUN 56 H, Creatinine 1.09, Estim Creat Clear Calc 64.91, Est GFR (MDRD) Af Amer 92, Est GFR (MDRD) Non-Af 76, BUN/Creatinine Ratio 51.4 H, Glucose 131 H, Calcium 8.1 L Micro: Microbiology 09/04/22 05:30 Urine, Catheterized Urine Culture - Preliminary Culture exhibits no growth. 08/31/22 12:56 Urine, Random Urine Culture - Final Streptococcus agalactiae (B) Radiography Diagnostic Testing: Radiology Impression Abdomen/Pelvis CT 09/05/22 11:04 IMPRESSION: Infiltrates at both lung bases more prominent on the right side with a small right pleural effusion. Hepatomegaly. Diffuse hepatic metastasis. Adenopathy in the region of the splenic hilum and peripancreatic region. Diffuse thickening of the gastric wall with evidence of a small hiatal hernia. Electronically Signed: Wilfred Nur MD at 12:18 EST , Physical Exam Narrative alert and no apparent distress Constitutional Narrative: Patient replies appropriately to questions, his gaze is directed to the right General Appearance: cooperative, well kempt and well developed Orientation / Consciousness: awake, oriented to person and oriented to place HEENT normocephalic, head/scalp atraumatic and moist oral mucous membranes Eyes PERRL, EOMs intact bilaterally and conjunctivae normal Neck supple, no JVD, thyroid normal and no carotid bruits General: trachea midline Resp normal respiratory effort, no retractions, no use of accessory muscles and clear to auscultation bilaterally Auscultation: Negative for rales, rhonchi or wheezes Cardio regular rate, regular rhythm, S1 normal heart sound, S2 normal heart sound, no murmurs, no rub and no gallops Cardio Narrative: Heart rate and rhythm is tachycardic GI normal to inspection, nondistended, normoactive bowel sounds, soft to palpation, non-tender and non-distended Extremity no clubbing, cyanosis or edema Skin no rashes or lesions noted General Skin Exam: no breakdown Neuro CN's II-XII intact bilaterally Neuro Narrative: Patient has left hemiplegia, patient's speech is slow and deliberate Sensorium / Orientation: awake and alert Psych Psych Narrative: Patient has flat affect Assessment & Plan Assessment/Plan (1) Stroke: (2) Acute right MCA stroke: PLAN: Plan 1. Acute right MCA stroke-patient will remain on aspirin, patient is being seen by PT and OT as well as speech therapy, tube feedings were started on the patient today #2 Myocardial injury-secondary to large ischemic stroke, I believe that non- STEMI was ruled out #3 recently diagnosed esophageal cancer involving the lower half of the esophagus to the GE junction #4 hypernatremia-patient was taken off fluids for now, labs will be monitored, patient is receiving free water through his PEG tube along with tube feedings, labs will be monitored #5 Chronic severe protein and caloric malnutrition-related to esophageal cancer as evidenced by a 20.2 pound weight loss in 2 to 3 months, less than 75% intake of estimated energy needs for more than a month and moderate fat and muscle loss to temporal and orbital regions-full liquid diet will be continued with consistency per speech therapy, Ensure Plus high-protein 3 times daily with meals has been ordered, patient will have a PEG tube insertion tomorrow which will provide nutritional support for the patient. #6 VTE of the lower extremity and PE-patient has refused an IVC filter according to general surgery. Prognosis of patient overall poor due to the patient's large stroke and overall poor medical condition. Charges/Coding Visit Charges Inpatient E&M: 29677 Subs Hosp L2
[2022-09-05] MEDS: Jevity 1.5. 1,000 ML Bottle 225 ML GT ×3 (16:31→22:05)
--- NOTE | 2022-09-05 16:38 | CASEMGMT ---
SW was informed patient's mom does not want patient to go to [facility]. DIAN called patient's mom, Layla. She was under the impression [facility] had a Hospice unit. DIAN told her [facility] does not have a Hospice unit. DIAN also told her patient does not want Hospice so halfway is the only option. Layla is in agreement with [facility]. Heike Muñoz DIRECTOR OF PERSONNEL LIZANDRO
--- NOTE | 2022-09-05 17:15 | CASEMGMT ---
NEGIN CM: Call placed to [facility] to confirm pt's acceptance. Per Blanca, pt's medicaid pending had been verified and they had been told by [facility] that per pt's healthcare sales representative, pt was not going to [facility]. See SW note re: clarification received from pt's mother. Discussed with Ludwin Elliott Design Tech including a review of current medications and PEG/TF need. Per Lexi, pt has been accepted for admission to [facility] and a bed is available pending pt being medically ready and level of care receipt. Geremias Parker RN CM
--- NOTE | 2022-09-05 17:21 | CON.PCM.ON_ITS ---
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 -Worsening hepatocellular injury and increasing bilirubin due to extensive liver metastases. -Prolonged aPTT and PT suggestive of possible liver failure, DIC and/or malnutrition. -Acute blood loss anemia secondary to esophageal tumor bleeding. -Acute right and left below knee DVTs. -Right sided pulmonary emboli. -Anticoagulation contraindicated because of bleeding. -Aspiration pneumonia--not requiring O2. -Recent stroke causing severe debility may be secondary to underlying hypercoagulable state. -KPS is 10-20% -Discussed with his mother--patient has non-curable malignancy and poor PS due to comorbid conditions listed above. She understands overall prognosis is poor (days to week or so) and I recommend hospice care with which she agrees. Plan: -Continue supportive measures for comfort/palliation including TFs, control of nausea, pain management if becomes needed and transfusional support. -Consult hospice for family discussion. -Above discussed with Dr. Macias. HPI Consult Data Date of Service:: 09/05/22 PCP / Referring Provider: Dr. Benitez Anguiano MD Attending: Dr. Gene Macias DO Chief Complaint Chief Complaint: Metastatic esophagus cancer History of Present Illness History of Present Illness: The patient Is a 52-year-old male Who underwent an evaluation for dysphagia on 08/21/2022. The report of the endoscopy is not available but biopsies were obtained from a GE junction mass. Tissue demonstrated an ulcerated, moderately differentiated adenocarcinoma. Specimen was negative for fungi and intestinal metaplasia. He was brought to the ED on 08/31 via squad after his parents called 911. Patient was found to be lying prone on presentation was not able to get up or walk. He was reportedly like that for several hours. MRI of the brain 09/01/2022 demonstrated a subacute cortical-based ischemic infarction involving the right temporal lobe, right insular lobe and the lenticulostriate branches of the right M1 segment. He also had increased troponin on presentation. DE was ruled out. Troponin increase was attributed to brain infarction. Patient was admitted and started on aspirin. He had a decline in respiratory status attributed to aspiration. CTA of the chest was done which demonstrated pulmonary emboli. He was transferred to the ICU. He declined IVC filter. At that time he was also observed to have an acute drop in hemoglobin from 7.3 g/dL down to 5.4 g/dL. He underwent an EGD. He was observed to have food in the middle third of the esophagus. It was retrieved. There was a partially obstructing, malignant esophageal tumor in the mid esophagus which was treated with argon beam coagulation. 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 There was also malignant appearing esophageal stenosis which was dilated. Red blood was observed in the entire stomach. Duodenal bulb was normal. PEG tube was placed. He received red blood cell transfusion. Hemoglobin increased to 7.9 g/dL. This morning hemoglobin was noted to decline to 6 g/dL. He continues on aspirin and PPI. On interview, he denies pain. He is aware that he is at [facility]. He has left-sided neglect. Advanced Directives Power of Fiberglass Roving Winder: No Living Will: No [facility] Medical History Contact with and (suspected) exposure to other viral communicable diseases Esophageal cancer Home Medications pantoprazole 40 mg tablet,delayed release 40 mg PO DAILY 08/31/22 [History Last Taken Unknown] Allergy/AdvReac Type Severity Reaction Status Date / Time No Known Allergies Allergy Verified 06/10/22 10:32 Social History household members: none Smoking Status: Current every day smoker tobacco type: cigarettes alcohol intake: current Physical Exam Const Constitutional Narrative: Cachectic appearing Lymph Lymphatic Narrative: No supraclavicular lymphadenopathy. Resp normal respiratory effort Cardio regular rhythm GI GI Narrative: PEG tube site appears clean and there is no bleeding. Vital Signs Temperature 97.5 F L 09/05/22 16:20 Temperature Source Temporal 09/05/22 16:20 Pulse Rate 110 H 09/05/22 16:20 Pulse Strength Weak (1+) 09/04/22 19:35 Respiratory Rate 16 09/05/22 16:20 Respiratory Effort Non-Labored 09/05/22 08:00 Respiratory Depth Normal 09/05/22 08:00 Respiratory Pattern Normal 09/05/22 08:00 Blood Pressure 123/87 H 09/05/22 16:20 Blood Pressure Mean 99 09/05/22 16:20 Blood Pressure Source Monitor 09/05/22 16:20 Blood Pressure Position Semi-Fowlers 09/05/22 16:20 Blood Pressure Location Right Arm 09/05/22 16:20 Baseline BP 125/93 09/04/22 13:30 Pulse Ox 96 09/05/22 16:05 Oxygen Delivery Method Room Air 09/05/22 16:20 Oxygen Flow Rate (L/min) 2 09/05/22 14:30 Fraction of Inspired Oxygen (FIO2) 50 09/04/22 05:58 Laboratory Results - last 24 hr 09/03/22 12:08: Crossmatch See Detail 09/03/22 12:08: Crossmatch See Detail 09/05/22 10:07: WBC 14.4 H, RBC 2.11 L, Hgb 6.0 L*, Hct 19.4 L, MCV 91.9, MCH 28.4, MCHC 30.9 L, RDW Std Deviation 53.3 H, RDW Coeff of Lexus 16.2 H, Plt Count 229, MPV 11.0, Immature Gran % (Auto) 1.500 H, Neut % (Auto) 81.3 H, Lymph % (Auto) 12.5 L, Hale % (Auto) 4.5, Eos % (Auto) 0.0, Baso % (Auto) 0.2, Absolute Neuts (auto) 11.7 H, Absolute Lymphs (auto) 1.80, Nucleated RBC % 0.7, Diff Path Review February09/05/22 10:07: Sodium 159 H, Potassium 3.4 L, Chloride 128 H*, Carbon Dioxide 23.0, Anion Gap 8, BUN 56 H, Creatinine 1.09, Estim Creat Clear Calc 64.91, Est GFR (MDRD) Af Amer 92, Est GFR (MDRD) Non-Af 76, BUN/Creatinine Ratio 51.4 H, Glucose 131 H, Calcium 8.1 L Microbiology 09/04/22 05:30 Urine, Catheterized Urine Culture - Preliminary Culture exhibits no growth. Diagnostic Data Head/Neck CTA 08/31/22 12:10 IMPRESSION: 1. Occlusion of the right MCA with evidence of acute infarction involving the right MCA distribution. 2. Additional findings detailed above. Electronically Signed: Vicente Quiles MD at 12:49 EST , ADDENDUM: 08/31/22 1259 IMPRESSION: 1. Occlusion of the right MCA with evidence of acute infarction involving the right MCA distribution. 2. Additional findings detailed above. N.B. : The above Results were Read Back by Vicente Quiles MD to Dr. Cody MD, and understanding confirmed on 08/31/2022 12:52:44 (ET). Electronically Signed: Vicente Quiles MD at 12:49 EST , Echocardiogram 08/31/22 19:37 Interpretation Summary Normal LV size. Left ventricular systolic function is normal. The estimated ejection fraction is 60 %. Localized effusion. There are no echocardiographic indications of cardiac tamponade. Contrast injection was performed. Ordering Physician: Mitchel Lucero Referring Physician: NO PCP Performed By: Ana Mishra RCS Brain MRI 09/01/22 06:43 IMPRESSION: 1. Subacute cortical based ischemic infarction involving the right temporal lobe, right insular lobe and the lenticulostriate branches of the right M1 segment. 2. No significant interval change when compared to CTA head of 08/31/2022. Electronically Signed: Tevin Cooney MD at 11:15 EST , Chest CTA 09/03/22 17:54 IMPRESSION: Small volume nonocclusive acute pulmonary emboli in the right lower lobe, right middle lobe and right upper lobe segmental and subsegmental pulmonary arteries. No evidence of right heart strain. 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 Multifocal pneumonia. Extremely dilated and patulous fluid-filled esophagus. N.B. : PCU nurse Stefany Stephen RN, confirmed on 09/03/2022 19:54:19 (ET) that the healthcare facility has received the radiology report. Electronically Signed: Chavo Thakur MD at 19:50 EST , Venous Doppler Study 09/03/22 21:06 Interpretation Summary Acute deep venous thrombosis right soleus vein Acute deep venous thrombosis left profunda and gastrocnemius and peroneal and soleus veins Patent and compressible bilateral great saphenous veins Ordering Physician: Geovani Lewis Performed By: Jacob Perales, RVT Chest X-Ray 09/04/22 02:48 IMPRESSION: Slightly increased bibasilar airspace disease. Electronically Signed: Catherine Cortez MD at 3:30 EST , Abdomen/Pelvis CT 09/05/22 11:04 IMPRESSION: Infiltrates at both lung bases more prominent on the right side with a small right pleural effusion. Hepatomegaly. Diffuse hepatic metastasis. Adenopathy in the region of the splenic hilum and peripancreatic region. Diffuse thickening of the gastric wall with evidence of a small hiatal hernia. Electronically Signed: Wilfred Nur MD at 12:18 EST ,
--- NOTE | 2022-09-05 19:07 | CASEMGMT ---
Social Work PCU PASRR screen completed via [employer] system, and to be submitted with level of care request when ready for LOC submission. Message to Dr. Macias, that should patient become ready for transfer to nursing facility, would need NF transfer orders completed for Medicaid level of care submission. Per physician, patient not yet ready for discharge. Plan: [facility], intermediate level of care under pending Medicaid. Level of care will still need to be completed. Social Work to follow and assist as indicated. -MIRELLA Ellis, SECURITY CONTROL ROOM OFFICER
--- NOTE | 2022-09-05 19:53 | PCM.RX.CS ---
Consult Pharmacy has been consulted to manage selected antiobiotic: Vancomycin Type of Consult: Follow-up Labs: Sodium 159 mmol/L (136-145) H 09/05/22 10:07 Potassium 3.4 mmol/L (3.5-5.1) L 09/05/22 10:07 Chloride 128 mmol/L (98-107) H* 09/05/22 10:07 Carbon Dioxide 23.0 mmol/L (21.0-32.0) 09/05/22 10:07 Anion Gap 8 (5-15) 09/05/22 10:07 BUN 56 mg/dL (7-18) H 09/05/22 10:07 Creatinine 1.09 mg/dL (0.70-1.30) 09/05/22 10:07 Est GFR (MDRD) Af Amer 92 mL/min (>60) 09/05/22 10:07 Est GFR (MDRD) Non-Af 76 mL/min (>60) 09/05/22 10:07 BUN/Creatinine Ratio 51.4 RATIO (10-20) H 09/05/22 10:07 Glucose 131 mg/dL (74-106) H 09/05/22 10:07 Vancomycin Trough 12.0 ug/mL (5.0-15.0) 09/05/22 17:08 Microbiology: Microbiology 09/04/22 05:30 Urine, Catheterized Urine Culture - Preliminary Culture exhibits no growth. 08/31/22 12:56 Urine, Random Urine Culture - Final Streptococcus agalactiae (B) Goal Trough: 15-20 mcg/mL Pharmacy Plan for Drug Dosing: VANCOMYCIN LEVEL RECEIVED Current Vancomycin Dose: 500MG IV Q12H Number of Doses Received: 3 Vancomycin Level: 12 Hours Since Last Dose: 11.5 Renal Function: 1.09 Renal Function Trend: IMPROVING Lab/Micro: PENDING Vancomycin Plan/Comments: Patient had a trough drawn which resulted in a value of 12 (goal 15-20). Will increase dose slightly to 750mg IV Q12hr to start 09/05/22 @2100 Pending Level: 09/07/22 @0830, prior to 4th dose of new regimen per protocol Pharmacy Service will continue to monitor and adjust dosing as required.
--- NOTE | 2022-09-05 22:06 | PCM.RX.CS ---
Consult Pharmacy has been consulted to manage selected antiobiotic: Vancomycin Type of Consult: Follow-up Labs: Sodium 159 mmol/L (136-145) H 09/05/22 10:07 Potassium 3.4 mmol/L (3.5-5.1) L 09/05/22 10:07 Chloride 128 mmol/L (98-107) H* 09/05/22 10:07 Carbon Dioxide 23.0 mmol/L (21.0-32.0) 09/05/22 10:07 Anion Gap 8 (5-15) 09/05/22 10:07 BUN 56 mg/dL (7-18) H 09/05/22 10:07 Creatinine 1.09 mg/dL (0.70-1.30) 09/05/22 10:07 Est GFR (MDRD) Af Amer 92 mL/min (>60) 09/05/22 10:07 Est GFR (MDRD) Non-Af 76 mL/min (>60) 09/05/22 10:07 BUN/Creatinine Ratio 51.4 RATIO (10-20) H 09/05/22 10:07 Glucose 131 mg/dL (74-106) H 09/05/22 10:07 Vancomycin Trough 12.0 ug/mL (5.0-15.0) 09/05/22 17:08 Microbiology: Microbiology 09/04/22 05:30 Urine, Catheterized Urine Culture - Preliminary Culture exhibits no growth. 08/31/22 12:56 Urine, Random Urine Culture - Final Streptococcus agalactiae (B) Pharmacy Plan for Drug Dosing: Pharmacy Service will continue to monitor and adjust dosing as requiED\ 500MG DOSE GIVEN 09/05 @ 1945 AFTER TROUGH DRAWN, RESCHEDULED 750MG DOSE AND TROUGH TIMES ADDORDINGLY Follow-Up Labs: Trough Vancomycin Labs to be done on [date and time ordered]: 09/07 @ 2029
[2022-09-06 00:45] VITALS: BP 119/81; PULSE 100; RESP 20; TEMP 37.3; O2SAT 96
[2022-09-06 01:37] LABS: Hematocrit 27.3 % (40-54); Hemoglobin 8.8 g/dL (13.0-16.5)
[2022-09-06 03:00] VITALS: PULSE 95
[2022-09-06 03:44] VITALS: BP 109/83; PULSE 101; RESP 20; TEMP 37.6; O2SAT 96
[2022-09-06 06:55] LABS: Absolute Lymphocyte Count 1.71 X10^3/uL (0.83-4.51); Absolute Neutrophil Count 12.1 X10^3/uL (2.0-7.7); Basophil# 0.04 X10^3/uL; Basophil% 0.3 % (0-1); Eosinophil# 0.03 X10^3/uL; Eosinophils% 0.2 % (0-5); Hematocrit 25.8 % (40-54); Hemoglobin 8.6 g/dL (13.0-16.5); Lymphocyte # 1.71 X10^3/ul (0.83-4.51); Lymphocyte % 11.5 % (19-41); Mean Corp Hgb Conc 33.3 g/dL (32-36); Mean Corpuscular Volume 89.9 fL (80-94); Mean Platelet Vol. 11.7 fl (6.2-12.0); Monocyte# 0.67 X10^3/uL; Monocyte% 4.5 % (0-10); NRBC Flagged by Analyzer 1.3 % (0-5); Neutrophil # 12.13 X10^3/uL (2.7-7.7); Neutrophil % 81.2 % (47-70); Platelet Count 188 K/mm3 (150-450); RBC Distribution Width CV 15.6 % (11.6-14.6); RBC Distribution Width SD 49.1 fl (35.1-43.9); Red Blood Count 2.87 M/mm3 (4.6-6.2); White Blood Count 14.9 K/mm3 (4.4-11.0)
[2022-09-06] MEDS: Jevity 1.5. 1,000 ML Bottle 225 ML GT ×3 (06:57→15:13)
--- NOTE | 2022-09-06 07:29 | PN.CC_ITS ---
Assessment & Plan Assessment/Plan (1) Acute right MCA stroke: (2) Anemia: (3) History of esophageal cancer: PLAN: Plan RECOMMENDATIONS: 1. Continue D5W, pending results of chemistry profile from this morning. 2. Continue empiric antimicrobials. 3. Continue to monitor H&H and transfuse if hemoglobin drops below 7 g/dL. 4. Continue PPI therapy. 5. Encourage incentive spirometer use. 6. Given the patient's lack of further ICU or pulmonary needs, will sign off. Please call with any additional questions. IMPRESSIONS: 1. Fever with lactic acidemia While sepsis is certainly possible consideration, an acute transfusion reaction could also have elicited the same type of vital sign perturbations. Although the patient has an elevated lactate, this could be related to his underlying malignancy and potential hepatic metastatic disease. The patient is hemodynamically stable. For now, it is reasonable to continue empiric antimicrobials, while awaiting infectious work-up. In light of his history of dysphagia and abnormalities noted on chest imaging, aspiration pneumonia is certainly a possibility. 2. Pulmonary emboli and associated lower extremity DVT CTA chest demonstrated right-sided pulmonary emboli. Unfortunately, the patient is unable to be systemically anticoagulated due to anemia and recent CVA. Lower extremity Dopplers were positive for DVTs. Therefore, surgery was consulted for IVC filter placement. However, the patient declined to undergo the procedure. 3. Recently diagnosed esophageal cancer and associated dysphagia The patient was recently diagnosed with esophageal CA on an outpatient basis, but is yet to complete a staging work-up. It is unclear what type of treatment will be available to this individual given his severely decompensated state. 4. Hypernatremia/hyperchloremia Continue D5W, pending results of chemistry profile from this morning. 5. Hyperbilirubinemia/transaminitis Clinical concern for underlying metastatic disease. Plan to continue supportive measures as noted above. GI is following to assist with medical management. This note was generated with [employer] dictation software. It may contain incorrect words, spelling, and punctuation that were not noted in checking the note before signing. Subjective Subjective The patient was seen and examined at the bedside this morning. Events from the last 24 hours have been reviewed. The patient is currently afebrile, hemodynamically stable and maintaining appropriate oxygen saturations on room air. Hemoglobin is stable this morning at 8.6 g/dL. Chemistry profile is pending. The patient reports some discomfort at his Rico catheter insertion site. Objective Data Objective Data The patient's most recent lab work, culture data and imaging studies have all been personally reviewed. Lower extremity Doppler study revealed bilateral lower extremity DVTs. Surface echocardiogram demonstrated normal LV size and function with an ejection fraction of 60%. Vital Signs: Vital Signs Temp Pulse Resp BP Pulse Ox O2 Del Method O2 Flow Rate 99.6 F H 101 H 20 H 109/83 H 96 Room Air 3 09/06/22 03:44 09/06/22 03:44 09/06/22 03:44 09/06/22 03:44 09/06/22 03:44 09/06/22 03:58 09/05/22 16:00 FiO2 50 09/04/22 05:58 Oxygen Flow Rate (L/min) 3 Oxygen Delivery Method Room Air Weight: 128 lb 4.944 oz Body Mass Index (BMI) 21.3 Intake & Output: Intake and Output for Last 24 Hours 09/04/22 09/05/22 09/06/22 23:59 23:59 23:59 Intake Total 1692.33 / 1692.33 2741 / 2741 1225 / 1225 Output Total 1325 / 1325 650 / 650 450 / 450 Balance 367.33 / 367.33 2091 / 2091 775 / 775 Medical Nutrition Assessment Dietitian: Malnutrition Criteria Met Start: 09/02/22 14:49 Freq: Status: Active Protocol: Document 09/05/22 10:59 AG (Rec: 09/05/22 10:59 AG [id number]) Nutrition Malnutrition Evidence of Malnutrition Exists Yes Malnutrition (severe): Chronic Evidenced By Suboptimal Energy Intake ( Severe),Weight Loss (Severe), Physical Changes (Moderate) Intake Problem Inadequate Oral Intake Etiology related to esophageal cancer Signs/Symptoms as evidenced by patient report of Clear Liquid diet prior to admission and suboptimal appetite. Status Active Problem Clinical Problem Chronic Disease or Condition Related Malnutrition Etiology severe, chronic malnutrition related to esophageal cancer Signs/Symptoms as evidenced by 20.2lbs (13.9% ) weight loss in 2-3 months, < 75% intake of estimated energy needs for >1 month and moderate fat and muscle loss to temporal and orbital regions. Status Active Problem Unintended Weight Loss Etiology related to predicted inadequate oral intake and esophageal cancer Signs/Symptoms as evidenced by 9.9lbs (7.3%) weight loss in 12 days. Status Inactive Problem Recommendation Dietitian Recommendations/Changes NPO per [employer]; Via PEG- Jevity 1 .5 225mL bolus 5x/day w/ 100mL H2O flush before and after each bolus to provide 1688 calories, 80 g protein, and 1855mL fluid/day. Will start w / 125mL bolus and increase by 50mL w/ each bolus as tolerated until goal volume is achieved. Discussed w/ Dr. Macias, will continue 200mL H2O flush every 4 hours in addition to tube feeds d/t hypernatremia. Daily wts. Lab / Micro Data Attestation: I reviewed the patient's lab results. Result Diagrams: 09/06/22 06:20 09/05/22 10:07 Labs: Laboratory Results - last 24 hr 09/03/22 12:08: Crossmatch See Detail 09/03/22 12:08: Crossmatch See Detail 09/05/22 10:07: WBC 14.4 H, RBC 2.11 L, Hgb 6.0 L*, Hct 19.4 L, MCV 91.9, MCH 28.4, MCHC 30.9 L, RDW Std Deviation 53.3 H, RDW Coeff of Lex[place] 16.2 H, Plt Count 229, MPV 11.0, Immature Gran % (Auto) 1.500 H, Neut % (Auto) 81.3 H, Lymph % (Auto) 12.5 L, [place] % (Auto) 4.5, Eos % (Auto) 0.0, Baso % (Auto) 0.2, Absolute Neuts (auto) 11.7 H, Absolute Lymphs (auto) 1.80, Nucleated RBC % 0.7, Diff Path Review February09/05/22 10:07: Sodium 159 H, Potassium 3.4 L, Chloride 128 H*, Carbon Dioxide 23.0, Anion Gap 8, BUN 56 H, Creatinine 1.09, Estim Creat Clear Calc 64.91, Est GFR (MDRD) Af Amer 92, Est GFR (MDRD) Non-Af 76, BUN/Creatinine Ratio 51.4 H, Glucose 131 H, Calcium 8.1 L 09/05/22 17:08: Vancomycin Trough 12.0 09/06/22 01:30: Hgb 8.8 L, Hct 27.3 L 09/06/22 06:20: WBC 14.9 H, RBC 2.87 L, Hgb 8.6 L, Hct 25.8 L, MCV 89.9, MCH 30.0, MCHC 33.3 D, RDW Std Deviation 49.1 H, RDW Coeff of [place] 15.6 H, Plt Count 188, MPV 11.7, Immature Gran % (Auto) 2.300 H, Neut % (Auto) 81.2 H, Lymph % (Auto) 11.5 L, [place] % (Auto) 4.5, Eos % (Auto) 0.2, Baso % (Auto) 0.3, Absolute Neuts (auto) 12.1 H, Absolute Lymphs (auto) 1.71, Nucleated RBC % 1.3 Micro: Microbiology 09/04/22 05:35 Blood Culture (Wb) - Anticubital Left Blood Culture - Preliminary No growth in 48 hours. 09/04/22 05:40 Blood Culture (Wb) - Left Hand Blood Culture - Preliminary No growth in 48 hours. 09/04/22 05:30 Urine, Catheterized Urine Culture - Preliminary Culture exhibits no growth. 08/31/22 12:56 Urine, Random Urine Culture - Final Streptococcus agalactiae (B) Radiography Diagnostic Testing: Radiology Impression Abdomen/Pelvis CT 09/05/22 11:04 IMPRESSION: Infiltrates at both lung bases more prominent on the right side with a small right pleural effusion. Hepatomegaly. Diffuse hepatic metastasis. Adenopathy in the region of the splenic hilum and peripancreatic region. Diffuse thickening of the gastric wall with evidence of a small hiatal hernia. Electronically Signed: Wilfred Nur MD at 12:18 EST , Physical Exam Const alert Constitutional Narrative: Fatigued in appearance. General Appearance: ill appearing and frail HEENT normocephalic and head/scalp atraumatic Eyes PERRL and EOMs intact bilaterally Neck supple General: trachea midline Chest inspection of chest normal Resp Effort and Inspection: tachypneic Auscultation: diminished lung sounds; Negative for rales, rhonchi or wheezes Cardio S1 normal heart sound and S2 normal heart sound Rate: tachycardic GI normal to inspection, nondistended, normoactive bowel sounds Inspection: GI tube present Extremity no clubbing, cyanosis or edema Skin no rashes or lesions noted Neuro CN's II-XII intact bilaterally Neuro Narrative: Flaccid left-sided paralysis Psych Mood & Affect: flat affect Charges/Coding Visit Charges Inpatient E&M: 85754 Subs Hosp L2
--- NOTE | 2022-09-06 07:34 | NURSING ---
pt noted with 120 ml residual 200ml flush held at this time.
[2022-09-06 07:52] LABS: Anion Gap 7 (5-15); BUN 51 mg/dL (7-18); BUN/Creat Ratio 52.4 RATIO (10-20); Calcium,Total 7.7 mg/dL (8.5-10.1); Chloride 123 mmol/L (98-107); Creatinine, Serum 0.97 mg/dL (0.70-1.30); EST Glomerular Filtration Rate 87 mL/min (>60); Est Glom Filt Rate - Afr Amer 105 mL/min (>60); Glucose 137 mg/dL (74-106); Potassium 3.1 mmol/L (3.5-5.1); Sodium Level 154 mmol/L (136-145)
[2022-09-06 07:54] VITALS: O2SAT 91
--- NOTE | 2022-09-06 11:09 | CASEMGMT ---
Social Work SW spoke w/physician, he tried to make referral to hospice and was put on hold for 22 minutes, then spoke w/someone and was to get call back, did not get call back. SW called, made referral to Hospice. Danielle is to be here between 1-1:30pm. SW let pt know. SW called pt's mother with his permission, was able to reach her. She will be here. SW let bedside RN know of time of visit, let physician know as well. DEJON Mancilla
[2022-09-06] MEDS: Aspirin 81 MG TAB.CHEW PO (11:25)
--- NOTE | 2022-09-06 15:25 | PN.HOSP_ITS ---
Subjective Subjective Patient was seen and examined this morning, his hemoglobin appears to be stable as compared with last night, I talked him briefly about talking with hospice, he does not object to this and so I had hospice see him today and hospiced also talked with his mother. [facility]. They say that the mother is in favor of this also. Objective Data Objective Data Vital Signs: Vital Signs Temp Pulse Resp BP Pulse Ox O2 Del Method O2 Flow Rate 99.6 F H 101 H 20 H 109/83 H 91 Room Air 3 09/06/22 03:44 09/06/22 03:44 09/06/22 03:44 09/06/22 03:44 09/06/22 07:54 09/06/22 07:54 09/05/22 16:00 FiO2 50 09/04/22 05:58 Oxygen Flow Rate (L/min) 3 Oxygen Delivery Method Room Air Weight: 58.2 kg Body Mass Index (BMI) 21.3 Intake & Output: Intake and Output for Last 24 Hours 09/04/22 09/05/22 09/06/22 23:59 23:59 23:59 Intake Total 1692.33 / 1692.33 2741 / 2741 2390 / 2390 Output Total 1325 / 1325 650 / 650 740 / 740 Balance 367.33 / 367.33 2091 / 2091 1650 / 1650 Medical Nutrition Assessment Dietitian: Malnutrition Criteria Met Start: 09/02/22 14:49 Freq: Status: Active Protocol: Document 09/05/22 10:59 AG (Rec: 09/05/22 10:59 AG [id number]) Nutrition Malnutrition Evidence of Malnutrition Exists Yes Malnutrition (severe): Chronic Evidenced By Suboptimal Energy Intake ( Severe),Weight Loss (Severe), Physical Changes (Moderate) Intake Problem Inadequate Oral Intake Etiology related to esophageal cancer Signs/Symptoms as evidenced by patient report of Clear Liquid diet prior to admission and suboptimal appetite. Status Active Problem Clinical Problem Chronic Disease or Condition Related Malnutrition Etiology severe, chronic malnutrition related to esophageal cancer Signs/Symptoms as evidenced by 20.2lbs (13.9% ) weight loss in 2-3 months, < 75% intake of estimated energy needs for >1 month and moderate fat and muscle loss to temporal and orbital regions. Status Active Problem Unintended Weight Loss Etiology related to predicted inadequate oral intake and esophageal cancer Signs/Symptoms as evidenced by 9.9lbs (7.3%) weight loss in 12 days. Status Inactive Problem Recommendation Dietitian Recommendations/Changes NPO per MINERALOGY TEACHER; Via PEG- Jevity 1 .5 225mL bolus 5x/day w/ 100mL H2O flush before and after each bolus to provide 1688 calories, 80 g protein, and 1855mL fluid/day. Will start w / 125mL bolus and increase by 50mL w/ each bolus as tolerated until goal volume is achieved. Discussed w/ Dr. Macias, will continue 200mL H2O flush every 4 hours in addition to tube feeds d/t hypernatremia. Daily wts. Lab / Micro Data Result Diagrams: 09/06/22 06:20 09/06/22 06:20 Labs: Laboratory Results - last 24 hr 09/03/22 12:08: Crossmatch See Detail 09/03/22 12:08: Crossmatch See Detail 09/05/22 17:08: Vancomycin Trough 12.0 09/06/22 01:30: Hgb 8.8 L, Hct 27.3 L 09/06/22 06:20: WBC 14.9 H, RBC 2.87 L, Hgb 8.6 L, Hct 25.8 L, MCV 89.9, MCH 30.0, MCHC 33.3 D, RDW Std Deviation 49.1 H, RDW Coeff of Lexus 15.6 H, Plt Count 188, MPV 11.7, Immature Gran % (Auto) 2.300 H, Neut % (Auto) 81.2 H, Lymph % (A uto) 11.5 L, [place] % (Auto) 4.5, Eos % (Auto) 0.2, Baso % (Auto) 0.3, Absolute Neuts (auto) 12.1 H, Absolute Lymphs (auto) 1.71, Nucleated RBC % 1.3 09/06/22 06:20: Sodium 154 H, Potassium 3.1 L, Chloride 123 H, Carbon Dioxide 24.0, Anion Gap 7, BUN 51 H, Creatinine 0.97, Estim Creat Clear Calc 75.00, Est GFR (MDRD) Af Amer 105, Est GFR (MDRD) Non-Af 87, BUN/Creatinine Ratio 52.4 H, Glucose 137 H, Calcium 7.7 L Micro: Microbiology 09/04/22 05:30 Urine, Catheterized Urine Culture - Final Culture exhibits no growth. 09/04/22 05:35 Blood Culture (Wb) - Anticubital Left Blood Culture - Preliminary No growth in 48 hours. 09/04/22 05:40 Blood Culture (Wb) - Left Hand Blood Culture - Preliminary No growth in 48 hours. 08/31/22 12:56 Urine, Random Urine Culture - Final Streptococcus agalactiae (B) Physical Exam Narrative alert and no apparent distress Constitutional Narrative: Patient replies appropriately to questions, his gaze is directed to the right General Appearance: cooperative, well kempt and well developed Orientation / Consciousness: awake, oriented to person and oriented to place HEENT normocephalic, head/scalp atraumatic and moist oral mucous membranes Eyes PERRL, EOMs intact bilaterally and conjunctivae normal Neck supple, no JVD, thyroid normal and no carotid bruits General: trachea midline Resp normal respiratory effort, no retractions, no use of accessory muscles and clear to auscultation bilaterally Auscultation: Negative for rales, rhonchi or wheezes Cardio regular rate, regular rhythm, S1 normal heart sound, S2 normal heart sound, no murmurs, no rub and no gallops Cardio Narrative: Heart rate and rhythm is tachycardic GI normal to inspection, nondistended, normoactive bowel sounds, soft to palpation, non-tender and non-distended Extremity no clubbing, cyanosis or edema Skin no rashes or lesions noted General Skin Exam: no breakdown Neuro CN's II-XII intact bilaterally Neuro Narrative: Patient has left hemiplegia, patient's speech is slow and deliberate Sensorium / Orientation: awake and alert Psych Psych Narrative: Patient has flat affect Assessment & Plan Assessment/Plan (1) Acute right MCA stroke: (2) Stroke: PLAN: Plan 1. Acute right MCA stroke-patient will remain on aspirin, patient is being seen by PT and OT as well as speech therapy, tube feedings were started on the patient #2 Myocardial injury-secondary to large ischemic stroke, I believe that non- STEMI was ruled out #3 recently diagnosed esophageal cancer involving the lower half of the esophagus to the GE junction #4 hypernatremia-patient was taken off fluids for now, labs will be monitored, patient is receiving free water through his PEG tube along with tube feedings, labs will be monitored, sodium and chloride are somewhat better than yesterday. #5 Chronic severe protein and caloric malnutrition-related to esophageal cancer as evidenced by a 20.2 pound weight loss in 2 to 3 months, less than 75% intake of estimated energy needs for more than a month and moderate fat and muscle loss to temporal and orbital regions-full liquid diet will be continued with consistency per speech therapy, Ensure Plus high-protein 3 times daily with meals has been ordered, patient will have a PEG tube insertion tomorrow which will provide nutritional support for the patient. #6 VTE of the lower extremity and PE-patient has refused an IVC filter according to general surgery. #7 hypokalemia-I will give the patient supplemental potassium through his PEG tube Prognosis of patient overall poor due to the patient's large stroke and overall poor medical condition. Patient has been accepted by hospice, they will work on providing an inpatient hospice bed for the patient. Charges/Coding Visit Charges Inpatient E&M: 47715 Subs Hosp L2
--- NOTE | 2022-09-06 15:29 | PN_ITS ---
Subjective Subjective Patient underwent upper endoscopy with PEG tube placement. He was discovered to have large circumferential esophageal cancer encompassing the last third of her esophagus extending into the stomach. Objective Data Objective Data Vital Signs: Vital Signs Temp Pulse Resp BP Pulse Ox O2 Del Method O2 Flow Rate 99.6 F H 101 H 20 H 109/83 H 91 Room Air 3 09/06/22 03:44 09/06/22 03:44 09/06/22 03:44 09/06/22 03:44 09/06/22 07:54 09/06/22 07:54 09/05/22 16:00 FiO2 50 09/04/22 05:58 Oxygen Flow Rate (L/min) 3 Oxygen Delivery Method Room Air Weight: 128 lb 4.944 oz Body Mass Index (BMI) 21.3 Intake & Output: Intake and Output for Last 24 Hours 09/04/22 09/05/22 09/06/22 23:59 23:59 23:59 Intake Total 1692.33 / 1692.33 2741 / 2741 2390 / 2390 Output Total 1325 / 1325 650 / 650 740 / 740 Balance 367.33 / 367.33 2091 / 2091 1650 / 1650 Medical Nutrition Assessment Dietitian: Malnutrition Criteria Met Start: 09/02/22 14:49 Freq: Status: Active Protocol: Document 09/05/22 10:59 AG (Rec: 09/05/22 10:59 AG [id number]) Nutrition Malnutrition Evidence of Malnutrition Exists Yes Malnutrition (severe): Chronic Evidenced By Suboptimal Energy Intake ( Severe),Weight Loss (Severe), Physical Changes (Moderate) Intake Problem Inadequate Oral Intake Etiology related to esophageal cancer Signs/Symptoms as evidenced by patient report of Clear Liquid diet prior to admission and suboptimal appetite. Status Active Problem Clinical Problem Chronic Disease or Condition Related Malnutrition Etiology severe, chronic malnutrition related to esophageal cancer Signs/Symptoms as evidenced by 20.2lbs (13.9% ) weight loss in 2-3 months, < 75% intake of estimated energy needs for >1 month and moderate fat and muscle loss to temporal and orbital regions. Status Active Problem Unintended Weight Loss Etiology related to predicted inadequate oral intake and esophageal cancer Signs/Symptoms as evidenced by 9.9lbs (7.3%) weight loss in 12 days. Status Inactive Problem Recommendation Dietitian Recommendations/Changes NPO per SENIOR [employer] ADMINISTRATOR; Via PEG- Jevity 1 .5 225mL bolus 5x/day w/ 100mL H2O flush before and after each bolus to provide 1688 calories, 80 g protein, and 1855mL fluid/day. Will start w / 125mL bolus and increase by 50mL w/ each bolus as tolerated until goal volume is achieved. Discussed w/ Dr. Macias, will continue 200mL H2O flush every 4 hours in addition to tube feeds d/t hypernatremia. Daily wts. Lab / Micro Data Result Diagrams: 09/06/22 06:20 09/06/22 06:20 Labs: Laboratory Results - last 24 hr 09/03/22 12:08: Crossmatch See Detail 09/03/22 12:08: Crossmatch See Detail 09/05/22 17:08: Vancomycin Trough 12.0 09/06/22 01:30: Hgb 8.8 L, Hct 27.3 L 09/06/22 06:20: WBC 14.9 H, RBC 2.87 L, Hgb 8.6 L, Hct 25.8 L, MCV 89.9, MCH 3 0.0, MCHC 33.3 D, RDW Std Deviation 49.1 H, RDW Coeff of Lexus 15.6 H, Plt Count 188, MPV 11.7, Immature Gran % (Auto) 2.300 H, Neut % (Auto) 81.2 H, Lymph % (Auto) 11.5 L, [place] % (Auto) 4.5, Eos % (Auto) 0.2, Baso % (Auto) 0.3, Absolute Neuts (auto) 12.1 H, Absolute Lymphs (auto) 1.71, Nucleated RBC % 1.3 09/06/22 06:20: Sodium 154 H, Potassium 3.1 L, Chloride 123 H, Carbon Dioxide 24.0, Anion Gap 7, BUN 51 H, Creatinine 0.97, Estim Creat Clear Calc 75.00, Est GFR (MDRD) Af Amer 105, Est GFR (MDRD) Non-Af 87, BUN/Creatinine Ratio 52.4 H, Glucose 137 H, Calcium 7.7 L Micro: Microbiology 09/04/22 05:30 Urine, Catheterized Urine Culture - Final Culture exhibits no growth. 09/04/22 05:35 Blood Culture (Wb) - Anticubital Left Blood Culture - Prelim inary No growth in 48 hours. 09/04/22 05:40 Blood Culture (Wb) - Left Hand Blood Culture - Preliminary No growth in 48 hours. 08/31/22 12:56 Urine, Random Urine Culture - Final Streptococcus agalactiae (B) Physical Exam Const alert Constitutional Narrative: Fatigued in appearance. General Appearance: ill appearing and frail HEENT normocephalic and head/scalp atraumatic Eyes PERRL and EOMs intact bilaterally Neck supple General: trachea midline Chest inspection of chest normal Resp Effort and Inspection: tachypneic Auscultation: diminished lung sounds; Negative for rales, rhonchi or wheezes Cardio S1 normal heart sound and S2 normal heart sound Rate: tachycardic GI normal to inspection, nondistended, normoactive bowel sounds Inspection: GI tube present Extremity no clubbing, cyanosis or edema Skin no rashes or lesions noted Neuro CN's II-XII intact bilaterally Neuro Narrative: Flaccid left-sided paralysis Psych Mood & Affect: flat affect Assessment & Plan Assessment/Plan (1) Hepatic failure: PLAN: Multiple hepatic metastasis secondary to metastatic esophageal cancer. Patient has elected to undergo hospice. (2) Esophagus cancer: PLAN: Esophageal cancer status post dilation and PEG tube placement. If patient is hospice I will sign off. Please feel free to reconsult for any questions. (3) Dysphagia: Charges/Coding Visit Charges Inpatient E&M: 33847 Subs Hosp L2
--- NOTE | 2022-09-06 15:48 | DS.PCM_ITS ---
Providers Date of Admission: 08/31/22 Date of Discharge: 09/06/22 Primary Care Physician: Dr. Benitez Anguiano MD Consultations 08/31/22 19:37 Consult: Cardiology Routine Consulting Provider: Abe Amin Reason for Consult: elevated troponin EMERGENT Consult: No Notified: Yes Date Notified: 08/31/22 Time Notified: 16:36 Method of Notification: Text 09/03/22 16:44 Consult: Gastroenterology Routine Consulting Provider: [facility] Reason for Consult: need for peg tube placement EMERGENT Consult: No MD Notified: Yes Date Notified: 09/03/22 Time Notified: 16:44 Method of Notification: Verbal 09/04/22 07:22 Consult: Home Economist / Pulmonary Medicine Routine Consulting Provider: Shane Sheldon Reason for Consult: septic shock EMERGENT Consult: No Notified: Yes Date Notified: 09/04/22 Time Notified: 06:53 Method of Notification: Text 09/04/22 09:39 Consult: General Surgery Routine Consulting Provider: Mike Orona Reason for Consult: IVC Filter EMERGENT Consult: No Notified: Yes Date Notified: 09/04/22 Time Notified: 09:39 Method of Notification: Answering Service 09/05/22 17:13 Consult: Oncology/Hematology Routine Consulting Provider: [facility] Reason for Consult: esophageal cancer EMERGENT Consult: No Notified: Yes Date Notified: 09/05/22 Time Notified: 17:13 Method of Notification: Verbal Reason For Visit: CVA Diagnosis Discharge Diagnosis (1) Acute right MCA stroke: Status: Acute Code(s): I63.511 - Cerebral infarction due to unspecified occlusion or stenosis of right middle cerebral artery (2) Stroke: Status: Acute Code(s): I63.9 - Cerebral infarction, unspecified (3) Dysphagia: Status: Acute Code(s): R13.10 - Dysphagia, unspecified (4) Esophagus cancer: Status: Acute Code(s): C15.9 - Malignant neoplasm of esophagus, unspecified (5) Hepatic failure: Status: Acute Code(s): K72.90 - Hepatic failure, unspecified without coma Plan 1. Acute right ischemic MCA stroke-patient will remain on aspirin, patient is being seen by PT and OT as well as speech therapy, tube feedings were started on the patient #2 Myocardial injury-secondary to large ischemic stroke, I believe that non- STEMI was ruled out #3 recently diagnosed esophageal adenocarcinoma involving the lower half of the esophagus to the GE junction with metastases to the liver #4 hypernatremia-patient was taken off fluids for now, labs will be monitored, patient is receiving free water through his PEG tube along with tube feedings, labs will be monitored, sodium and chloride are somewhat better than yesterday. #5 Chronic severe protein and caloric malnutrition-related to esophageal cancer as evidenced by a 20.2 pound weight loss in 2 to 3 months, less than 75% intake of estimated energy needs for more than a month and moderate fat and muscle loss to temporal and orbital regions-full liquid diet will be continued with consistency per speech therapy, Ensure Plus high-protein 3 times daily with meals has been ordered, patient will have a PEG tube insertion tomorrow which will provide nutritional support for the patient. #6 VTE of the lower extremity and PE-patient has refused an IVC filter according to general surgery. #7 hypokalemia #8 acute blood loss anemia secondary to esophageal cancer requiring blood transfusion #9 hypoxia secondary to aspiration #10 acute aspiration secondary to esophageal adenocarcinoma Prognosis of patient overall poor due to the patient's large stroke and overall poor medical condition. Patient has been accepted by hospice, they will work on providing an inpatient hospice bed for the patient. Medications at Discharge Home Medications pantoprazole 40 mg tablet,delayed release 40 mg PO DAILY 08/31/22 Hospital Course Operations None Procedures Blood transfusion and Peg tube placement Summary of Care Provided Minutes Spent on Discharge: 31 Hospital Course: This 52-year-old white male was brought to the emergency room at [facility] for evaluation after being found down by his family. It was unknown how long the patient had been down. Patient was noted to have complete left-sided paralysis, CTA was performed when it revealed an acute right MCA stroke, patient was not a tPA candidate due to the unknown onset of the stroke. Labs showed the hemoglobin to be low at 9.3. Patient was not felt to be a candidate for clot retrieval due to the timeframe of his symptoms. Patient's troponin was elevated at 1199. Patient was admitted to PCU, he was seen in consultation with cardiology who did not feel that a work-up for his troponin elevation was warranted due to the patient's severe deficits from his stroke, MRI was obtained which confirmed a large ischemic infarction involving the right temporal lobe, right insular lobe, and the lenticulostriate branches of the right M1 segment. Patient received blood transfusion due to his anemia, he was seen by PT and OT as well as speech therapy, he underwent a barium swallow which showed evidence of retained material in the distal esophagus, patient had undergone an upper endoscopy approximately 3 weeks prior which revealed esophageal cancer, patient was due to follow-up with an oncologist for evaluation of treatment when he had his stroke. After talking with the patient, he changed his CODE STATUS to DNR CC arrest without intubation, he did agree to a PEG tube insertion, he became hypoxic for a period of time and had to be transferred to the ICU for care, he was placed on antibiotics for suspected aspiration pneumonia, CTA of the chest revealed that the patient had pulmonary emboli, he had a duplex scan of his legs performed which also showed evidence of VTE. Patient was seen by general surgery who talked with the patient, patient declined an IVC filter, he was felt not to be a candidate for full anticoagulation due to his massive stroke. Based his respiratory status stabilized and he was transferred to the PCU, a PEG tube was inserted, there was noted to be retained food particles in the esophagus during the procedure and evidence of cancer from the mid esophagus to the GE junction. Patient was seen in consultation by oncology (Dr. Lomax) who felt that the patient was a poor candidate for aggressive treatment. Further conversations were carried out with the patient and he finally consented to hospice consultation, hospice saw the patient on 09/06/2022 and met with the patient's mother who assists closest relative. Arrangements were made to transport the patient to the inpatient hospice care facility that day. Patient was seen and examined on 09/06/2022:alert and no apparent distress Constitutional Narrative: Patient replies appropriately to questions, his gaze is directed to the right General Appearance: cooperative, well kempt and well developed Orientation / Consciousness: awake, oriented to person and oriented to place HEENT normocephalic, head/scalp atraumatic and moist oral mucous membranes Eyes PERRL, EOMs intact bilaterally and conjunctivae normal Neck supple, no JVD, thyroid normal and no carotid bruits General: trachea midline Resp normal respiratory effort, no retractions, no use of accessory muscles and clear to auscultation bilaterally Auscultation: Negative for rales, rhonchi or wheezes Cardio regular rate, regular rhythm, S1 normal heart sound, S2 normal heart sound, no murmurs, no rub and no gallops Cardio Narrative: Heart rate and rhythm is tachycardic GI normal to inspection, nondistended, normoactive bowel sounds, soft to palpation, non-tender and non-distended Extremity no clubbing, cyanosis or edema Skin no rashes or lesions noted General Skin Exam: no breakdown Neuro CN's II-XII intact bilaterally Neuro Narrative: Patient has left hemiplegia, patient's speech is slow and deliberate Sensorium / Orientation: awake and alert Psych Psych Narrative: Patient has flat affect Patient was transported to the inpatient hospice care facility on 09/06/2022 in poor but stable condition. Medical Records Data Medical Nutrition Assessment Dietitian: Malnutrition Criteria Met Start: 09/02/22 14:49 Freq: Status: Active Protocol: Document 09/05/22 10:59 AG (Rec: 09/05/22 10:59 AG [id number]) Nutrition Malnutrition Evidence of Malnutrition Exists Yes Malnutrition (severe): Chronic Evidenced By Suboptimal Energy Intake ( Severe),Weight Loss (Severe), Physical Changes (Moderate) Intake Problem Inadequate Oral Intake Etiology related to esophageal cancer Signs/Symptoms as evidenced by patient report of Clear Liquid diet prior to admission and suboptimal appetite. Status Active Problem Clinical Problem Chronic Disease or Condition Related Malnutrition Etiology severe, chronic malnutrition related to esophageal cancer Signs/Symptoms as evidenced by 20.2lbs (13.9% ) weight loss in 2-3 months, < 75% intake of estimated energy needs for >1 month and moderate fat and muscle loss to temporal and orbital regions. Status Active Problem Unintended Weight Loss Etiology related to predicted inadequate oral intake and esophageal cancer Signs/Symptoms as evidenced by 9.9lbs (7.3%) weight loss in 12 days. Status Inactive Problem Recommendation Dietitian Recommendations/Changes NPO per [employer]; Via PEG- Jevity 1 .5 225mL bolus 5x/day w/ 100mL H2O flush before and after each bolus to provide 1688 calories, 80 g protein, and 1855mL fluid/day. Will start w / 125mL bolus and increase by 50mL w/ each bolus as tolerated until goal volume is achieved. Discussed w/ Dr. Macias, will continue 200mL H2O flush every 4 hours in addition to tube feeds d/t hypernatremia. Daily wts. Weight / BMI Weight Weight: 58.2 kg Body Mass Index (BMI) 21.3 ABG / Lab / Microbiology Data Result Diagrams: 09/06/22 06:20 09/06/22 06:20 Laboratory: Laboratory Results - last 24 hr 09/03/22 12:08: Crossmatch See Detail 09/03/22 12:08: Crossmatch See Detail 09/05/22 17:08: Vancomycin Trough 12.0 09/06/22 01:30: Hgb 8.8 L, Hct 27.3 L 09/06/22 06:20: WBC 14.9 H, RBC 2.87 L, Hgb 8.6 L, Hct 25.8 L, MCV 89.9, MCH 30.0, MCHC 33.3 D, RDW Std Deviation 49.1 H, RDW Coeff of Lexus 15.6 H, Plt Count 188, MPV 11.7, Immature Gran % (Auto) 2.300 H, Neut % (Auto) 81.2 H, Lymph % (Auto) 11.5 L, Ada % (Auto) 4.5, Eos % (Auto) 0.2, Baso % (Auto) 0.3, Absolute Neuts (auto) 12.1 H, Absolute Lymphs (auto) 1.71, Nucleated RBC % 1.3 09/06/22 06:20: Sodium 154 H, Potassium 3.1 L, Chloride 123 H, Carbon Dioxide 24.0, Anion Gap 7, BUN 51 H, Creatinine 0.97, Estim Creat Clear Calc 75.00, Est GFR (MDRD) Af Amer 105, Est GFR (MDRD) Non-Af 87, BUN/Creatinine Ratio 52.4 H, Glucose 137 H, Calcium 7.7 L Microbiology: Microbiology 09/04/22 05:30 Urine, Catheterized Urine Culture - Final Culture exhibits no growth. 09/04/22 05:35 Blood Culture (Wb) - Anticubital Left Blood Culture - Preliminary No growth in 48 hours. 09/04/22 05:40 Blood Culture (Wb) - Left Hand Blood Culture - Preliminary No growth in 48 hours. 08/31/22 12:56 Urine, Random Urine Culture - Final Streptococcus agalactiae (B) Meaningful Use Info Meaningful Use Diagnoses (Choose all that apply): Ischemic CVA and VTE CVA Therapy Assessed for PT,OT and/or ST?: Yes Ischemic Stroke Antithrombotic order at d/c?: No Reason antithrombotic not ordered: Hospice Dx of Atrial fib/flutter?: No Anticoagulant at discharge?: No Reason anticoagulant not ordered: Hospice Statins at discharge?: No Reason Statin not ordered: Hospice Primary Dx Acute Ischemic CVA?: Yes IV tPA ordered during stay?: No Reason IV t-PA not ordered: Medical Contraindication VTE Anticoag overlap given w/in hospital stay or rx'd at dc?: No Pt receive overlap for 5 days?: No Reason overlap not ordered, prescribed, or given for 5 days: Hospice Care Discharge Plan Admission Admit Date/Time: 08/31/22 15:27 Attending Provider: Gene Macias Primary Care Provider: Benitez Anguiano Consulting Providers: Mitchel Lucero ; Abe Amin ; Mike Orona ; Shane Sheldon ; Jefry Daily ; Bibi Martell ; Harlan Orellana ; Rakesh Wesley ; Cyrus Lomax Discharge Orders/Prescriptions Prescriptions: No Action pantoprazole 40 mg tablet,delayed release (DR/EC) 40 mg PO DAILY Label Comments: take 1 tablet by mouth every morning before meals as directed Referrals / Follow Up: Benitez Anguiano MD [Primary Care Provider] - Care Physician,No Primary [Non-Staff] - Disposition Discharge Orders: Discharge Patient (Routine); Ordered 09/06/22 Ordered By: Dr. Gene Macias Charges/Coding Visit Charges Inpatient E&M: 64650 Disch Hosp
[2022-09-06] MEDS: Potassium Chloride Oral Soln 20 MEQ/15 ML UDC 40 MEQ GT (16:35)
--- NOTE | 2022-09-06 19:29 | NURSING ---
hospice here to eval and meet with pt and pt's mother. room available and pt to go at 1630. transfer set up.
[2022-09-08 14:15] LABS: Pathologist Review Reviewed
== END 2022-09-06 16:45 | disposition hospice, inpatient (51) | DRG 64 ==
LOC: ED 13:13 → PCU 15:44 → ICU 09-04 07:19 → PCU 09-05 02:49
PROVIDERS: Anesthesiology; Hospitalist; Internal Medicine Critical Care Medicine; Internal Medicine Gastroenterology; Physician Assistant; Emergency Provider Emergency Medicine; PCP Internal Medicine Gastroenterology; Visit Provider Internal Medicine
PROC: 0DJ08ZZ Inspection of Upper Intestinal Tract, Via Natural or Artificial Opening Endoscopic (ICD-10-PCS; CPT 43235; principal; 2022-09-04 12:40)
DX: I63.511 Cerebral infarction due to unspecified occlusion or stenosis of right middle cerebral artery (principal); I26.99 Other pulmonary embolism without acute cor pulmonale; J96.01 Acute respiratory failure with hypoxia; J69.0 Pneumonitis due to inhalation of food and vomit; A41.9 Sepsis, unspecified organism; E43 Unspecified severe protein-calorie malnutrition; C78.89 Secondary malignant neoplasm of other digestive organs; C15.4 Malignant neoplasm of middle third of esophagus; C16.0 Malignant neoplasm of cardia; G81.94 Hemiplegia, unspecified affecting left nondominant side; I82.403 Acute embolism and thrombosis of unspecified deep veins of lower extremity, bilateral; E87.0 Hyperosmolality and hypernatremia; D62 Acute posthemorrhagic anemia; I5A Non-ischemic myocardial injury (non-traumatic); K22.2 Esophageal obstruction; K72.90 Hepatic failure, unspecified without coma; E86.0 Dehydration; I10 Essential (primary) hypertension; E87.8 Other disorders of electrolyte and fluid balance, not elsewhere classified; E87.6 Hypokalemia; D63.0 Anemia in neoplastic disease; F17.210 Nicotine dependence, cigarettes, uncomplicated; T18.128A Food in esophagus causing other injury, initial encounter; M62.81 Muscle weakness (generalized); R29.707 NIHSS score 7; Z66 Do not resuscitate; Z79.82 Long term (current) use of aspirin; R79.1 Abnormal coagulation profile; R53.81 Other malaise; Z79.899 Other long term (current) drug therapy; Z68.20 Body mass index [BMI] 20.0-20.9, adult; R29.810 Facial weakness; R13.12 Dysphagia, oropharyngeal phase
CPT/HCPCS: 36415; 36600; 70496; 70498; 70551; 71045; 71275; 74177; 74230; 80048; 80053; 80061; 80202; 81001; 82550; 82803; 82962; 83605; 83880; 84484; 85014; 85018; 85025; 85610; 85730; 86850; 86900; 86901; 86920; 86921; 86922; 87040; 87077; 87086; 87088; 87186; 92526; 92610; 92611; 93005; 93306; 93970; 94660; 94762; 97110; 97162; 97166; 97530; 97535; 97803; 99285; J7030; J7040; J7050; J7120; P9016; P9040; Q9957; Q9967; A4216; C8929; J0295; J1940; J2405